=== PATIENT | male | born 1940 | race Caucasian/White ===

== ENCOUNTER → 2017-04-17 | Outpatient (CLI) | payer MEDICARE ==
[~2017-04-17] MED LIST: ASA325 PO; GLIMEPIRIDE4 MG PO; NORCO 7.5-3251 EACH PO; PHENTERMINE H37.5 MG PO
--- NOTE | 2017-04-18 08:37 | Diagnostic Imaging Report ---
Exam: Lumbar spine MRI without IV contrast History: Low back pain with left-sided sciatica. Comparison studies: Lumbar spine CT 03/05/2017. Technique: Sagittal and axial T2 , sagittal T1 and IR, axial spin density oblique. Intravenous contrast: None Findings: Number of lumbar vertebral bodies: 5. Alignment: Normal lumbar lordosis. Mild S shaped scoliosis with thoracolumbar curvature convex to the left at T11 and mild lumbar curvature convex to the right centered at L3-L4. Soft tissues: No T2 hyperintense inflammatory changes. Paraspinal muscles: Mild symmetric atrophy. Lower thoracic cord: Normal in signal and morphology. The tip of the conus is at L1. Cauda equina: No masses. No arachnoiditis. Vertebrae: Incidental few scattered T1 hyperintense vertebral body hemangiomas. No infection or other neoplasm. No acute fractures. Chronic anterior wedge compression deformity at T11 results in approximately 75% height loss anteriorly on the right. Chronic T10 superior endplate deformity results in approximately 40% height loss centrally. Degenerative changes: T10-T11: Mildly degenerated disc. Minimal retropulsion of the superior T11 endplate results in minimal canal stenosis. Patent foramina. T11-T12 and T12-L1: Right anterior marginal osteophytes. Patent canal and foramina. L1-L2: Mildly degenerated disc with mild endplate edema on the right due to curvature. Minimal retrolisthesis of L1 on L2 with associated uncovered disc/disc bulge asymmetric to the right, right foraminal disc osteophyte complex, facet arthrosis, and thickened ligamentum flavum with mild canal stenosis and moderate right foraminal stenosis. No significant left frontal stenosis. L2-L3: Mildly degenerated disc. Asymmetric right disc bulge, thickened ligamentum flavum and facet arthrosis with mild canal and bilateral foraminal stenosis. L3-L4: Mildly degenerated disc. Minimal anterolisthesis of L3 on L4 with associated disc bulge, small central disc protrusion, thickened ligamentum flavum and facet arthrosis with mild to moderate right foraminal stenosis, mild left foraminal stenosis and mild canal stenosis. L4-L5: Moderately degenerated disc with loss of disc height. Disc osteophyte complex with calcified central disc extrusion, thickened ligamentum flavum and facet arthrosis with mild canal stenosis and mild bilateral foraminal stenosis (left greater than right). L5-S1: Mildly degenerated disc. Disc osteophyte complex with small central calcified disc extrusion and facet arthrosis without significant canal stenosis or foraminal stenosis. No nerve root impingement. IMPRESSION: 1. Chronic T11 anterior wedge and superior T10 endplate compression deformities with mild thoracolumbar scoliosis. No acute fractures. 2. Multilevel disc degeneration, worse/moderate at L4-L5. 3. Mild degenerative canal stenosis from L1 to L5. 4. Degenerative foraminal stenosis from L1 to L4, worse/moderate on the right at L1-L2. Signed by: Dr. Rolando Aguilera M.D. on 04/18/2017 8:34 AM
== END ==
LOC: MRI 13:31
PROVIDERS: ATTEND Internal Medicine
DX: M54.32 Sciatica, left side (principal)
CPT/HCPCS: 72148

== ENCOUNTER 2018-07-05 07:22 | Inpatient (IN) | payer MEDICARE ==
[~2018-07-05] VITALS: Ht 177.8 cm; Wt 95.0 kg
[~2018-07-05 07:22] MED LIST changes: +ALEVE220 M1 PO; +AUGMENTIN 500-1 EACH PO; +METFORMIN HCL500 MG PO
--- OUTSIDE RECORDS SUMMARY | 2018-07-05 07:26 | XMS REPORT ---
Author Author [facility] Address Unknown Phone Unavailable Care Team Providers Care Exchange Administrator Name Role Phone MAURICE BARRON Unavailable Unavailable DONTRELL WATERS Unavailable Unavailable Problems This patient has no known problems. Allergies, Adverse Reactions, Alerts This patient has no known allergies or adverse reactions. Medications This patient has no known medications. Results Test Description Test Time Test Comments Text Results Atomic Results Result Comments CHEST 2 VIEWS 2018-07-04 14:53:00 [place] [address] Patient Name: NIKKIE CANTRELL MR #: [id number] : 1940 Age/Sex: 77/M Req #: [id number] Adm Physician: Ordered by: MAURICE BARRON MD Report #: [id number] Location: OR Room/Bed: Procedure: [id number] DX/CHEST 2 VIEWS Exam Date: 07/04/18 Exam Time: 1400 REPORT STATUS: Signed EXAM: CHEST 2 VIEWS, PA and lateral DATE: 07/04/2018 Time sta mp on exam: 2:07 PM INDICATION: Preoperative COMPARISON: None FINDINGS: LINES/TUBES: None LUNGS: No consolidations or edema. PLEURA: No effusions or pneumothorax. HEART AND MEDIASTINUM: Normal size and contour. BONES AND SOFT TISSUES: Extensive osteophytosis of the thoracic spine. IMPRESSION: No acute thoracic abnormality. Signed by: Dr. Fransisco Landry DO on 07/04/2018 2:54 PM Dictated By: FRANSISCO LANDRY DO 53 Transcribed By: ALESSIO on 07/04/181453 COPY TO: MAURICE BARRON MD MRI SPINE LUMBAR WO [place] [address] Patient Name: NIKKIE CANTRELL MR #: [id number] : 1940 Age/Sex: 76/M Req #: [id number] Adm Physician: Ordered by: DONTRELL WATERS MD Report #: [id number] Location: MRI Room/Bed: Procedure: [id number] MRI/MRI SPINE LUMBAR WO Exam Date: Exam Time: REPORT STATUS: Signed Exam: Lumbar spine MRI without IV contrast History: Low back pain with left-sided sciatica. Comparison studies: Lumbar spine CT 03/05/2017. Technique: Sagittal and axial T2 , sagittal T1 and IR, axial spin density oblique. Intravenous contrast: None Findings: Number of lumbar vertebral bodies: 5. Alignment: Normal lumbar lordosis. Mild S shaped scoliosis with thoracolumbar curvature convex to the left at T11 and mild lumbar curvature convex to the right centered at L3-L4. Soft tissues: No T2 hyperintense inflammatory changes. Paraspinal muscles: Mild symmetric atrophy. Lower thoracic cord: Normal in signal and morphology. The tip of the conus is at L1. Cauda equina: No masses. No arachnoiditis. Vertebrae: Incidental few scattered T1 hyperintense vertebral body hemangiomas. No infection or other neoplasm. No acute fractures. Chronic anterior wedge compression deformity at T11 results in approximately 75% height loss anteriorly on the right. Chronic T10 superior endplate deformity results in approximately 40% height loss centrally. Degenerative changes: T10-T11: Mildly degenerated disc. Minimal retropulsion of the superior T11 endplate results in minimal canal stenosis. Patent foramina. T11-T12 and T12-L1: Right anterior marginal osteophytes. Patent canal and foramina. L1-L2: Mildly degenerated disc with mild endplate edema on the right due to curvature. Minimal retrolisthesis of L1 on L2 with associated uncovered disc/disc bulge asymmetric to the right, right foraminal disc osteophyte complex, facet arthrosis, and thickened ligamentum flavum with mild canal stenosis and moderate right foraminal stenosis. No significant left frontal stenosis. L2-L3: Mildly degenerated disc. Asymmetric right disc bulge, thickened ligamentum flavum and facet arthrosis with mild canal and bilateral foraminal stenosis. L3-L4: Mildly degenerated disc. Minimal anterolisthesis of L3 on L4 with associated disc bulge, small central disc protrusion, thickened ligamentum flavum and facet arthrosis with mild to moderate right foraminal stenosis, mild left foraminal stenosis and mild canal stenosis. L4-L5: Moderately degenerated disc with loss of disc height. Disc osteophyte complex with calcified central disc extrusion, thickened ligamentum flavum and facet arthrosis with mild canal stenosis and mild bilateral foraminal stenosis (left greater than right). L5-S1: Mildly degenerated disc. Disc osteophyte complex with small central calcified disc extrusion and facet arthrosis without significant canal stenosis or foraminal stenosis. No nerve root impingement. IMPRESSION: 1. Chronic T11 anterior wedge and superior T10 endplate compression deformities with mild thoracolumbar scoliosis. No acute fractures. 2. Multilevel disc degeneration, worse/moderate at L4-L5. 3. Mild degenerative canal stenosis from L1 to L5. 4. Degenerative foraminal stenosis from L1 to L4, worse/moderate on the right at L1-L2. Signed by: Dr. Maurice Aguilera M.D. on 04/18/2017 8:34 AM Dictated By: MAURICE AGUILERA MD 3 Transcribed By: ALESSIO on 04/18/17833 COPY TO: DOTNRELL WATERS MD CT LUMBAR SPINE [place] [address] Patient Name: NIKKIE CANTRELL MR #: [id number] : 1940 Age/Sex: 76/M [facility] #: [id number] Re #: [id number] [facility] Physician: Ordered by: DONTRELL WATERS MD Report #: [id number] Location: CT Room/Bed: Procedure: [id number] CT/CT LUMBAR SPINE WO Exam Date: 02/13/17 Exam Time: 1430 REPORT STATUS: Signed EXAMINATION: CT of the lumbar spine HISTORY:Low back pain, radiculopathy COMPARISON:None available TECHNIQUE: Multidetector helical axial images were obtained without contrast from L1 to S1. The images were reconstructed using bone and soft tissue algorithms and were viewed in axial, sagittal, and coronal planes. FINDINGS: Alignment:Normal alignment and lordosis. Minimal degenerative retrolisthesis at L1-L2 and anterolisthesis at L3-L4. Mild S-shaped scoliosis Vertebral bodies:Normal height and density. Paraspinal muscles:Normal. Intervertebral disks: L1-L2: Mild symmetric disc and facet arthrosis. Moderate canal stenosis. Moderate right and mild left foraminal stenoses L2-L3: Mild symmetric disc bulge and facet arthrosis. Mild canal and foraminal narrowing.. L3-L4: Mild symmetric disc bulge, ligamenta flava thickening and facet arthrosis. Moderate canal and mild foraminal stenoses. L4-L5: Disc osteophyte complex formation, central disc vacuum phenomena, marginal endplate osteophytes, ligamenta flava thickening and facet arthrosis. Moderate spinal canal and bilateral foraminal stenosis.. L5-S1: Posterior disc osteophyte and bilateral facet arthrosis. Minimal foraminal narrowing.. Visualized sacroiliac joints: Prominent degenerative changes with fusion of the partially visualized right SI joint. IMPRESSION: 1. Moderate degenerative spinal canal and right foraminal stenosis at L1 S2. 2. Moderate degenerative spinal canal and mild foraminal stenosis at L3-L4. 3. Moderate degenerative spinal canal and foraminal stenosis at L4-L5. 4. Partially visualized degenerative changes of the sacroiliac joints with fusion on the right. Signed by: Dr. Stepan Padron M.D. on 02/14/2017 8:36 AM Dictated By: STEPAN PADRON MD 5 Transcribed By: ALESSIO on 02/14/17835 COPY TO: DONTRELL WATERS MD CT CHEST WO [place] [address] Patient Name: NIKKIE CANTRELL MR #: [id number] : 1940 Age/Sex: 76/M Req #: [id number] Adm Physician: Ordered by: DONTRELL WATERS MD Report #: [id number] Location: CT Room/Bed: Procedure: [id number] CT/CT CHEST WO Exam Date: 02/13/17 Exam Time: 1430 REPORT STATUS: Signed PROCEDURE: CT CHEST WITHOUT CONTRAST CT scan of the chest WITHOUT intravenous contrast, using standard protocol. TECHNIQUE: The chest was scanned utilizing a multidetector helical scanner from the apex to the level of the adrenal glands. No IV contrast was administered per physician's request. Coronal and sagittal multiplanar reformations were obtained. COMPARISON: None. INDICATIONS: SOB FINDINGS: Lines/tubes: None. Lungs and Airways: Linear subsegmental atelectasis versus scarring in the posteromedial right lower lobe (sagittal image 15, and series 3, image 92) and lingula (series 3, image 89). No consolidation or other opacities, masses, or pulmonary nodules. Airways are clear, without endobronchial lesions.. Pleura: No effusion, or pneumothorax. Heart and mediastinum: Thyroid is unremarkable. Heart size is normal. No pericardial effusion. Mild atherosclerotic calcification of the aortic valve and coronary arteries. Moderate atherosclerotic calcification of the thoracic aortic arch. Aorta is non-aneurysmal. No pulmonary artery is normal in caliber. Lymph nodes: No mediastinal, hilar, or axillary adenopathy. Abdomen: Limited views of the upper abdomen show no abnormality within the visualized liver, spleen, pancreas. The adrenal glands are unremarkable. Bones: No acute bony abnormalities. Multilevel degenerative disc changes in the thoracic spine. Soft tissues are grossly unremarkable. IMPRESSION: 1. subsegmental atelectasis versus scarring in the posteromedial right lower lobe and lingula. The lungs are otherwise clear. Cynthia Ruggiero M.D. Dictated by: Cynthia Ruggiero M.D. on 02/13/2017 at 19:05 Electronically approved by: Cynthia Ruggiero M.D. on 02/13/2017 at 19:05 Dictated By: CYNTHIA RUGGIERO MD 04 Transcribed By: MEI on 02/13/171904 COPY TO: DONTRELL WATERS MD
[2018-07-05] MEDS ORDERED: MORPHINE SULFATE 2 MG/ML SYR 1ML IV PRN (07:30)
[2018-07-05] MEDS ORDERED: ONDANSETRON HCL INJ 2MG/ML 2ML 2 MG/ML VIAL IV PRN (07:30)
--- NOTE | 2018-07-05 08:17 | NUR ---
Pt arrived to the ER with c/o abnormal labs. Pt states he came yesterday to have preop testing and states his bilirubin was 10.7 and sent to the ER for further eval. Pt states he is scheduled to have a cholecystectomy Saturday. Pt reports pain to RUQ abdomen currently 05/18, states does not need any pain medication at the time, Dr. Alvarado present. Pt AAOx4. RR even and unlabored. Pt placed on cardiac monitoring, NIBP and pulse ox. Call light in reach. NAD noted. at bedside. Will continue to monitor.
[2018-07-05 08:21] LABS: BASOPHILS # (AUTO) 0.1 (0.0-0.1); BASOPHILS % 1.1 % (0.0-1.0); EOSINOPHILS # (AUTO) 0.2 (0.0-0.4); EOSINOPHILS % 2.7 % (0.0-6.0); HEMATOCRIT 43.3 % (38.2-49.6); HEMOGLOBIN 14.8 g/dL (14.0-18.0); LYMPHOCYTES # (AUTO) 1.4 (1.0-3.2); LYMPHOCYTES % 21.7 % (18.0-39.1); MEAN CORPUSCULAR HEMOGLOBIN 30.5 pg (28-32); MEAN CORPUSCULAR HGB CONC 34.2 g/dL (31-35); MEAN CORPUSCULAR VOLUME 89.3 fL (81-99); MONOCYTES # (AUTO) 0.6 (0.2-0.8); MONOCYTES % 9.6 % (4.4-11.3); NEUTROPHILS % 64.1 % (38.7-80.0); PLATELET COUNT 191 x10e3/uL (140-360); RED BLOOD COUNT 4.85 x10e6/uL (4.3-5.7); RED CELL DISTRIBUTION WIDTH 13.2 % (11.7-14.4)
[2018-07-05 08:37] LABS: ALBUMIN 3.3 g/dL (3.5-5.0); ALBUMIN/GLOBULIN RATIO 0.8 (0.8-2.0); ANION GAP 14.3 mmol/L (8-16); CALCIUM 9.9 mg/dL (8.4-10.2); CREATININE, SERUM 1.24 mg/dL (0.72-1.25); POTASSIUM 4.3 mmol/L (3.5-5.1)
[2018-07-05] MEDS ORDERED: SODIUM CHLORIDE 0.9% 1000ML 1,000 ML IV STA (09:10)
[2018-07-05 09:26] LABS: BILIRUBIN,URINE 3+ (NEGATIVE); CLARITY,URINE HAZY (CLEAR); COLOR,URINE ORANGE (YELLOW); KETONES,URINE TRACE (NEGATIVE); LEUKOCYTE ESTERASE ,URINE NEGATIVE (NEGATIVE); NITRITE,URINE NEGATIVE (NEGATIVE); PROTEIN,URINE DIPSTICK 1+ (NEGATIVE); URINE UROBILINOGEN 1 mg/dL (0.2 - 1)
[2018-07-05 09:27] LABS: AMORPHOUS SEDIMENT,URINE MODERATE (FEW); BACTERIA,URINE MANY /HPF; EPITHELIAL CELLS,URINE MODERATE /LPF; HYALINE CASTS 0-1 (0-1); MUCUS,URINE MODERATE (RARE); RBC,URINE 0-5 /HPF (0-5)
--- NOTE | 2018-07-05 10:42 | Diagnostic Imaging Report ---
EXAM: CT Abdomen and Pelvis WITH contrast INDICATION: ^elevated bili ^[id number] ^1000 COMPARISON: Chest radiograph 07/04/2018 TECHNIQUE: Abdomen and pelvis were scanned utilizing a multidetector helical scanner from the lung base to the pubic symphysis after administration of IV contrast. Coronal and sagittal reformations were obtained. Routine protocol was performed. Scan was performed when during portal venous phase. IV CONTRAST: 100 mL of Isovue-370 ORAL CONTRAST: Water RADIATION DOSE: Total DLP: 645.37 mGy*cm Estimated effective dose: (DLP x 0.015 x size factor) mSv COMPLICATIONS: None FINDINGS: LINES and TUBES: None. LOWER THORAX: Unremarkable HEPATOBILIARY: No focal hepatic lesions. No intrahepatic biliary duct dilatation. However, there is mild dilatation of the common bile duct measuring 1 cm. No hyperdense stones are seen in the common bile duct. GALLBLADDER: 2 adjacent calcified gallstones measuring up to 0.7 cm near the gallbladder neck with associated mild distention of the gallbladder measuring 10 cm in length x 4.8 cm in transverse diameter. No wall thickening. SPLEEN: No splenomegaly. PANCREAS: No focal masses or ductal dilatation. ADRENALS: No adrenal nodules KIDNEYS/URETERS: Kidneys enhance symmetrically. No hydronephrosis. 2.2 cm low-attenuation upper pole right renal cyst. No stones. GI TRACT: No abnormal distention, wall thickening, or evidence of bowel obstruction. Appendix is not visualized. Surgical clip adjacent to a loop of small bowel in the left lower quadrant. PELVIC ORGANS/BLADDER: Unremarkable. LYMPH NODES: No lymphadenopathy. VESSELS: Unremarkable. PERITONEUM / RETROPERITONEUM: No free air or fluid. BONES: Moderate wedge compression deformity of T11 vertebral body. Moderate multilevel degenerative changes through the lumbar spine. Posterior osteophyte complex at L4-L5 without significant spinal canal narrowing. SOFT TISSUES: Small fat-containing bilateral inguinal hernias. IMPRESSION: Cholelithiasis near the gallbladder neck with associated distended gallbladder (gallbladder hydrops). Moderate dilatation of the common bile duct without visualized stones. No gallbladder wall thickening or pericholecystic fluid. Signed by: Dr. Delores Lynch M.D. on 07/05/2018 10:39 AM
--- NOTE | 2018-07-05 10:50 | NUR ---
RECEIVED TO GIOVANNA AAOX3 NO DISTRESS NOTED, UPDATED ON POC VOICED UNDERSTANDING, DENIES PAIN AT THIS TIME, R AC 20G NO SS OF INFILTRATION NOTED, NO OTHER CO VOICED,CALL LIGHT IN REACH WILL CONTINUE TO MONITOR
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
[2018-07-05 12:40] VITALS: BP 183/87
[2018-07-05] MEDS ORDERED: LISINOPRIL10 MG PO (12:49)
[2018-07-05] MEDS ORDERED: DEXTROSE 50% SYRINGE 50 ML IV PRN (14:00)
[2018-07-05] MEDS: INSULIN LISPRO 100 UNIT/1 ML 3ML VIAL SQ SCH ×2 (16:30→21:37)
[2018-07-05 17:24] VITALS: BP 189/91
--- NOTE | 2018-07-05 17:50 | Diagnostic Imaging Report ---
EXAM: Magnetic Resonance Cholangiopancreatography (M.R.C.P.) INDICATION: ^JAUDICE ^N COMPARISON: CT abdomen and pelvis 07/05/2018 TECHNIQUE: Multiplanar, multisequence MRCP was performed, with sequences including coronal turbo spin-echo T1-weighted scans, [facility] MRCP scans, coronal spin, coronal MPR 2, SMRCP 3D HR, [facility] MRCP GUERRIER. IV Contrast: None Oral Contrast: None Medications: None COMPLICATIONS: None FINDINGS: LOWER THORAX: Unremarkable. HEPATOBILIARY: No focal hepatic lesions. No intrahepatic biliary ductal dilation. Moderate dilatation of the common bile duct, measuring up to 1 cm in transverse diameter. There is abrupt cut off of the distal segment on series 8, image 28 and series 901 image 1. 1 compared this area to the thin slab MRCP there appears to be a 7 mm filling defect on series 11, image 12. GALLBLADDER: Again noted, there are 2 small gallstones near the gallbladder neck with associated mild distention of the gallbladder measuring up to 10 cm in length. The cystic duct is normal in caliber and without filling defects. SPLEEN: No splenomegaly. PANCREAS: No focal masses or ductal dilatation. ADRENALS: No adrenal nodules KIDNEYS/URETERS: No hydronephrosis. Unchanged right renal cyst. No stones. GI TRACT: No abnormal distention, wall thickening, or evidence of bowel obstruction. Appendix is normal. LYMPH NODES: No lymphadenopathy. VESSELS: Unremarkable. PERITONEUM / RETROPERITONEUM: No free air or fluid. BONES: Unremarkable. SOFT TISSUES: Unremarkable. IMPRESSION: 1. Cholelithiasis with associated distended gallbladder. No wall thickening or pericholecystic fluid collection to suggest acute cholecystitis. 2. Persistent dilatation of the common bile duct with suspected small distal stone near the ampulla of Vater. Consider conventional ERCP for definitive diagnosis. Signed by: Dr. Delores Lynch M.D. on 07/05/2018 5:47 PM
[2018-07-05] MEDS: CALCIUM CARBONATE 500 MG CHEWABLE TABS PO PRN (18:40)
--- NOTE | 2018-07-05 19:43 | NUR ---
Received patient in bedside report. Patient resting in bed, family member at bedside. No pain reported, no S&S of distress noted. Bed locked in lowest position, call light in reach.
[2018-07-05 20:00] VITALS: BP 165/78
[2018-07-05 20:10] VITALS: BP 165/78
--- NOTE | 2018-07-05 20:10 | NUR ---
Patient noted to have own socks on. Got non-skid footwear and explained importance of wearing them any time he stands up or ambulates. Patient refused to put them on at this time and said he didn't think he needed them. Explained importance of wearing them as a safety measure to prevent falls. Placed them at end of bed and asked him to put them on before he got up to walk. Patient verbalized understanding.
[2018-07-05] MEDS ORDERED: SODIUM CHLORIDE 0.9% 50ML 50 ML ONE (21:11)
[2018-07-05] MEDS ORDERED: IOPAMIDOL 370 MG/ML 200 ML INFUS..BTL INJ ONE (21:11)
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
[2018-07-06] VITALS (8 sets, daily range): BP systolic 153–181; BP diastolic 76–86
[2018-07-06 06:15] LABS: BASOPHILS # (AUTO) 0.1 (0.0-0.1); BASOPHILS % 1.1 % (0.0-1.0); EOSINOPHILS # (AUTO) 0.2 (0.0-0.4); EOSINOPHILS % 3.2 % (0.0-6.0); HEMATOCRIT 40.8 % (38.2-49.6); HEMOGLOBIN 14.1 g/dL (14.0-18.0); LYMPHOCYTES # (AUTO) 1.3 (1.0-3.2); LYMPHOCYTES % 20.4 % (18.0-39.1); MEAN CORPUSCULAR HEMOGLOBIN 30.9 pg (28-32); MEAN CORPUSCULAR HGB CONC 34.6 g/dL (31-35); MEAN CORPUSCULAR VOLUME 89.5 fL (81-99); MONOCYTES # (AUTO) 0.5 (0.2-0.8); MONOCYTES % 7.8 % (4.4-11.3); NEUTROPHILS # (AUTO) 4.1 (2.1-6.9); NEUTROPHILS % 66.7 % (38.7-80.0); PLATELET COUNT 176 x10e3/uL (140-360); RED BLOOD COUNT 4.56 x10e6/uL (4.3-5.7); RED CELL DISTRIBUTION WIDTH 13.2 % (11.7-14.4)
[2018-07-06 06:37] LABS: ALANINE AMINOTRANSFERASE 283 IU/L (0-55); ALBUMIN/GLOBULIN RATIO 0.8 (0.8-2.0); ALKALINE PHOSPHATASE 187 IU/L (40-150); ANION GAP 12.2 mmol/L (8-16); BLOOD UREA NITROGEN 13 mg/dL (7-26); BUN/CREATININE RATIO 12 (6-25); CALCIUM 9.4 mg/dL (8.4-10.2); CARBON DIOXIDE 18 mmol/L (22-29); CHLORIDE 109 mmol/L (98-107); CREATININE, SERUM 1.11 mg/dL (0.72-1.25); EST GLOMERULAR FILTRATION RATE > 60 ML/MIN (60-); GLUCOSE 145 mg/dL (74-118); POTASSIUM 4.2 mmol/L (3.5-5.1); SODIUM 135 mmol/L (136-145)
--- NOTE | 2018-07-06 07:00 | NUR ---
assessment complete no distress noted denies pain at this time, r ac 20g no ss of infiltration noted, no other co voiced call light in reach will continue to monitor
[2018-07-06 07:20] LABS: CHOL/HDL RATIO 9.4 (3.9-4.7); MAGNESIUM 1.6 MG/DL (1.3-2.1); PHOSPHORUS 2.9 MG/DL (2.3-4.7)
[2018-07-06] MEDS: INSULIN LISPRO 100 UNIT/1 ML 3ML VIAL SQ SCH ×4 (07:30→21:16)
[2018-07-06] MEDS: LISINOPRIL 10 MG TAB PO SCH (08:59)
--- NOTE | 2018-07-06 09:19 | Progress Note ---
DATE: SUBJECTIVE: The patient is a 77-year-old man comes in with cholecystitis. The patient also has had ERCP done yesterday, which showed a defect in the CBD. Currently continues to have abdominal pain, but controlled. The patient is alert and oriented x3. PHYSICAL EXAMINATION: VITAL SIGNS: Temperature is 98.5, blood pressure is 157/79, and pulse oximetry of 97%. HEENT: Normocephalic, atraumatic. Pupils have icterus. CVS: S1 and S2, normal. Regular rhythm. ABDOMEN: Tender in the upper right quadrant. LUNGS: Good air entry into lung skelton. EXTREMITIES: No clubbing, no cyanosis, no edema. LABORATORY VALUES: White count is 6.18, hemoglobin of 14.1, and hematocrit of 40.8. Chemistries; sodium of 135, potassium of 4.2, BUN of 13, and creatinine of 1.11. AST is 135, ALT is 283, alkaline phos is 187, and total bilirubin is 11 today. ASSESSMENT: 1. Acute cholecystitis. 2. The patient needs cholecystectomy. The patient's MRCP cholelithiasis with associated distended gallbladder, persistent dilatation of common bile duct with suspected small distal stone near the ampulla of Vater, consider conventional ERCP for definitive diagnosis. PLAN: Plan is to continue to monitor the patient. He will need surgery. The patient also has history of hypertension and diabetes mellitus. We will continue with sliding scale. Continue with beta-blockade for hypertension. Continue with his current medication. Further recommendation per clinical course. The patient will need ERCP prior to surgery, which GI has been consulted already. MD LILIAN Urrutia/MODL /[id number]
[2018-07-06] MEDS ORDERED: ONDANSETRON HCL 4 MG ORAL DISINTEGRATING TAB PO PRN (16:00)
[2018-07-06] MEDS: CLONIDINE HCL 0.1 MG TAB PO PRN (17:25)
--- NOTE | 2018-07-06 19:16 | NUR ---
BEDSIDE SHIFT REPORT PERFORMED. RECEIVED PT LAYING SEMI FOWLERS IN BED, AAOX3, RR EVEN AND NON-LABORED, ON RA. NO S/SX OF DISTRESS NOTED. LEFT PT LAYING SEMI FOWLERS IN BED, BED IN LOW LOCKED POSITION SIDE RAILS UP X2, CALL LIGHT AND PHONE WITHIN REACH.
[2018-07-07] VITALS (8 sets, daily range): BP systolic 120–144; BP diastolic 67–80
[2018-07-07] MEDS: INSULIN LISPRO 100 UNIT/1 ML 3ML VIAL SQ SCH ×4 (07:30→21:08)
--- NOTE | 2018-07-07 07:30 | NUR ---
RECEIVED PATIENT AND WALKING ROUNDS COMPLETE. PATIENT AWAKE AT THIS TIME. NO SIGNS OF DISTRESS. CALL LIGHT IN REACH WILL CONTINUE TO MONITOR.
[2018-07-07] MEDS ORDERED: IOPAMIDOL 610MG/1ML 300 MG/ML VIAL IV ONE (07:42)
[2018-07-07] MEDS ORDERED: MORPHINE SULFATE INJ 4 MG/ML INJ 1ML IV PRN (07:45)
--- NOTE | 2018-07-07 07:45 | NUR ---
PATIENT A/O X3, EVEN RESPIRATIONS ON RA. BOWEL SOUNDS ACTIVE, SKIN INTACT, NO EDEMA. PATIENT JAUNDICED. RIGHT AC 20 GAUGE IV SL INTACT AND PATENT. PATIENT NPO AT THIS TIME FOR ERCP TODAY. PATIENT AMBULATES INDEPENDENTLY. BED LOW, WHEELS LOCKED, CALL LIGHT IN REACH, SIDE RAILS X2. FAMILY AT BEDSIDE. VITAL SIGNS STABLE. WILL CONTINUE TO MONITOR PATIENT.
--- NOTE | 2018-07-07 08:09 | NUR ---
PATIENT LEFT TO OR T Addendum: 07/07/18 at 0809 by Sharron Severino RN PATIENT LEFT TO OR VIA STRETCHER.
[2018-07-07] MEDS: LISINOPRIL 10 MG TAB PO SCH (08:50)
--- NOTE | 2018-07-07 09:16 | NUR ---
PATIENT BACK FROM OR AT THIS TIME. VITAL SIGNS STABLE, CALL LIGHT IN REACH, WILL CONTINUE TO MONITOR.
[2018-07-07] MEDS ORDERED: VENTOLIN HFA18 GM (11:14)
[2018-07-07] MEDS: ALBUTEROL SULFATE HFA 8GM INHALATION AEROSOL INH PRN (14:41)
[2018-07-07] MEDS ORDERED: GLYCOPYRROLATE INJ 1MG/ 5 ML SYR ONE (19:03)
[2018-07-07] MEDS ORDERED: NEOSTIGMINE 5 MG/5ML SYR ONE (19:03)
[2018-07-07] MEDS ORDERED: SEVOFLURANE INHAL SOLN 250 ML PEN BTL ONE (19:03)
[2018-07-07] MEDS ORDERED: PROPOFOL IV EMULSION 10 MG/ML 20 ML VIAL ONE (19:03)
[2018-07-07] MEDS ORDERED: ROCURONIUM BROMIDE 10 MG/ML 5ML VIAL ONE (19:03)
[2018-07-07] MEDS ORDERED: LIDOCAINE HCL 2% LOCAL INJ 5 ML SDV VIAL INJ ONE (19:03)
[2018-07-07] MEDS ORDERED: ONDANSETRON HCL INJ 2MG/ML 2ML 2 MG/ML VIAL ONE (19:03)
--- NOTE | 2018-07-07 19:40 | NUR ---
Report taken from morning rn.walking rounds done.tolerate the diet.
[2018-07-07] MEDS ORDERED: FENTANYL CITRATE/PF 100MCG/2 ML INJ ONE (19:48)
[2018-07-08] VITALS (9 sets, daily range): BP systolic 123–188; BP diastolic 58–99
--- NOTE | 2018-07-08 00:10 | NUR ---
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
[2018-07-08 06:04] LABS: BASOPHILS # (AUTO) 0.1 (0.0-0.1); BASOPHILS % 0.8 % (0.0-1.0); EOSINOPHILS # (AUTO) 0.2 (0.0-0.4); EOSINOPHILS % 2.6 % (0.0-6.0); HEMATOCRIT 40.4 % (38.2-49.6); HEMOGLOBIN 13.3 g/dL (14.0-18.0); LYMPHOCYTES # (AUTO) 1.4 (1.0-3.2); LYMPHOCYTES % 18.1 % (18.0-39.1); MEAN CORPUSCULAR HEMOGLOBIN 30.2 pg (28-32); MEAN CORPUSCULAR HGB CONC 32.9 g/dL (31-35); MEAN CORPUSCULAR VOLUME 91.8 fL (81-99); MONOCYTES # (AUTO) 0.7 (0.2-0.8); MONOCYTES % 8.7 % (4.4-11.3); NEUTROPHILS # (AUTO) 5.2 (2.1-6.9); NEUTROPHILS % 68.7 % (38.7-80.0); PLATELET COUNT 179 x10e3/uL (140-360); RED CELL DISTRIBUTION WIDTH 13.3 % (11.7-14.4)
[2018-07-08 06:25] LABS: ALBUMIN 2.8 g/dL (3.5-5.0); ALBUMIN/GLOBULIN RATIO 0.8 (0.8-2.0); ANION GAP 10.9 mmol/L (8-16); CALCIUM 8.7 mg/dL (8.4-10.2); CREATININE, SERUM 1.22 mg/dL (0.72-1.25); POTASSIUM 3.9 mmol/L (3.5-5.1)
[2018-07-08 06:54] LABS: ALBUMIN 2.8 g/dL (3.5-5.0); BILIRUBIN,DIRECT 9.1 mg/dL (0.0-0.5)
--- NOTE | 2018-07-08 07:00 | NUR ---
Report given to the oncoming rn.walking rounds done.stable condition.
[2018-07-08] MEDS: INSULIN LISPRO 100 UNIT/1 ML 3ML VIAL SQ SCH ×4 (07:30→20:55)
--- NOTE | 2018-07-08 07:47 | NUR ---
RECEIVED PATIENT AWAKE IN BED NO SIGNS OF DISTRESS AT THIS TIME. BED LOW, WHEELS LOCKED, SIDE RAILS X2, CALL LIGHT IN REACH. FAMILY AT BEDSIDE. WILL CONTINUE TO MONITOR PATIENT.
[2018-07-08] MEDS: LISINOPRIL 10 MG TAB PO SCH (08:05)
--- NOTE | 2018-07-08 08:20 | NUR ---
PATIENT LEFT TO OR AT THIS TIME VIA STRETCHER.
[2018-07-08] MEDS ORDERED: BUPIVACAINE HCL 0.5% INJ 30 ML VIAL INJ ONE (08:29)
[2018-07-08] MEDS ORDERED: ONDANSETRON HCL INJ 2MG/ML 2ML 2 MG/ML VIAL IV PRN (09:45)
[2018-07-08] MEDS ORDERED: MORPHINE SULFATE INJ 4 MG/ML INJ 1ML IV PRN (09:45)
[2018-07-08] MEDS: SODIUM CHLORIDE 0.9% 1000ML 1,000 ML IV SCH ×2 (09:45→19:45)
[2018-07-08] MEDS ORDERED: FENTANYL CITRATE/PF 100MCG/2 ML INJ ONE ×2 (10:11→19:59)
[2018-07-08] MEDS ORDERED: ALBUTEROL SULF 0.083% NEB SOLN 3 ML NEB ONE (10:21)
--- NOTE | 2018-07-08 11:16 | NUR ---
PATIENT BACK FROM RECOVERY AT THIS TIME. 4 SITES ON ABDOMEN DRY/INTACT. LR @ 100 CC/HR. FAMILY AT BEDSIDE, BED LOW, WHEELS LOCKED, SIDE RAILS X2, CALL LIGHT IN REACH. WILL CONTINUE TO MONITOR PATIENT.
[2018-07-08] MEDS: HYDROCODONE/APAP 5MG-325MG TAB PO PRN ×2 (13:47→19:45)
[2018-07-08] MEDS ORDERED: CEFAZOLIN SOD 1 GM VIAL IV SCH (14:00)
--- NOTE | 2018-07-08 14:38 | NUR ---
CASE MANAGEMENT ASSESSMENT Sales Recruiting Coordinator to bedside to discuss plan of care with patient/family. CM/SW role and care transitions discussed. Anticipated discharge plan discussed along with duration of care. CM/SW discussed patients right to make decisions in care. CM/SW work hours given. Patient lives: with Angela Admit/Transfer: thru ED Hospital/ER visits since last admit: 1 POA/Emergency contact: Angela Delgado [phone] Current/Previous Home Health: none PCP/Follow-up Care: Dr. Hannah - PCP; states will follow up with Dr. Howell on Saturday. will call and make appointment Current/Previous DME: none Medications (referring to index hospitalization or the first time you were in the hospital) a. Were changes made in your medications when you were in the hospital on [date of index hospitalization]? n/a b. Did you understand the changes? n/a c. Were you able to obtain your new medications right away? n/a d. Were you able to take your medications like the doctor wanted you to? n/a e. Did the hospital give you an accurate, easy to understand list of medications when you left? n/a Scale of 1-10 how comfortable does patient feel with disease management in outpatient settin Other Services: none Employment Status: retired Areas of Concerns: bilirubinemia Referral Needs: none Education Needs: medical management IMM/CHO given and signed (if applicable): IMM letter delivered and explained to pt. He verbalized understanding. Signed copy placed in chart. Copy to pt. Goal for discharge: home Anticipate dc tomorrow. CM/SW left business card at the bedside with contact information. Name and number was also written on the patients whiteboard. Patient verbalized understanding of discussion. CM will follow-up with ongoing discharge and transition of care needs.
[2018-07-08] MEDS ORDERED: DOCUSATE SODIUM 100 MG CAP PO ONE (16:30)
[2018-07-08] MEDS: CEFAZOLIN SOD 2 GM/D5W 50ML 50 ML IV SCH (16:33)
--- NOTE | 2018-07-08 17:05 | Operative Report ---
DATE OF PROCEDURE: 07/08/2018 SURGEON: Rolando Howell MD PREOPERATIVE DIAGNOSES: Acute on chronic cholecystitis, cholelithiasis. POSTOPERATIVE DIAGNOSES: Acute on chronic cholecystitis, cholelithiasis. PROCEDURE: Diagnostic laparoscopy, laparoscopic cholecystectomy. STOCK CHECKER: None. ANESTHESIA: General endotracheal. INDICATIONS AND FINDINGS: The patient is a 77-year-old male, admitted to the hospital with abdominal pain and jaundice. Workup revealed gallstones and dilated bile duct. Preop ERCP and sphincterotomy and stone removal was done. Surgery based on the gallbladder was very distended containing sludge and small stones. Cystic duct was about 3 mm in diameter. Common bile duct was about 7 mm in diameter. Liver, stomach, lower abdomen all appeared normal. Several adhesions involving omentum. TECHNIQUE: After adequate general endotracheal anesthesia with the patient in supine position, the abdomen was prepped and draped in a sterile fashion with ChloraPrep solution. To the right of the umbilicus, skin and subcutaneous tissue was infiltrated with 0.5% Marcaine, transverse incision was made, abdominal wall was elevated and Veress needle was introduced. Pneumoperitoneum was then created. A 10 mm trocar and cannula was then passed through this wound. Laparoscopic camera was introduced. Initial laparoscopy revealed adhesions involving the omentum in the midline. The gallbladder was very distended and discolored. 10 mm trocar and cannulas placed in epigastrium and two 5 mm trocars and cannulas placed in the right upper quadrant, these were placed under direct vision. Gallbladder was tense, was decompressed with a needle, contained some thick sludge. Fundus of the gallbladder was grasped and retracted superiorly. There were adhesions over the neck and fundus of the gallbladder involving omentum, these were lysed staying close to the gallbladder. Neck of the gallbladder was grasped, retracted laterally. Peritoneum over the neck of the gallbladder was incised. The gallbladder and cystic duct junction was dissected free. Cystic artery was also dissected free. The neck of the gallbladder completely dissected free. The cystic duct was divided between hemoclips with three clips being left on the common bile duct side. Cystic artery was also divided between hemoclips close to the gallbladder. The posterior branch of cystic artery was also divided between hemoclips close to the gallbladder. The gallbladder was dissected free from the liver using scissors and electrocautery. Once it was entirely free, it was placed into an Endopouch and brought through the epigastric cannula, it contained multiple stones. Gallbladder bed was inspected for hemostasis, which was seen to be adequate. It was irrigated with saline. All fluid aspirated and inspected for hemostasis which was seen to be adequate. Instruments and cannulas were then removed. Pneumoperitoneum was evacuated. Wounds were then closed, fascia in the umbilical and epigastrium were closed with 0 Vicryl and skin to all wounds closed with nita. Sterile dressings applied to each wound. The patient tolerated the procedure well. Estimated blood loss was 20 mL. There were no complications. All counts were correct and the patient was taken to the recovery room in satisfactory condition. MD LASHANDA Moncada/STARR /[id number] cc: Giles Hannah MD
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
[2018-07-08] MEDS ORDERED: SEVOFLURANE INHAL SOLN 250 ML PEN BTL ONE (17:44)
[2018-07-08] MEDS ORDERED: ONDANSETRON HCL INJ 2MG/ML 2ML 2 MG/ML VIAL ONE (17:44)
[2018-07-08] MEDS ORDERED: PROPOFOL IV EMULSION 10 MG/ML 20 ML VIAL ONE (17:44)
[2018-07-08] MEDS ORDERED: CEFAZOLIN SOD 1 GM VIAL ONE (17:44)
[2018-07-08] MEDS ORDERED: DEXAMETHASONE SOD PHOS INJ 4 MG/ML VIAL ONE (17:44)
[2018-07-08] MEDS ORDERED: NEOSTIGMINE 5 MG/5ML SYR ONE (17:44)
[2018-07-08] MEDS ORDERED: EPHEDRINE SULFATE INJ 50 MG/10 ML SYR ONE (17:44)
[2018-07-08] MEDS ORDERED: LIDOCAINE HCL 2% LOCAL INJ 5 ML SDV VIAL INJ ONE (17:44)
[2018-07-08] MEDS ORDERED: GLYCOPYRROLATE INJ 1MG/ 5 ML SYR ONE (17:44)
[2018-07-08] MEDS: CLONIDINE HCL 0.1 MG TAB PO PRN (20:42)
[2018-07-09] VITALS (7 sets, daily range): BP systolic 141–177; BP diastolic 73–83
[2018-07-09] MEDS: CEFAZOLIN SOD 2 GM/D5W 50ML 50 ML IV SCH ×2 (00:20→08:30)
--- NOTE | 2018-07-09 00:58 | NUR ---
Ambulated in the partida way.no pass gas.4 trochar sites dry and intact.using ics.assessment done.no resp.distress.pain medicine given.bed locked and in lowest position.phone and call light within reach.instructed to call for assistance as needed.
[2018-07-09] MEDS: SODIUM CHLORIDE 0.9% 1000ML 1,000 ML IV SCH ×2 (05:30→15:45)
[2018-07-09 06:07] LABS: BASOPHILS % 0.4 % (0.0-1.0); EOSINOPHILS # (AUTO) 0.1 (0.0-0.4); EOSINOPHILS % 0.9 % (0.0-6.0); HEMATOCRIT 39.1 % (38.2-49.6); LYMPHOCYTES # (AUTO) 0.9 (1.0-3.2); LYMPHOCYTES % 11.8 % (18.0-39.1); MEAN CORPUSCULAR HEMOGLOBIN 30.6 pg (28-32); MEAN CORPUSCULAR HGB CONC 33.2 g/dL (31-35); MONOCYTES # (AUTO) 0.6 (0.2-0.8); NEUTROPHILS # (AUTO) 6.1 (2.1-6.9); NEUTROPHILS % 78.1 % (38.7-80.0); PLATELET COUNT 206 x10e3/uL (140-360); RED BLOOD COUNT 4.25 x10e6/uL (4.3-5.7); RED CELL DISTRIBUTION WIDTH 13.4 % (11.7-14.4)
[2018-07-09 06:35] LABS: ALANINE AMINOTRANSFERASE 201 IU/L (0-55); ALBUMIN 2.8 g/dL (3.5-5.0); ALBUMIN/GLOBULIN RATIO 0.8 (0.8-2.0); ALKALINE PHOSPHATASE 221 IU/L (40-150); BLOOD UREA NITROGEN 9 mg/dL (7-26); BUN/CREATININE RATIO 8 (6-25); CARBON DIOXIDE 23 mmol/L (22-29); CREATININE, SERUM 1.16 mg/dL (0.72-1.25); EST GLOMERULAR FILTRATION RATE > 60 ML/MIN (60-); GLUCOSE 186 mg/dL (74-118)
[2018-07-09 06:55] LABS: CHLORIDE 98 mmol/L (98-107); POTASSIUM 3.6 mmol/L (3.5-5.1); SODIUM 131 mmol/L (136-145)
[2018-07-09 07:08] LABS: ANION GAP 13.6 mmol/L (8-16)
[2018-07-09] MEDS: HYDROCODONE/APAP 5MG-325MG TAB PO PRN ×3 (07:19→20:59)
--- NOTE | 2018-07-09 07:45 | NUR ---
PT UP IN CHAIR AT BEDSIDE REPORT. PAIN ABOUT 6/10 MEDICATED EARLIER. FAMILY AT BEDSIDE
--- NOTE | 2018-07-09 08:03 | NUR ---
Report given to the oncoming rn.walking rounds done.stable condition.
[2018-07-09] MEDS: INSULIN LISPRO 100 UNIT/1 ML 3ML VIAL SQ SCH ×4 (08:24→21:20)
[2018-07-09] MEDS: LISINOPRIL 10 MG TAB PO SCH (08:30)
[2018-07-09] MEDS: DOCUSATE SODIUM 100 MG CAP PO SCH ×2 (08:32→17:38)
--- NOTE | 2018-07-09 10:00 | NUR ---
PT REMAINS UP IN CHAIR AT PRESENT
--- NOTE | 2018-07-09 13:22 | NUR ---
pt ambulating at this time, gait steady, c/o of soreness to ABD area. ABD observed to be bloated, hard on palpitation, pt stated has no gas or BM since procedure yesterday. New order from Dr. Howell for suppository to be administered.
[2018-07-09] MEDS ORDERED: BISACODYL 10 MG SUPP PR NR (14:00)
[2018-07-09] MEDS: ALBUTEROL SULFATE HFA 8GM INHALATION AEROSOL INH PRN (19:03)
[2018-07-10] VITALS (9 sets, daily range): BP systolic 139–170; BP diastolic 75–89
[2018-07-10] MEDS: SODIUM CHLORIDE 0.9% 1000ML 1,000 ML IV SCH ×3 (01:45→21:21)
[2018-07-10] MEDS: CALCIUM CARBONATE 500 MG CHEWABLE TABS PO PRN (04:49)
--- NOTE | 2018-07-10 05:26 | Diagnostic Imaging Report ---
EXAM: Abdomen 2 radiographs. INDICATION: ^abdominal pain ^[id number] ^[id number] COMPARISON: CT dated 07/05/2018 FINDINGS: Diffuse gaseous distention of bowel loops throughout the abdomen. No definite evidence of pneumoperitoneum. Large colonic stool burden. Surgical nita overlying right upper and lower quadrants. Degenerative changes of spine. IMPRESSION: Diffuse gaseous distention of bowel loops throughout the abdomen, likely ileus. Early/partial obstruction cannot be entirely excluded. Large colonic stool burden. Signed by: Dr. Elias Marquez MD on 07/10/2018 5:23 AM
[2018-07-10 06:04] LABS: ALBUMIN 2.7 g/dL (3.5-5.0); ALBUMIN/GLOBULIN RATIO 0.7 (0.8-2.0); ANION GAP 13.7 mmol/L (8-16); CALCIUM 9.3 mg/dL (8.4-10.2); CREATININE, SERUM 1.3 mg/dL (0.72-1.25); POTASSIUM 3.7 mmol/L (3.5-5.1)
[2018-07-10] MEDS: HYDROCODONE/APAP 5MG-325MG TAB PO PRN (06:28)
--- NOTE | 2018-07-10 06:32 | NUR ---
Dr. Hannah notified of KUB results, new orders received and placed
--- NOTE | 2018-07-10 06:45 | NUR ---
Dr. Howell & Dr. Crenshaw informed of KUB results. Orders received from Dr. Crenshaw for NGT placement.
[2018-07-10] MEDS ORDERED: SOD PHOSPHATE/SOD BIPHOSPHATE ENEMA 132 ML BTL PR NR ×2 (07:15→10:15)
[2018-07-10] MEDS: INSULIN LISPRO 100 UNIT/1 ML 3ML VIAL SQ SCH ×4 (07:30→21:00)
[2018-07-10] MEDS: DOCUSATE SODIUM 100 MG CAP PO SCH ×2 (08:34→17:00)
--- NOTE | 2018-07-10 08:50 | NUR ---
NGT placed at this time by Daniela Francisco LVN and Migdalia Auguste RN at this time, 16Fr to the R nares. Low suction initiated. Pt tolerated procedure well.
[2018-07-10] MEDS: LISINOPRIL 10 MG TAB PO SCH (09:00)
[2018-07-10] MEDS: SODIUM CHLORIDE 0.9% 250ML IRRIG IR SCH ×5 (11:50→23:51)
--- NOTE | 2018-07-10 15:10 | Diagnostic Imaging Report ---
EXAM: KUB-one view INDICATION: Evaluate nasogastric tube placement. COMPARISON: CT abdomen/pelvis 07/05/2018, KUB 07/10/2018 at 454AM FINDINGS: Interval placement of a nasogastric tube, which terminates in the stomach. The side port is below the GE junction. The stomach appears decompressed. There is partially seen gaseous distention of small and large bowel loops. Surgical nita project over the right upper abdomen. IMPRESSION: Enteric tube terminates in the stomach. Diffuse gaseous distention of small and large bowel loops, better characterized on prior KUB. Signed by: Dr. Amanda Guzman MD on 07/10/2018 3:06 PM
--- NOTE | 2018-07-10 20:16 | Diagnostic Imaging Report ---
EXAM: CT Abdomen and Pelvis WITHOUT contrast INDICATION: Bilirubinemia. COMPARISON: None. TECHNIQUE: Abdomen and pelvis were scanned utilizing a multidetector helical scanner from the lung base to the pubic symphysis without administration of IV contrast. Absence of intravenous contrast decreases sensitivity for detection of focal lesions and vascular pathology. Coronal and sagittal reformations were obtained. Routine protocol was performed. IV CONTRAST: None. ORAL CONTRAST: Water RADIATION DOSE: Total DLP: 616.49 mGy*cm Estimated effective dose: (DLP x 0.015 x size factor) mSv COMPLICATIONS: None FINDINGS: Examination limited due to the lack of intravenous and oral contrast. LINES and TUBES: NG/orogastric tube with distal tip within the stomach. LOWER THORAX: Small right pleural effusion. Right basilar subsegmental atelectasis. HEPATOBILIARY: No focal hepatic lesions. The common bile duct is mildly dilated measuring 1.2 cm. GALLBLADDER: There are cholecystectomy clips. SPLEEN: No splenomegaly. PANCREAS: No focal masses or ductal dilatation. ADRENALS: No adrenal nodules. KIDNEYS/URETERS: No hydronephrosis. 1.9 cm cyst in the anterior interpolar region of the right kidney on image 44 series 2. Bilateral perinephric stranding without perinephric fluid collections. Punctate nonobstructing calculus in the interpolar region of the right kidney. GI TRACT: Mild dilated small bowel loops with fluid attenuation may reflect ileus.. There are diverticula within the colon with limitation for evaluation of diverticulitis due to the presence of a small volume of free intraperitoneal fluid and mild diffuse fat stranding. Appendix is mildly prominent, measuring up to 8 mm in diameter, nonspecific. There is a moderate volume of stool within the sigmoid colon. PELVIC ORGANS/BLADDER: The prostate is mildly enlarged measuring 5.1 x 4.2 cm. LYMPH NODES: No lymphadenopathy. VESSELS: There is mild atherosclerotic disease in the aorta and major arterial branches. PERITONEUM / RETROPERITONEUM: Multiple punctate foci of free intraperitoneal air in the superior anterior right upper quadrant as seen next to image 26 series 2. This maybe postoperative in etiology. Small volume of free fluid particularly in the pelvis. BONES: Compression deformity of T11, and to lesser degree T10 which contains a superior endplate Schmorl node. Lower thoracic DISH/spondylosis. SOFT TISSUES: Bilateral small fat-containing inguinal hernias. Surgical skin nita in the mid abdomen and right upper quadrant. IMPRESSION: 1. Small volume free fluid and free intraperitoneal air may be related to recent surgical procedure. Please correlate clinically. 2. Mild dilatation of small bowel loops with fluid and may reflect ileus. 3. Colonic diverticulosis. Signed by: Dr. Leno Colón M.D. on 07/10/2018 8:13 PM
[2018-07-11] VITALS (9 sets, daily range): BP systolic 141–181; BP diastolic 76–93
[2018-07-11] MEDS: SODIUM CHLORIDE 0.9% 250ML IRRIG IR SCH ×6 (03:01→23:18)
[2018-07-11] MEDS: SODIUM CHLORIDE 0.9% 1000ML 1,000 ML IV SCH ×2 (04:01→16:04)
[2018-07-11] MEDS ORDERED: MINERAL OIL 132 ML BTL PR ONE (05:30)
[2018-07-11 06:12] LABS: HEMATOCRIT 40.6 % (38.2-49.6); HEMOGLOBIN 14.3 g/dL (14.0-18.0); MEAN CORPUSCULAR HEMOGLOBIN 31.7 pg (28-32); MEAN CORPUSCULAR HGB CONC 35.2 g/dL (31-35); PLATELET COUNT 294 x10e3/uL (140-360); RED BLOOD COUNT 4.51 x10e6/uL (4.3-5.7); RED CELL DISTRIBUTION WIDTH 13.9 % (11.7-14.4)
[2018-07-11 06:29] LABS: ALBUMIN 2.4 g/dL (3.5-5.0); ALBUMIN/GLOBULIN RATIO 0.5 (0.8-2.0); ANION GAP 14.7 mmol/L (8-16); CALCIUM 9.2 mg/dL (8.4-10.2); CREATININE, SERUM 1.8 mg/dL (0.72-1.25); POTASSIUM 3.7 mmol/L (3.5-5.1)
[2018-07-11] MEDS ORDERED: SODIUM CHLORIDE 0.9% 500ML 500 ML IV ONE (07:15)
--- NOTE | 2018-07-11 07:16 | NUR ---
received pt lying in bed with eyes open and TV on. denies pain and sob at this time. at bedside. call light within reach and instructed to call for assistance. NGT right nare to LWS.
[2018-07-11] MEDS: DOCUSATE SODIUM 100 MG CAP PO SCH ×2 (08:32→16:17)
[2018-07-11] MEDS: LISINOPRIL 10 MG TAB PO SCH (08:36)
[2018-07-11 11:24] LABS: EOSINOPHILS % (MANUAL) 2 % (0-7); LYMPHOCYTES % (MANUAL) 11 % (19-48); MONOCYTES % (MANUAL) 8 % (3.4-9.0); MYELOCYTES % (MANUAL) 1 % (0-0); NEUTROPHILS % (MANUAL) 73 % (40-74); PLATELET ESTIMATE ADEQUATE; PLATELET MORPHOLOGY COMMENT NORMAL; RBC MORPHOLOGY COMMENT NORMAL
[2018-07-11] MEDS: INSULIN LISPRO 100 UNIT/1 ML 3ML VIAL SQ SCH ×2 (11:51→17:16)
--- NOTE | 2018-07-11 15:53 | NUR ---
Nutrition Screen Note RD Recommendation for Physician: -Rec advancing to low fat/ ADA diet as medically appropriate Plan of Care: RD following, monitoring for tolerance and adequacy Nutrition reason for involvement: LOS Primary Diagnose(s): gallstones and jaundice PMH: DM, HTN, gallbladder disease, cholelithiasis. Ht: 70in Wt: 199.5lb BMI: 28.6kg/m2 IBW: 166lb RD Assessment: (07/11) Chart reviewed. Labs and meds reviewed. 77yo M, who was admitted for abdominal pain and indigestion. S/p ERCP and cholecystectomy on 07/08. NGT to suction with large amount of drainage. Abd remains distended. Flatus absent since surgery. Fleet enema was given. Visited pt in the room. 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 Pt denied any recent weight loss. Pt still complained of some abdominal pain and nausea. Currently NPO. Will continue to monitor and follow. Current Diet: NPO Malnutrition Evaluation (07/11) The patient does not meet criteria for a specified degree of malnutrition at this time. Will re-evaluate at follow-up as appropriate. Diet Education Needs Assessment: Diet education indicated, pt is not appropriate at this time. Nutrition Care Level: low Signed: Viola Beaver, MS, RD, LD
--- NOTE | 2018-07-11 17:00 | NUR ---
patient noted ambulating independently in hallway. will continue to encourage ambulation.
--- NOTE | 2018-07-11 18:56 | NUR ---
bedside rounds done with oncoming RN, patient lying in bed with TV on, eyes open and Resp even and unlabored. call light within reach.
--- NOTE | 2018-07-11 20:15 | NUR ---
Ambulated in the partida way.voided.assessment done.no resp.distress.no pain voiced.ng tube connected to LIWSuction.head of bed is elevated.bed locked and in lowest position.phone and call light within reach.instructed to call for assistance as needed.
[2018-07-12] VITALS (7 sets, daily range): BP systolic 150–176; BP diastolic 70–86
[2018-07-12] MEDS: INSULIN LISPRO 100 UNIT/1 ML 3ML VIAL SQ SCH ×5 (00:30→23:58)
--- NOTE | 2018-07-12 00:30 | NUR ---
Comfortably resting in the bed.stable condition.
[2018-07-12] MEDS: SODIUM CHLORIDE 0.9% 250ML IRRIG IR SCH ×6 (03:00→23:00)
--- NOTE | 2018-07-12 04:11 | NUR ---
Had small amount of watery stool and pass gas.
[2018-07-12] MEDS: CLONIDINE HCL 0.1 MG TAB PO PRN ×3 (04:51→23:57)
[2018-07-12] MEDS: SODIUM CHLORIDE 0.9% 1000ML 1,000 ML IV SCH ×2 (04:52→16:18)
--- NOTE | 2018-07-12 06:30 | NUR ---
Pt is off the unit for kub x ray.
--- NOTE | 2018-07-12 06:55 | NUR ---
Pt is back to the unit after kub x ray.Report given to the oncoming rn.walking rounds done.stable condition.
--- NOTE | 2018-07-12 07:05 | Diagnostic Imaging Report ---
EXAM: Abdomen 2 radiographs INDICATION: ^f/u ileus ^[id number] ^[id number] COMPARISON: Abdominal x-ray dated 07/10/2018 FINDINGS: See impression. IMPRESSION: Limited by body habitus. Nasogastric tube in place with tip projecting over the gastric cardia. Recommend advancement. Persistent gaseous distention of bowel loops, likely ileus. Large colonic stool burden. Surgical nita are again seen. Signed by: Dr. Elias Marquez MD on 07/12/2018 7:02 AM
[2018-07-12 07:07] LABS: HEMATOCRIT 41.9 % (38.2-49.6); HEMOGLOBIN 14.2 g/dL (14.0-18.0); MEAN CORPUSCULAR HEMOGLOBIN 30.1 pg (28-32); MEAN CORPUSCULAR HGB CONC 33.9 g/dL (31-35); PLATELET COUNT 318 x10e3/uL (140-360); RED BLOOD COUNT 4.71 x10e6/uL (4.3-5.7); RED CELL DISTRIBUTION WIDTH 13.9 % (11.7-14.4)
--- NOTE | 2018-07-12 07:15 | NUR ---
RECEIVED PATIENT AWAKE RESTING IN BED AT THIS TIME. NO SIGNS OF DISTRESS. BED LOW, WHEELS LOCKED, SIDE RAILS X2, CALL LIGHT IN REACH WILL CONTINUE TO MONITOR PATIENT.
[2018-07-12 07:23] LABS: ALBUMIN 2.3 g/dL (3.5-5.0); ALBUMIN/GLOBULIN RATIO 0.5 (0.8-2.0); ANION GAP 16.4 mmol/L (8-16); CALCIUM 8.8 mg/dL (8.4-10.2); CREATININE, SERUM 1.93 mg/dL (0.72-1.25); POTASSIUM 3.4 mmol/L (3.5-5.1)
[2018-07-12] MEDS: DOCUSATE SODIUM LIQD 100 MG/10 ML UDC NG SCH ×2 (09:19→18:33)
[2018-07-12] MEDS: LISINOPRIL 10 MG TAB PO SCH (09:19)
--- NOTE | 2018-07-12 09:20 | NUR ---
MORNING MEDS GIVEN THROUGH NGT. CLAMPED NGT AT THIS TIME.
--- NOTE | 2018-07-12 09:50 | NUR ---
NGT BACK TO LOW CONTINUOUS SUCTION AT THIS TIME.
--- NOTE | 2018-07-12 12:59 | NUR ---
PRN CLONIDINE GIVEN FOR BLOOD PRESSURE- 176/86. VERBAL ORDER FROM DR. BARRON TO CLAMP NGT AND CHECK RESIDUALS Q4 HOURS.
--- NOTE | 2018-07-12 18:33 | NUR ---
GASTRIC RESIDUAL CHECKED. 75 CC TAKEN OUT.
--- NOTE | 2018-07-12 19:20 | NUR ---
Report taken from morning rn.pt is lyeing in the bed.
--- NOTE | 2018-07-12 22:30 | NUR ---
Gastric residual checked and noted 60 cc.no resp.distress.no pain voiced.4 trochar sites dry.voided.bed locked and in lowest position.phone and call light within reach.educate to call for assistance as needed.
[2018-07-13] VITALS (7 sets, daily range): BP systolic 159–187; BP diastolic 79–90
--- NOTE | 2018-07-13 02:00 | NUR ---
Gasrtic residual 60 cc noted .
[2018-07-13] MEDS: SODIUM CHLORIDE 0.9% 1000ML 1,000 ML IV SCH ×3 (02:01→23:31)
--- NOTE | 2018-07-13 06:00 | NUR ---
Residual 65 cc noted.
[2018-07-13] MEDS: INSULIN LISPRO 100 UNIT/1 ML 3ML VIAL SQ SCH ×5 (06:22→20:45)
[2018-07-13 06:25] LABS: BASOPHILS # (AUTO) 0.1 (0.0-0.1); BASOPHILS % 0.7 % (0.0-1.0); EOSINOPHILS # (AUTO) 0.2 (0.0-0.4); EOSINOPHILS % 2.8 % (0.0-6.0); HEMATOCRIT 38.2 % (38.2-49.6); HEMOGLOBIN 12.5 g/dL (14.0-18.0); LYMPHOCYTES # (AUTO) 0.8 (1.0-3.2); LYMPHOCYTES % 9.6 % (18.0-39.1); MEAN CORPUSCULAR HEMOGLOBIN 29.7 pg (28-32); MEAN CORPUSCULAR HGB CONC 32.7 g/dL (31-35); MEAN CORPUSCULAR VOLUME 90.7 fL (81-99); MONOCYTES # (AUTO) 0.7 (0.2-0.8); MONOCYTES % 7.7 % (4.4-11.3); NEUTROPHILS # (AUTO) 6.7 (2.1-6.9); PLATELET COUNT 298 x10e3/uL (140-360); RED BLOOD COUNT 4.21 x10e6/uL (4.3-5.7); RED CELL DISTRIBUTION WIDTH 14.1 % (11.7-14.4)
[2018-07-13 06:50] LABS: ALBUMIN/GLOBULIN RATIO 0.5 (0.8-2.0); CALCIUM 8.4 mg/dL (8.4-10.2); CREATININE, SERUM 1.58 mg/dL (0.72-1.25)
--- NOTE | 2018-07-13 06:50 | NUR ---
Repot taken to the oncoming rn.walking rounds done.stable condition.
--- NOTE | 2018-07-13 07:10 | NUR ---
RECEIVED PATIENT AWAKE RESTING IN BED. NO SIGNS OF DISTRESS. BED LOW, WHEELS LOCKED, SIDE RAILS X2, CALL LIGHT IN REACH. WILL CONTINUE TO MONITOR.
--- NOTE | 2018-07-13 07:26 | NUR ---
NGT REMOVED BY DR. BARRON. PATIENT NOW ON CLEAR LIQUID DIET.
[2018-07-13] MEDS ORDERED: POTASSIUM CHLORIDE 20MEQ/100ML 200 ML IV ONE (07:30)
[2018-07-13] MEDS: LISINOPRIL 10 MG TAB PO SCH (08:40)
[2018-07-13] MEDS: DOCUSATE SODIUM LIQD 100 MG/10 ML UDC NG SCH ×2 (08:41→17:22)
[2018-07-13] MEDS: HYDRALAZINE HCL 20 MG/ML VIAL IV PRN (08:41)
--- NOTE | 2018-07-13 08:41 | NUR ---
PRN HYDRALAZINE GIVEN FOR MORNING BLOOD PRESSURE 187/90.
[2018-07-13] MEDS ORDERED: INSULIN LISPRO 100 UNIT/1 ML 3ML VIAL SQ SCH (11:30)
[2018-07-13] MEDS: CLONIDINE HCL 0.1 MG TAB PO PRN (12:21)
[2018-07-13] MEDS ORDERED: MINERAL OIL 132 ML BTL PR NR (14:30)
--- NOTE | 2018-07-13 15:07 | NUR ---
DR. CAST CAME BY AND MADE PATIENT NPO EXCEPT ICE CHIPS DUE TO ABDOMEN BEING DISTENDED AND WANTS TO ORDER ANOTHER KUB. FLEET ENEMA GIVEN TO PATIENT. WILL CONTINUE TO MONITOR.
--- NOTE | 2018-07-13 16:51 | Diagnostic Imaging Report ---
RADIOGRAPH(S) OF THE ABDOMEN AND PELVIS, 2 view(s) HISTORY: Ileus, abdominal pain, status post gallbladder removal COMPARISON: Abdominal radiographs July 12, 2018 FINDINGS: Soft tissue attenuation partially limits sensitivity of the exam. Interval removal of the nasogastric/orogastric tube. Slightly decreased gaseous distention of numerous loops of bowel. Metallic clips in the right upper quadrant of the abdomen are compatible with prior cholecystectomy. Additional metallic skin nita. The bones are partially obscured by stool and overlying bowel gas. IMPRESSION: Findings compatible with improving ileus. Signed by: Dr. José Miguel Jones D.O., M.M.M. on 07/13/2018 4:48 PM
--- NOTE | 2018-07-13 21:10 | NUR ---
Ambulated in the partida way.Assessment done.aaox3.no rep.distress.no pain voiced .having ice chips.abdomen is distended.bed locked and in lowest position.phone and call light within reach.informed to call for assistance as needed.
[2018-07-14] VITALS (8 sets, daily range): BP systolic 159–184; BP diastolic 77–87
[2018-07-14] MEDS: SODIUM CHLORIDE 0.9% 1000ML 1,000 ML IV SCH ×3 (05:39→22:58)
[2018-07-14 06:01] LABS: ALBUMIN 1.9 g/dL (3.5-5.0); ALBUMIN/GLOBULIN RATIO 0.5 (0.8-2.0); CREATININE, SERUM 1.44 mg/dL (0.72-1.25)
--- NOTE | 2018-07-14 06:50 | NUR ---
Report given to the on coming rn.walking rounds done.stable condition.
[2018-07-14] MEDS: LISINOPRIL 10 MG TAB PO SCH (08:43)
[2018-07-14] MEDS: DOCUSATE SODIUM LIQD 100 MG/10 ML UDC NG SCH ×2 (08:43→16:32)
[2018-07-14] MEDS: INSULIN LISPRO 100 UNIT/1 ML 3ML VIAL SQ SCH ×3 (08:43→16:35)
[2018-07-14] MEDS: CLONIDINE HCL 0.1 MG TAB PO PRN (12:39)
--- NOTE | 2018-07-14 13:03 | NUR ---
IMM EXPLAINED TO PT, SIGNED BY PT AND PLACED IN CHART COPY OF IMM TO PT AND PLACED IN CARE TRANSITIONS FOLDER
[2018-07-14] MEDS: HYDRALAZINE HCL 20 MG/ML VIAL IV PRN (14:25)
--- NOTE | 2018-07-14 20:35 | NUR ---
IV INFILTRATED TO THE RIGHT AC, IV REMOVED WITH TIP INTACT. IV #20 GAUGE INSERTED TO THE LEFT HAND PER CHARGE NURSE, PATIENT TOLERATED PROCEDURE WELL. ABDOMEN LARGE AND DISTENDED, BOWEL SOUNDS ACTIVE.
[2018-07-15] VITALS (8 sets, daily range): BP systolic 161–185; BP diastolic 78–85
[2018-07-15] MEDS: HYDROCODONE/APAP 5MG-325MG TAB PO PRN (02:16)
--- NOTE | 2018-07-15 02:17 | NUR ---
PATIENT C/O PAIN TO THE ABDOMEN WITH PAIN SCORE #8, MEDICATED WITH NORCO 1TAB ORDERED. CALL LIGHT WITHIN EASY REACH, INSTRUCTED TO CALL FOR ASSISTANCE NEEDED.
--- NOTE | 2018-07-15 03:56 | NUR ---
WALKING ROUNDS MADE, PATIENT RESTING COMFORTABLY IN BED, NO RESPIRATORY DISTRESS OBSERVED. CALL LIGHT WITHIN EASY REACH, HIS AT THE BEDSIDE.
[2018-07-15 06:08] LABS: ALBUMIN 1.8 g/dL (3.5-5.0); ALBUMIN/GLOBULIN RATIO 0.5 (0.8-2.0); ANION GAP 11.5 mmol/L (8-16); CALCIUM 7.9 mg/dL (8.4-10.2); CREATININE, SERUM 1.46 mg/dL (0.72-1.25); POTASSIUM 3.5 mmol/L (3.5-5.1)
[2018-07-15] MEDS: DOCUSATE SODIUM LIQD 100 MG/10 ML UDC NG SCH ×2 (08:19→16:27)
[2018-07-15] MEDS: INSULIN LISPRO 100 UNIT/1 ML 3ML VIAL SQ SCH ×4 (08:38→22:02)
[2018-07-15] MEDS: LISINOPRIL 10 MG TAB PO SCH (08:39)
[2018-07-15] MEDS: CLONIDINE HCL 0.1 MG TAB PO PRN ×2 (08:39→16:30)
[2018-07-15] MEDS: SODIUM CHLORIDE 0.9% 1000ML 1,000 ML IV SCH (10:00)
--- NOTE | 2018-07-15 20:06 | NUR ---
PATIENT IN STABLE CONDITION, NO SIGNS OF DISTRESS OBSERVED. HE IS AMBULATING IN THE [place]ONG AT THIS TIME.
[2018-07-16] VITALS (7 sets, daily range): BP systolic 140–175; BP diastolic 73–161
[2018-07-16] MEDS: HYDROCODONE/APAP 5MG-325MG TAB PO PRN (01:37)
--- NOTE | 2018-07-16 01:37 | NUR ---
REASSESSED PATIENT'S TEMPERATURE AT 99.9. GAVE PATIENT NORCO 5MG NEEDED FOR PAIN. PATIENT USED INCENTIVE SPIROMETER 5 TIMES, CALL LIGHT WITHIN EASY REACH, FAMILY MEMBER AT BEDSIDE,WILL CONTINUE TO MONITOR.
--- NOTE | 2018-07-16 03:51 | NUR ---
PATIENT IS RESTING COMFORTABLY UPON MAKING ROUNDS. FAMILY MEMBER AT BEDSIDE, NO DISTRESS OBSERVED, CALL LIGHT IN REACH, AND WILL CONTINUE TO MONITOR.
[2018-07-16] MEDS ORDERED: MINERAL OIL 132 ML BTL PR ONE (05:30)
--- NOTE | 2018-07-16 06:23 | NUR ---
PATIENT ESCORTED VIA WHEELCHAIR FOR PROCEDURE
[2018-07-16 07:20] LABS: ALBUMIN 1.8 g/dL (3.5-5.0)
[2018-07-16 07:26] LABS: BILIRUBIN,DIRECT 10.9 mg/dL (0.0-0.5)
--- NOTE | 2018-07-16 07:50 | Diagnostic Imaging Report ---
KUB-2 views HISTORY: Ileus. COMPARISON: KUB 07/13/2018. FINDINGS: Decreased gaseous distention of small bowel loops. There is air seen throughout the small and large bowel. No evidence of bowel obstruction. Status post cholecystectomy. Additional metallic skin nita. There is a clip in the left lower quadrant. Wedge compression deformity of the T11 vertebral body is unchanged. Trace right pleural effusion, partially visualized. IMPRESSION: Decreased ileus without evidence of bowel obstruction. Signed by: Dr. Amanda Guzman MD on 07/16/2018 7:47 AM
--- NOTE | 2018-07-16 07:50 | NUR ---
RECEIVED PATIENT AWAKE IN BED NO SIGNS OF DISTRESS. AT BEDSIDE. BED LOW, WHEELS LOCKED, SIDE RAILS X2, CALL LIGHT IN REACH WILL CONTINUE TO MONITOR.
[2018-07-16] MEDS: LISINOPRIL 10 MG TAB PO SCH (08:36)
[2018-07-16] MEDS: DOCUSATE SODIUM LIQD 100 MG/10 ML UDC NG SCH (08:36)
[2018-07-16] MEDS: INSULIN LISPRO 100 UNIT/1 ML 3ML VIAL SQ SCH ×4 (08:38→21:00)
[2018-07-16] MEDS: CLONIDINE HCL 0.1 MG TAB PO PRN (11:58)
--- NOTE | 2018-07-16 12:47 | NUR ---
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
[2018-07-16] MEDS: SODIUM CHLORIDE 0.9% 1000ML 1,000 ML IV SCH (16:12)
[2018-07-16] MEDS ORDERED: DOCUSATE SODIUM LIQD 100 MG/10 ML UDC PO SCH (17:00)
[2018-07-16] MEDS: DOCUSATE SODIUM 100 MG CAP PO SCH (17:11)
--- NOTE | 2018-07-16 19:24 | NUR ---
PATIENT RESTING COMFORTABLY IN BED WITHOUT ACUTE DISTRESS, HE DENIES ABDOMINAL PAIN. BANDAGES DRY AND INTACT TO THE ABDOMEN, CALL LIGHT WITHIN EASY REACH, HE'S INSTRUCTED TO CALL FOR ASSISTANCE NEEDED.
[2018-07-17] VITALS (7 sets, daily range): BP systolic 153–180; BP diastolic 79–89
[2018-07-17] MEDS: HYDROCODONE/APAP 5MG-325MG TAB PO PRN (00:15)
--- NOTE | 2018-07-17 00:15 | NUR ---
TEMPERATURE 100.1, PATIENT ENCOURAGED TO USE THE INCENTIVE SPIROMETRY. HE ALSO REQUESTED NORCO 1TAB FOR ABDOMINAL PAIN.
--- NOTE | 2018-07-17 04:20 | NUR ---
WALKING ROUND MADE, PATIENT OBSERVED SOUNDLY ASLEEP WITHOUT RESPIRATORY DISTRESS. CALL LIGHT WITHIN EASY REACH.
[2018-07-17] MEDS ORDERED: SOD PHOSPHATE/SOD BIPHOSPHATE ENEMA 132 ML BTL PR ONE (06:30)
[2018-07-17 07:06] LABS: BASOPHILS % 0.4 % (0.0-1.0); EOSINOPHILS # (AUTO) 0.5 (0.0-0.4); EOSINOPHILS % 5.7 % (0.0-6.0); HEMATOCRIT 36.3 % (38.2-49.6); HEMOGLOBIN 11.9 g/dL (14.0-18.0); LYMPHOCYTES % 12.5 % (18.0-39.1); MEAN CORPUSCULAR HEMOGLOBIN 29.6 pg (28-32); MEAN CORPUSCULAR HGB CONC 32.8 g/dL (31-35); MEAN CORPUSCULAR VOLUME 90.3 fL (81-99); MONOCYTES # (AUTO) 0.6 (0.2-0.8); MONOCYTES % 7.2 % (4.4-11.3); NEUTROPHILS # (AUTO) 5.4 (2.1-6.9); NEUTROPHILS % 66.8 % (38.7-80.0); PLATELET COUNT 262 x10e3/uL (140-360); RED BLOOD COUNT 4.02 x10e6/uL (4.3-5.7); RED CELL DISTRIBUTION WIDTH 14.1 % (11.7-14.4)
--- NOTE | 2018-07-17 07:22 | NUR ---
RECEIVED PATIENT DURING SHIFT CHANGE. PATIENT IN RESTROOM AT THIS TIME. EDUCATED PATIENT TO CALL NURSE FOR ASSISTANCE. AT BEDSIDE. WILL CONTINUE TO MONITOR PATIENT.
[2018-07-17 07:23] LABS: ALBUMIN 1.8 g/dL (3.5-5.0); ALBUMIN/GLOBULIN RATIO 0.5 (0.8-2.0); ANION GAP 13.1 mmol/L (8-16); CALCIUM 7.9 mg/dL (8.4-10.2); CREATININE, SERUM 1.39 mg/dL (0.72-1.25); POTASSIUM 3.1 mmol/L (3.5-5.1)
[2018-07-17] MEDS: DOCUSATE SODIUM 100 MG CAP PO SCH ×2 (09:17→16:55)
[2018-07-17] MEDS: LISINOPRIL 10 MG TAB PO SCH (09:17)
[2018-07-17] MEDS: POLYETHYLENE GLYCOL 3350 17 GM PACK PO SCH ×2 (09:17→16:55)
[2018-07-17] MEDS: SODIUM CHLORIDE 0.9% 1000ML 1,000 ML IV SCH ×2 (09:18→18:52)
[2018-07-17] MEDS: CLONIDINE HCL 0.1 MG TAB PO PRN ×2 (09:18→19:59)
[2018-07-17] MEDS: INSULIN LISPRO 100 UNIT/1 ML 3ML VIAL SQ SCH ×4 (09:19→20:00)
[2018-07-17] MEDS ORDERED: POTASSIUM CHLORIDE 20MEQ/100ML 200 ML IV ONE (12:00)
--- NOTE | 2018-07-17 12:15 | NUR ---
SPOKE WITH DR. WATERS REGARDING POTASSIUM 3.1. ORDER FOR 40 MEQ POTASSIUM IV ONCE.
--- NOTE | 2018-07-17 12:57 | NUR ---
NEW IV STARTED. LEFT FA 20 GAUGE.
[2018-07-17] MEDS: METOCLOPRAMIDE HCL 10 MG/2ML VIAL IV SCH ×3 (13:06→23:20)
[2018-07-17] MEDS ORDERED: MINERAL OIL 132 ML BTL PR ONE (15:00)
--- NOTE | 2018-07-17 16:14 | NUR ---
PAGED DR. WATERS REGARDING TEMPERATURE 101.5. ENCOURAGED PATIENT TO USE I.S.
[2018-07-17] MEDS ORDERED: ACETAMINOPHEN 325 MG TAB PO ONE (17:45)
--- NOTE | 2018-07-17 17:50 | NUR ---
SPOKE WITH DR. WATERS. NEW ORDER FOR TYLENOL PO AND TO START CEFEPIME 1G IV Q8.
[2018-07-17] MEDS: CEFEPIME 1GM/NS 0.9% 50 ML 50 ML IV SCH (18:56)
[2018-07-17] MEDS ORDERED: CITRATE OF MAGNESIA 300ML BOTTLE PO NR (19:30)
[2018-07-18] VITALS (8 sets, daily range): BP systolic 156–174; BP diastolic 69–91
[2018-07-18] MEDS: CEFEPIME 1GM/NS 0.9% 50 ML 50 ML IV SCH ×3 (02:00→16:45)
--- NOTE | 2018-07-18 04:56 | NUR ---
DR. WATERS DOING ROUNDS AT THIS TIME. INFORMED MD OF PT TEMP 100.0. NEW ORDER RCV FOR TYLENOL 650 Q4H PRN AND TO GIVE 1 MAGNESIUM CITRATE AT 0700.
[2018-07-18] MEDS ORDERED: ACETAMINOPHEN 325 MG TAB PO PRN (05:00)
[2018-07-18] MEDS: METOCLOPRAMIDE HCL 10 MG/2ML VIAL IV SCH ×3 (05:09→16:45)
[2018-07-18 05:58] LABS: ALBUMIN 1.8 g/dL (3.5-5.0); ALBUMIN/GLOBULIN RATIO 0.5 (0.8-2.0); ANION GAP 11.5 mmol/L (8-16); CREATININE, SERUM 1.46 mg/dL (0.72-1.25); POTASSIUM 3.5 mmol/L (3.5-5.1)
[2018-07-18] MEDS ORDERED: CITRATE OF MAGNESIA 300ML BOTTLE PO ONE (07:00)
[2018-07-18] MEDS: SODIUM CHLORIDE 0.9% 1000ML 1,000 ML IV SCH (08:12)
[2018-07-18] MEDS: DOCUSATE SODIUM 100 MG CAP PO SCH ×2 (09:00→16:34)
[2018-07-18] MEDS: POLYETHYLENE GLYCOL 3350 17 GM PACK PO SCH ×2 (09:00→16:45)
[2018-07-18] MEDS: INSULIN LISPRO 100 UNIT/1 ML 3ML VIAL SQ SCH ×4 (09:08→21:14)
[2018-07-18] MEDS: LISINOPRIL 10 MG TAB PO SCH (09:09)
[2018-07-18] MEDS: CLONIDINE HCL 0.1 MG TAB PO PRN (09:09)
[2018-07-18] MEDS ORDERED: ONDANSETRON HCL 4 MG ORAL DISINTEGRATING TAB PO PRN (13:45)
--- NOTE | 2018-07-18 15:37 | NUR ---
Nutrition Intervention Note RD Recommendation(s) for Physician: -Rec advancing to GI soft/ ADA diet as medically appropriate -Rec Glucerna BID to increase protein-calorie intake Plan of Care: RD following, monitoring for tolerance and adequacy, ONS rec Nutrition reason for involvement: Follow up RD Assessment (07/18) Pt was discussed during AM rounds. Pt tolerated full liquid diet but abdominal distention has increased, per RN. CT abd/pel on 07/16 showed decreased ileus without evidence of SBO. Visited pt in the room. Pt complained of bloating but denied any nausea or vomiting. NGT was discontinued. Full liquid diet x3 days. Pt had a BM today after Mg Citrate was given. Currently on reglan and IVF. Pt was drinking 1 protein shake a day and would like some while he is here. Order was placed. Will continue to monitor and follow. (07/11) Chart reviewed. Labs and meds reviewed. 77yo M, who was admitted for abdominal pain and indigestion. S/p ERCP and cholecystectomy on 07/08. NGT to suction with large amount of drainage. Abd remains distended. Flatus absent since surgery. Fleet enema was given. Visited pt in the room. 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 Pt denied any recent weight loss. Pt still complained of some abdominal pain and nausea. Currently NPO. Will continue to monitor and follow. Principal Problems/Diagnoses: gallstones and jaundice PMH: DM, HTN, gallbladder disease, cholelithiasis. GI: abdomen round, firm, distended, flatus present Skin: intact Labs: (07/18) Creatinine 1.46 H, glucose 220 290 H, Ca 2 L, bilirubin 12.6 H, AST 65 H, ALT 69 H Meds: reglan, insulin, abx, lisinopril Ht: 70in Wt: 199.5lb BMI: 28.6kg/m2 IBW: 166lb Malnutrition Evaluation (07/11) The patient does not meet criteria for a specified degree of malnutrition at this time. Will re-evaluate at follow-up as appropriate. Nutrition Prescription (Diet Order): full liquid Estimated Nutritional Needs: Calories: 1638 1820kcal(18-20kcal/kg/d) Weight used: actual BW Protein: 91 137g (1-1.5g/kg/d) Weight used: actual BW Diet Adequacy: Not meeting calorie needs, Not meeting protein needs on full liquid Diet Education Needs Assessment: Diet education indicated, but patient not appropriate for education at this time. Nutrition Care Level: mod Nutrition Diagnosis: Inadequate oral intake related to ileus as evidenced by full liquid diet x3 days. Goal: Patient will meet 75-100% of estimated needs by follow up Progress: Not progressing Interventions: Modified diet, Commercial beverage, Prescription medications Monitoring/Evaluation: Total energy intake, Total protein intake, Modified diet, Liquid supplement, Weight change Signed: Viola Beaver MS, RD, LD
--- NOTE | 2018-07-18 17:38 | NUR ---
DR. SANDERS MAKING ROUNDS STATES PT CAN ADVANCE TO DIABETIC DIET TOMORROW FOR BREAKFAST.
--- NOTE | 2018-07-18 19:00 | NUR ---
report received from outgoing nurse. patient is resting in bed comfortably. denies pain or discomfort. currently receiving IV fluids. is by the bedside. bed is in lowest position. will continue to monitor patient.
[2018-07-19] MEDS: METOCLOPRAMIDE HCL 10 MG/2ML VIAL IV SCH ×3 (01:20→12:00)
[2018-07-19] MEDS: CEFEPIME 1GM/NS 0.9% 50 ML 50 ML IV SCH ×2 (01:20→10:37)
[2018-07-19 01:37] VITALS: BP 158/77
[2018-07-19 05:30] VITALS: BP 160/81
[2018-07-19 05:45] LABS: ALBUMIN 1.7 g/dL (3.5-5.0); ALBUMIN/GLOBULIN RATIO 0.5 (0.8-2.0); ANION GAP 12.2 mmol/L (8-16); CALCIUM 7.6 mg/dL (8.4-10.2); CREATININE, SERUM 1.4 mg/dL (0.72-1.25); POTASSIUM 3.2 mmol/L (3.5-5.1)
[2018-07-19] MEDS ORDERED: FUROSEMIDE INJ 10 MG/ML 2 ML VIAL IV ONE (06:15)
--- NOTE | 2018-07-19 06:15 | NUR ---
attending MD in building rounding on patient. received order to D/C fluids due to fluid retention in lower extremities. also received new order for one time dose of 20mg of lasix. will continue to monitor patient.
--- NOTE | 2018-07-19 06:50 | NUR ---
MET PATIENT FOR BEDSIDE REPORT, PATIENT ALERT ALERT AND ORIENTED TO PERSON, PLACE, TIME, AND SITUATION, PATIENT DENIED PAIN, PATIENT HAS SLIGHT EDEMA TO HIS LOWER EXTREMITIES +1, PATIENT SHOWS NO SIGNS OF DISTRESS.
--- NOTE | 2018-07-19 07:15 | NUR ---
report given to day nurse. patient is resting comfortably in bed. bed is in lowest position and call cantrell is within reach.
[2018-07-19 07:31] VITALS: BP 168/84
[2018-07-19] MEDS: DOCUSATE SODIUM 100 MG CAP PO SCH (09:00)
[2018-07-19] MEDS: POLYETHYLENE GLYCOL 3350 17 GM PACK PO SCH (09:00)
--- NOTE | 2018-07-19 09:43 | Diagnostic Imaging Report ---
EXAM: Abdomen 2 Views INDICATION: ileus COMPARISON: KUB 07/16/2018 FINDINGS: No significant of stool in the colon. No dilated loops of small bowel. Several loops of air-filled loops of small bowel and colon without distention. No air-fluid levels. No renal calculi. No abnormal soft tissue masses. Right upper quadrant cholecystectomy clips. Skin nita overlying the right upper quadrant and right lower quadrant. Moderate degenerative changes in the lumbar spine and pelvis. IMPRESSION: Several air-filled loops of small bowel and colon without distention. No definite evidence of bowel obstruction or ileus. Signed by: Dr. Sp Palomo M.D. on 07/19/2018 9:39 AM
--- NOTE | 2018-07-19 09:47 | Progress Note ---
DATE: CONTINUATION: The patient's last laboratory values, creatinine 1.4. Urine bilirubin of 10.01. ASSESSMENT: 1. Gallstone cholecystitis. 2. Ileus. 3. Chronic kidney disease 3. 4. Elevated liver function tests. 5. Hyperbilirubinemia. 6. Diabetes. 7. Hypertension. PLAN: Give the patient Lasix 20 mg IV now, cut off fluids and keep it KVO. Fluid balance will be maintained and also labs in the morning will be done. The patient is encouraged to walk to avoid ileus and also incentive spirometry by the bedside. Further recommendation and clinical course, the patient's labs will be monitored on a daily basis and continue on his regular diabetic and CV medications at this time. MD LILIAN Urrutia/MODL /[id number]
[2018-07-19] MEDS: ALBUTEROL SULFATE HFA 8GM INHALATION AEROSOL INH PRN (10:06)
[2018-07-19] MEDS: INSULIN LISPRO 100 UNIT/1 ML 3ML VIAL SQ SCH ×2 (10:34→11:46)
[2018-07-19] MEDS: LISINOPRIL 10 MG TAB PO SCH (10:36)
[2018-07-19 10:51] VITALS: BP 168/84
[2018-07-19] MEDS: CLONIDINE HCL 0.1 MG TAB PO PRN (11:41)
[2018-07-19 12:08] VITALS: BP 172/79
--- NOTE | 2018-07-21 08:40 | Progress Note ---
DATE: SUBJECTIVE: The patient is status post laparoscopic cholecystectomy secondary to gallstone pancreatitis. The patient is currently short of breath. No chest pains. No nausea or vomiting. Running a fever, last night had a temperature. The patient has been taking a regular diet since yesterday. Has complaints of some distention and shortness of breath. OBJECTIVE: VITAL SIGNS: Temperature is 100.0, T-max is 100.2, pulse of 105, respirations of 20, blood pressure is 160/80, pulse oximetry of 94% on room air. HEENT: Normocephalic, atraumatic. Jaundice present. CVS: S1 and S2 normal. Regular rate and rhythm. ABDOMEN: Distended. EXTREMITIES: No clubbing. No cyanosis. Positive for edema of 2+. LABORATORY VALUES: Yesterday's white count was 8.11, hemoglobin 11.9, hematocrit of 36.3. Chemistry; sodium of 136, potassium of 3.2, BUN of 12, creatinine of 1.40. Total bilirubin was 10.1 yesterday. ASSESSMENT: DICTATION ENDS HERE MD LILIAN Urrutia/STARR /[id number]
== END 2018-07-19 14:10 | disposition home or self-care (01) | DRG 418 ==
LOC: ER 07:22 → ERHOLD 07:27 → MED/SURG 10:49
PROVIDERS: ADMIT Internal Medicine; ATTEND Internal Medicine
PROC: 0FC98ZZ Extirpation of Matter from Common Bile Duct, Via Natural or Artificial Opening Endoscopic (ICD-10-PCS; 2018-07-07)
PROC: BF101ZZ Fluoroscopy of Bile Ducts using Low Osmolar Contrast (ICD-10-PCS; 2018-07-07)
PROC: 0FT44ZZ Resection of Gallbladder, Percutaneous Endoscopic Approach (ICD-10-PCS; principal; 2018-07-08 08:52)
PROC: 0D9670Z Drainage of Stomach with Drainage Device, Via Natural or Artificial Opening (ICD-10-PCS; 2018-07-10)
DX: K80.62 Calculus of gallbladder and bile duct with acute cholecystitis without obstruction (principal); K56.7 Ileus, unspecified; E11.22 Type 2 diabetes mellitus with diabetic chronic kidney disease; I12.9 Hypertensive chronic kidney disease with stage 1 through stage 4 chronic kidney disease, or unspecified chronic kidney disease; N18.3 Chronic kidney disease, stage 3 (moderate); Z79.84 Long term (current) use of oral hypoglycemic drugs
CPT/HCPCS: 36415; 43260; 74018; 74019; 74176; 74177; 74181; 80053; 80061; 80076; 81001; 82248; 82948; 83690; 83735; 84100; 85007; 85025; 85027; 88304; 94664; 96361; 96367; 96372; 96375; 99284; J0360; J0690; J0692; J1100; J1940; J2001; J2270; J2405; J2765; J3480; J7030; J7040; Q9967

== ENCOUNTER 2018-08-06 13:32 | Inpatient (IN) | payer MEDICARE ==
[~2018-08-06] VITALS: Ht 177.8 cm; Wt 78.0 kg
[~2018-08-06 13:32] MED LIST changes: +LISINOPRIL10 MG PO; +VENTOLIN HFA18 GM
[2018-08-06] MEDS ORDERED: CITRATE OF MAGNESIA 300ML BOTTLE PO NR (13:45)
[2018-08-06] MEDS ORDERED: CITRATE OF MAGNESIA 300ML BOTTLE PO ONE (13:45)
[2018-08-06 14:01] LABS: BASOPHILS # (AUTO) 0.1 (0.0-0.1); BASOPHILS % 0.4 % (0.0-1.0); EOSINOPHILS # (AUTO) 0.1 (0.0-0.4); EOSINOPHILS % 0.4 % (0.0-6.0); HEMATOCRIT 30.5 % (38.2-49.6); HEMOGLOBIN 10.7 g/dL (14.0-18.0); LYMPHOCYTES # (AUTO) 2.3 (1.0-3.2); LYMPHOCYTES % 19.4 % (18.0-39.1); MEAN CORPUSCULAR HEMOGLOBIN 29.5 pg (28-32); MEAN CORPUSCULAR HGB CONC 35.1 g/dL (31-35); MONOCYTES # (AUTO) 0.7 (0.2-0.8); MONOCYTES % 5.6 % (4.4-11.3); NEUTROPHILS # (AUTO) 8.7 (2.1-6.9); NEUTROPHILS % 72.9 % (38.7-80.0); PLATELET COUNT 526 x10e3/uL (140-360); RED BLOOD COUNT 3.63 x10e6/uL (4.3-5.7); RED CELL DISTRIBUTION WIDTH 13.8 % (11.7-14.4)
[2018-08-06] MEDS ORDERED: DIATRIZOATE MEGL/DIATRIZOA SOD 30 ML BTL PO ONE (14:03)
[2018-08-06 14:25] LABS: ALBUMIN 2.1 g/dL (3.5-5.0); ALBUMIN/GLOBULIN RATIO 0.4 (0.8-2.0); ANION GAP 14.4 mmol/L (8-16); CALCIUM 9.5 mg/dL (8.4-10.2); CREATININE, SERUM 2.91 mg/dL (0.72-1.25); POTASSIUM 4.4 mmol/L (3.5-5.1)
--- NOTE | 2018-08-06 14:40 | Diagnostic Imaging Report ---
Exam: Abdominal film Clinical History: Abdominal distention Comparison: 07/19/2018 DISCUSSION: Interval removal of right upper quadrant skin nita and right lower quadrant skin nita. Surgical clips are again noted in the right upper quadrant. The bowel gas pattern shows no dilated, air-filled loops of bowel. Gas within the stomach, small bowel, and colon are again noted. No dee pneumoperitoneum. Regional skeletal structures are intact with degenerative disc changes of the lumbar spine, degenerative arthrosis of the hips. Compression deformity of T11 unchanged.. No abnormal calcifications. IMPRESSION: Nonobstructive bowel gas pattern. Signed by: Dr. Rolando Gaona M.D. on 08/06/2018 2:37 PM
--- NOTE | 2018-08-06 16:31 | Diagnostic Imaging Report ---
EXAM: CT Abdomen and Pelvis WITHOUT contrast INDICATION: ^abd pain/ileus ^[id number] ^[id number] COMPARISON: KUB, 08/06/2018; CT abdomen/pelvis, 07/10/2018 TECHNIQUE: Abdomen and pelvis were scanned utilizing a multidetector helical scanner from the lung base to the pubic symphysis without administration of IV contrast. Absence of intravenous contrast decreases sensitivity for detection of focal lesions and vascular pathology. Coronal and sagittal reformations were obtained. Routine protocol was performed. Dose modulation, iterative reconstruction, and/or weight based adjustment of the mA/kV was utilized to reduce the radiation dose to as low as reasonably achievable. IV CONTRAST: None. ORAL CONTRAST: Gastrografin RADIATION DOSE: Total DLP: 600.48 mGy*cm Estimated effective dose: (DLP x 0.015 x size factor) mSv COMPLICATIONS: None FINDINGS: LINES and TUBES: None. LOWER THORAX: Lung bases are clear. Small right pleural effusion has resolved since last exam. There is mild linear atelectasis in the right lower lobe. Heart size normal. HEPATOBILIARY: No focal hepatic lesions. No biliary ductal dilation. GALLBLADDER: Surgical absence of the gallbladder with cholecystectomy clips. SPLEEN: No splenomegaly. PANCREAS: No focal masses or ductal dilatation. ADRENALS: No adrenal nodules KIDNEYS/URETERS: No hydronephrosis. Stable small cyst anterior right kidney. 3 mm nonobstructing intrarenal calculus on the right. GI TRACT: No abnormal distention, wall thickening, or evidence of bowel obstruction. Previously described small bowel distention has resolved. Gastrografin has traverse much of the small bowel but has not reached the colon. Evaluation of bowel and visualization of the appendix is inhibited by ascites. PELVIC ORGANS/BLADDER: Urinary bladder is not well distended. No obvious abnormality seen. Ascites fluid is pooled in the pelvis. LYMPH NODES: No obvious dominant lymph node mass is seen in the abdomen, retroperitoneum or pelvis. Visualization might be inhibited by the large ascites collection. VESSELS: The abdominal aorta is atherosclerotic with calcified plaques. No aneurysm. PERITONEUM / RETROPERITONEUM: A large volume of ascites has collected since the previous CT. Fluid density of 9 Hounsfield units suggest simple fluid. No pneumoperitoneum. Previously noted minimal pneumoperitoneum has resolved. BONES: No acute or suspicious bony lesion. Stable compression deformity of T11. SOFT TISSUES: Superficial surrounding soft tissue reveals surgical clips in the midline musculature of the upper abdomen. Skin nita have been removed since last exam. A small umbilical hernia is again noted. Bilateral fat-containing inguinal hernias are again seen. IMPRESSION: 1. Large volume of ascites has developed since the previous CT. Minimal pneumoperitoneum has resolved. 2. Dilatation of small bowel has resolved since last exam. Staff: Shanna Signed by: Dr. Joaquin Otero M.D. on 08/06/2018 4:28 PM
[2018-08-06 17:16] LABS: INR 1.6; PROTHROMBIN TIME 19.7 seconds (11.9-14.5)
--- NOTE | 2018-08-06 18:00 | NUR ---
6 liters removed during paracentesis.
[2018-08-06 19:40] LABS: BODY FLUID APPEARANCE CLOUDY; BODY FLUID COLOR GREEN; BODY FLUID TYPE PERITONEAL
[2018-08-06 19:41] LABS: RBC,BODY FLUID 645 cells/uL; WBC,BODY FLUID 37 cells/uL
[2018-08-06 19:49] LABS: GLUCOSE,BODY FLUID 252 mg/dL
[2018-08-06 19:57] LABS: AMYLASE,BODY FLUID 18
[2018-08-06 20:12] LABS: LYMPHOCYTES,BODY FLUID 10 %; MONO/MACROPHG,BODY FLUID 74 %
[2018-08-06 20:13] LABS: OTHER CELLS,BODY FLUID 16 %
[2018-08-06] MEDS ORDERED: DEXTROSE 50% SYRINGE 50 ML IV PRN (20:15)
[2018-08-06] MEDS: CEFTRIAXONE SOD 1 GM/NS 50 ML 50 ML IV SCH (20:15)
[2018-08-06] MEDS: SODIUM CHLORIDE 0.9% 1000ML 1,000 ML IV SCH ×2 (20:22→21:57)
[2018-08-06 21:00] VITALS: BP 142/66
--- NOTE | 2018-08-06 21:00 | NUR ---
patient is a new admit that arrived stretcher. patient is awake and talking. patient denies any pain or discomfort. is by the bedside. patient has been assisted into the bed. bed is in the lowest position and call cantrell is within reach. will continue to monitor patient.
[2018-08-06 21:24] VITALS: BP 142/66
[2018-08-06 21:36] VITALS: BP 142/66
[2018-08-06] MEDS: INSULIN LISPRO 100 UNIT/1 ML 3ML VIAL SQ SCH (22:08)
[2018-08-06 23:16] LABS: NEUTROPHILS,BODY FLUID 0 %
[2018-08-06 23:48] VITALS: BP 121/57
[2018-08-07 04:30] VITALS: BP 168/57
[2018-08-07 05:50] LABS: BASOPHILS % 0.4 % (0.0-1.0); EOSINOPHILS # (AUTO) 0.1 (0.0-0.4); EOSINOPHILS % 0.5 % (0.0-6.0); HEMATOCRIT 26.1 % (38.2-49.6); HEMOGLOBIN 9.2 g/dL (14.0-18.0); LYMPHOCYTES # (AUTO) 2.1 (1.0-3.2); LYMPHOCYTES % 20.1 % (18.0-39.1); MEAN CORPUSCULAR HEMOGLOBIN 30.2 pg (28-32); MEAN CORPUSCULAR HGB CONC 35.2 g/dL (31-35); MEAN CORPUSCULAR VOLUME 85.6 fL (81-99); MONOCYTES # (AUTO) 0.7 (0.2-0.8); NEUTROPHILS # (AUTO) 7.4 (2.1-6.9); NEUTROPHILS % 70.7 % (38.7-80.0); PLATELET COUNT 372 x10e3/uL (140-360); RED BLOOD COUNT 3.05 x10e6/uL (4.3-5.7); RED CELL DISTRIBUTION WIDTH 13.9 % (11.7-14.4)
[2018-08-07 06:09] LABS: ALBUMIN 1.9 g/dL (3.5-5.0); ALBUMIN/GLOBULIN RATIO 0.5 (0.8-2.0); ANION GAP 12.8 mmol/L (8-16); CALCIUM 8.4 mg/dL (8.4-10.2); CREATININE, SERUM 2.99 mg/dL (0.72-1.25); MAGNESIUM 1.8 MG/DL (1.3-2.1); PHOSPHORUS 4.6 MG/DL (2.3-4.7); POTASSIUM 4.8 mmol/L (3.5-5.1)
--- NOTE | 2018-08-07 06:35 | NUR ---
consulted physicians office notified of consultation. awaiting call back from physician.
--- NOTE | 2018-08-07 06:44 | NUR ---
report given to day nurse. patient is resting comfortably in bed. bed is in lowest position and call cantrell is within reach.
[2018-08-07 07:18] VITALS: BP 123/67
[2018-08-07] MEDS: INSULIN LISPRO 100 UNIT/1 ML 3ML VIAL SQ SCH ×4 (07:46→21:21)
[2018-08-07 09:39] VITALS: BP 123/67
[2018-08-07 11:06] VITALS: BP 124/60
[2018-08-07 15:28] VITALS: BP 120/57
[2018-08-07 15:56] LABS: BILIRUBIN,URINE MODERATE (NEGATIVE); CLARITY,URINE SL CLOUDY (CLEAR); COLOR,URINE YELLOW (YELLOW); KETONES,URINE NEGATIVE (NEGATIVE); LEUKOCYTE ESTERASE ,URINE NEGATIVE (NEGATIVE); NITRITE,URINE NEGATIVE (NEGATIVE); PROTEIN,URINE DIPSTICK 1+ (NEGATIVE); URINE UROBILINOGEN 0.2 mg/dL (0.2 - 1)
[2018-08-07 16:09] LABS: AMORPHOUS SEDIMENT,URINE MANY (FEW); BACTERIA,URINE FEW /HPF; RBC,URINE 0-5 /HPF (0-5)
[2018-08-07] MEDS: CEFTRIAXONE SOD 1 GM/NS 50 ML 50 ML IV SCH (18:07)
[2018-08-07] MEDS: SODIUM CHLORIDE 0.9% 1000ML 1,000 ML IV SCH (18:29)
--- NOTE | 2018-08-07 19:35 | NUR ---
received report from day nurse. patient is resting comfortably in bed. bed is in lowest position and call cantrell is within reach. denies pain or discomfort. will continue to monitor patient's care.
[2018-08-07 20:00] VITALS: BP 130/65
--- NOTE | 2018-08-07 23:00 | NUR ---
House Mother is on unit assessing patient. MD has ordered large volume paracentesis by I and R for the morning. MD has also ordered that various test be conducted on this fluid. New orders for AM labs have been placed by . will continue to monitor patient.
[2018-08-08] VITALS (7 sets, daily range): BP systolic 115–152; BP diastolic 60–82
[2018-08-08 05:27] LABS: HEMOGLOBIN 9.4 g/dL (14.0-18.0); MEAN CORPUSCULAR HEMOGLOBIN 29.1 pg (28-32); MEAN CORPUSCULAR HGB CONC 33.6 g/dL (31-35); MEAN CORPUSCULAR VOLUME 86.7 fL (81-99); PLATELET COUNT 359 x10e3/uL (140-360); RED BLOOD COUNT 3.23 x10e6/uL (4.3-5.7); RED CELL DISTRIBUTION WIDTH 13.8 % (11.7-14.4)
--- NOTE | 2018-08-08 05:51 | NUR ---
attending physician on unit assessing patient. received new order for consult with Dr dangelo for acute kidney failure. also received new order to lower infusion rate to 50cc/hr. will continue to monitor patients care.
[2018-08-08 05:55] LABS: ALBUMIN 1.7 g/dL (3.5-5.0); ALBUMIN/GLOBULIN RATIO 0.4 (0.8-2.0); ANION GAP 15.3 mmol/L (8-16); CALCIUM 8.6 mg/dL (8.4-10.2); CREATININE, SERUM 2.7 mg/dL (0.72-1.25); POTASSIUM 4.3 mmol/L (3.5-5.1)
--- NOTE | 2018-08-08 06:49 | NUR ---
answering service for dr dangelo notified of routine consultation. awaiting call back from .
[2018-08-08] MEDS: INSULIN LISPRO 100 UNIT/1 ML 3ML VIAL SQ SCH ×4 (07:30→20:51)
--- NOTE | 2018-08-08 07:35 | NUR ---
Pt is lying flat in bed AAOx3 in no acute distress noted. Pt informed of the plan of care, educated on need to be NPO for paracentesis and HIDA scan. Pt verbalized understanding of all instruction given. NaCl infusing at 50cc/hr to RAC and IV site patent and dressing c/d/i. Pt c/o of mouth dryness given mouth swab to relieve discomfort. Pt and family at bedside instructed to call for assistance, bed at a locked and lowest position with side rails upx2.
--- NOTE | 2018-08-08 10:48 | NUR ---
pt en route to [place] for HIDA scan, he is AAOx3 in no acute distress noted.
--- NOTE | 2018-08-08 13:30 | NUR ---
Received pt from radiology s/p paracentesis per report received total of fluid removed was 1.8L. Pt is AAO3 in no acute distress noted, vs 113/73, hr 105, T96.8. Pt is resting comfortably in bed. call light within reach.
[2018-08-08 13:33] LABS: LYMPHOCYTES % (MANUAL) 26 % (19-48); METAMYELOCYTES % (MANUAL) 1 % (0-0); MONOCYTES % (MANUAL) 6 % (3.4-9.0); MYELOCYTES % (MANUAL) 1 % (0-0); NEUTROPHILS % (MANUAL) 64 % (40-74)
[2018-08-08 13:35] LABS: ANISOCYTOSIS SLIGHT; HYPOCHROMASIA SLIGHT; RBC MORPHOLOGY COMMENT NORMAL
[2018-08-08 13:36] LABS: PLATELET ESTIMATE ADEQUATE; PLATELET MORPHOLOGY COMMENT NORMAL
--- NOTE | 2018-08-08 13:58 | Diagnostic Imaging Report ---
Date and Time: 08/08/2018 Procedure: Ultrasound-guided paracentesis kelly machine operator: Dr. Gaona Pre-operative diagnosis: Ascites Post-operative diagnosis: Ascites Conscious Sedation: None The patient's heart rate and pulse oximetry were continuously monitored by the interventional radiology nurse. Blood pressure was monitored at 5 minute intervals. Additional Medications: Lidocaine 1% for local anesthesia Estimated blood loss: Minimal Blood products administered: None Specimens: 1800 cc dark green fluid. Implants: None DISCUSSION: Informed consent was obtained and documented in the medical record after discussion of risks and benefits. The patient was placed in the supine position on the sonographic table. The right abdomen was prepped and draped in the standard sterile fashion. A suitable percutaneous approach to the ascitic fluid in the right lower quadrant was identified and 1% lidocaine was infiltrated into the skin and subcutaneous tissues for local anesthesia. Then under continuous sonographic guidance a 5 Romansh Yueh needle catheter was advanced into the ascitic fluid. The catheter was advanced off the needle and connected to vacuum bottle with subsequent evacuation of 1800 cc dark green fluid. The catheter was removed and a sterile dressing was applied. The patient tolerated the procedure well without immediate complication. FINDINGS: Small volume ascites IMPRESSION: Successful ultrasound-guided paracentesis with evacuation of 1800 cc dark green fluid. Specimen was submitted for laboratory analysis as requested by the referring clinical team. Signed by: Dr. Rolando Gaona M.D. on 08/08/2018 1:55 PM
[2018-08-08] MEDS ORDERED: ALBUMIN 5% 0.05 GM/ML BTL IV ONE ×2 (14:00→14:30)
--- NOTE | 2018-08-08 15:09 | Diagnostic Imaging Report ---
Post-Cholecystectomy HIDA Scan Clinical information: S/P laparoscopic cholecystectomy about 2.5 weeks ago with persistent abdominal pain and now with ascites and bile on paracentesis. Report: Following intravenous administration of 6.3 mCi of technetium-99m mebrofenin, dynamic images of the abdomen in the anterior projection were obtained through 60 minutes. Perfusion to the liver is normal. Extraction of tracer by the liver parenchyma is mildly prolonged. Tracer appears in the biliary tract by 18 minutes post injection. Tracer is not seen in the common bile duct or in the small bowel through 1 hour of imaging. After tracer appears in the right and left hepatic ducts and in the hepatic duct, tracer appears to seep to the inferior tip of the right hepatic lobe and then appears along the contour of the right hepatic lobe from the inferior tip to the dome. No tracer is seen freely in the peritoneal cavity of in the pericolic gutters during the study. Impression: 1. A bile leak is present that appears to start in the gallbladder fossa and then extends to the inferior tip of the right hepatic lobe and seeps along the contour of the right hepatic lobe from the inferior tip to the dome. 2. No tracer is seen in the CBD of small bowel. This could be due to cholestasis or to diversion of tracer along the right hepatic lobe. 3. Results were discussed by phone with Dr. Michael Porras at 255 pm on 08/08/2018. Signed by: Dr. Amara Lazcano M.D. on 08/08/2018 3:06 PM
[2018-08-08] MEDS ORDERED: ALBUMIN 5% 250ML 250 ML IV ONE (15:15)
[2018-08-08 15:41] LABS: BILIRUBIN,URINE SMALL (NEGATIVE); CLARITY,URINE CLOUDY (CLEAR); COLOR,URINE STRAW (YELLOW); KETONES,URINE NEGATIVE (NEGATIVE); LEUKOCYTE ESTERASE ,URINE TRACE (NEGATIVE); NITRITE,URINE NEGATIVE (NEGATIVE); PROTEIN,URINE DIPSTICK 1+ (NEGATIVE); URINE UROBILINOGEN 0.2 mg/dL (0.2 - 1)
[2018-08-08 15:55] LABS: AMMONIUM BIURATE CRYSTALS,UR MODERATE; BACTERIA,URINE MANY /HPF; EPITHELIAL CELLS,URINE MODERATE /LPF; RBC,URINE 0-5 /HPF (0-5)
--- NOTE | 2018-08-08 15:58 | NUR ---
Patient transferred to room 106 with all belongings in stable condition. at side. Accepting nurse aware patient is in room. Call cantrell within reach.
--- NOTE | 2018-08-08 16:00 | NUR ---
RECEIVED PATIENT TO MED SURG 1. PATIENT A/O X3, EVEN RESPIRATIONS ON RA. BOWEL SOUNDS ACTIVE SKIN INTACT, NO EDEMA. PATIENT AMBULATORY WITH STANDBY ASSIST. PARACENTESIS DRESSING INTACT, CLEAN/DRY. RIGHT AC 18 GAUGE INTACT AND PATENT. VITAL SIGNS STABLE. AT BEDSIDE. CALL LIGHT IN REACH WILL CONTINUE TO MONITOR.
--- NOTE | 2018-08-08 16:03 | Diagnostic Imaging Report ---
EXAMINATION: Renal ultrasound. CLINICAL HISTORY :Renal insufficiency COMPARISON: 08/06/2018 CT abdomen and pelvis without contrast TECHNIQUE: Grayscale and color Doppler evaluation of the kidneys and bladder was performed in transverse and longitudinal planes. DISCUSSION: RIGHT KIDNEY: The right kidney measures 11.8 cm in length and shows normal echogenicity. No hydronephrosis, shadowing calculi or solid mass lesions. LEFT KIDNEY: The left kidney measures 11.8 cm in length and shows normal echogenicity. No hydronephrosis, shadowing calculi or solid mass lesions. BLADDER: Unremarkable. Right and left ureteral jets are identified. IMPRESSION: Unremarkable sonographic appearance of the kidneys. Signed by: Dr. Rolando Gaona M.D. on 08/08/2018 3:59 PM
[2018-08-08 17:12] LABS: CREATININE,URINE RANDOM 97.73 mg/dL (63-166); TOTAL PROTEIN, URINE 35.3 mg/dL (1-14)
[2018-08-08 17:13] LABS: BODY FLUID COLOR GREEN; BODY FLUID TYPE PERITONEAL
[2018-08-08 17:14] LABS: BODY FLUID APPEARANCE TURBID; RBC,BODY FLUID 88 cells/uL; WBC,BODY FLUID 14 cells/uL
--- NOTE | 2018-08-08 18:25 | NUR ---
RIGHT AC IV LEAKING. REMOVED IV, CATHETER TIP INTACT, AND PRESSURE DRESSING APPLIED. NEW IV STARTED TO LEFT UNDER FA 20 GAUGE. ALBUMIN IV RESUMED.
[2018-08-08 18:39] LABS: LYMPHOCYTES,BODY FLUID 4 %; MONO/MACROPHG,BODY FLUID 20 %; NEUTROPHILS,BODY FLUID 16 %; OTHER CELLS,BODY FLUID 60 %
[2018-08-08] MEDS: SODIUM BICARBONATE 8.4% SYRING 150 ML in DEXTROSE 5% 1,000 ML IV SCH (18:46)
[2018-08-08] MEDS: CEFTRIAXONE SOD 1 GM/NS 50 ML 50 ML IV SCH (19:20)
--- NOTE | 2018-08-08 19:20 | NUR ---
Report taken from am rn.walking rounds done.lyeing quietly in the bed.call placed to regarding MRI ERCP.He stated that it is ok to do on Saturday.
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
--- NOTE | 2018-08-08 23:21 | NUR ---
Consent signed.npo advised.voided.iv fluid running.keep monitor the pt.
[2018-08-08] MEDS ORDERED: PANTOPRAZOLE 40 MG 10ML VIAL IV STA (23:48)
[2018-08-09] VITALS (7 sets, daily range): BP systolic 125–136; BP diastolic 62–70
--- NOTE | 2018-08-09 00:19 | NUR ---
is in the unit to see the pt.ordered protonix 80 mg stat.given.
--- NOTE | 2018-08-09 00:52 | Consultation ---
DATE OF CONSULTATION: 08/08/2018 HISTORY OF PRESENT ILLNESS: The patient is a 77-year-old male known to me. He had surgery about 4 weeks ago. He came in with jaundice and common bile duct stone. He had ERCP with stone removal then laparoscopic cholecystectomy. Postoperative course was complicated by prolonged ileus and also jaundice; however, this was gradually improving and the jaundice was improving and he went home approximately 12 days ago. He returned 2 days ago with increased abdominal distention, was found to have ascites and drainage ascites has revealed bile. HIDA scan done today reveals a bile leak probably from the gallbladder fossa. The patient at this time says since he has had paracentesis, feels well with no nausea or vomiting. He has not had any fever. PAST MEDICAL HISTORY: Significant for diabetes, hypertension, and chronic kidney disease. PREVIOUS SURGERIES: As stated above. FAMILY HISTORY: Noncontributory. SOCIAL HISTORY: The patient does not smoke cigarettes or drink alcohol. REVIEW OF SYSTEMS: As stated above. PHYSICAL EXAMINATION: GENERAL: The patient is awake and alert. VITAL SIGNS: At this time, reveals slight tachycardia. Heart rate 108. He is afebrile. HEENT: There is no scleral icterus. NECK: Has no masses. LUNGS: Equal breath sounds and clear bilaterally. CARDIAC: Regular rate and rhythm. ABDOMEN: Soft. There is slight distention. There is no mass. EXTREMITIES: Have no edema. NEUROLOGIC: Grossly intact. LAB TESTS: [place] [address], hemoglobin 9.4 and hematocrit 28. Chemistries reveal a bilirubin of 5.3, alkaline phosphatase 289, BUN is 58, and creatinine 2.7. ASSESSMENT: A 77-year-old male has a bile leak. PLAN: Diagnostic laparoscopy to be done tomorrow with drainage of bile, placement of drain in the area of leakage. Further evaluation with MRCP and he may need ERCP and a stent placement also. Thank you for asking me to see Mr. Hudson. MD LASHANDA Moncada/STARR /[id number]
[2018-08-09] MEDS: SODIUM BICARBONATE 8.4% SYRING 150 ML in DEXTROSE 5% 1,000 ML IV SCH (01:30)
--- NOTE | 2018-08-09 06:00 | NUR ---
PT REFUSED HIBICLEANS BATH RIGHT NOW.AGREED TO TAKE LATER.
[2018-08-09 06:01] LABS: ALBUMIN 1.9 g/dL (3.5-5.0); ALBUMIN/GLOBULIN RATIO 0.5 (0.8-2.0); ANION GAP 13.1 mmol/L (8-16); CALCIUM 8.2 mg/dL (8.4-10.2); CREATININE, SERUM 2.46 mg/dL (0.72-1.25); POTASSIUM 4.1 mmol/L (3.5-5.1)
[2018-08-09] MEDS ORDERED: SODIUM CHLORIDE 0.9% 1000ML 1,000 ML IV STA (06:45)
[2018-08-09] MEDS ORDERED: PHYTONADIONE 10 MG/ML AMP SQ ONE (06:45)
--- NOTE | 2018-08-09 07:02 | NUR ---
REPORT GIVEN TO THE ONCOMING RN.WALKING ROUNDS DONE.STABLE CONDITION.
--- NOTE | 2018-08-09 07:20 | NUR ---
RECEIVED PATIENT AWAKE RESTING IN BED NO SIGNS OF DISTRESS AT THIS TIME. BED LOW, WHEELS LOCKED, SIDE RAILS X2. CALL LIGHT IN REACH. AT BEDSIDE. WILL CONTINUE TO MONITOR PATIENT.
[2018-08-09] MEDS: INSULIN LISPRO 100 UNIT/1 ML 3ML VIAL SQ SCH ×4 (07:30→21:40)
[2018-08-09] MEDS ORDERED: BACITRACIN 50,000 UNIT VIAL ONE (07:40)
[2018-08-09] MEDS ORDERED: BUPIVACAINE HCL 0.5% INJ 30 ML VIAL INJ ONE (07:40)
--- NOTE | 2018-08-09 07:48 | Progress Note ---
DATE: 08/09/2018 SUBJECTIVE: The patient is a 77-year-old male that comes in status post cholecystectomy with ascites and the patient is admitted to the hospital for bile leak. The patient continues to have some abdominal pain and also abdominal distention. The patient has also acute on chronic kidney injury, currently the BUN is 52 and creatinine of 2.46. The patient is not short of breath. No chest pains. No fever. Yesterday, a gallbladder scan was done, which showed bile leak. PHYSICAL EXAMINATION: GENERAL: The patient is alert and oriented x3. VITAL SIGNS: Temperature is 97.1, pulse of 105, respirations 20, blood pressure is 129/64, and pulse oximetry of 97%. HEENT: Normocephalic, atraumatic. Pupils are reactive to light and accommodation. CVS: S1, S2 normal. Regular rate and rhythm. ABDOMEN: Slightly distended. EXTREMITIES: No clubbing, no cyanosis, and/or no edema. The patient has icterus present. LABORATORY DATA: The patient's sodium is 134, potassium is 4.1, BUN is 53, creatinine of 2.46, and glucose of 249. The patient's hematology; white count is 12,000, hemoglobin of 9.4, and hematocrit of 28. ASSESSMENT: 1. Bile leak. 2. The patient has a nuclear scan, which showed a bile leak. 3. Hypertension, which is improved. 4. The patient is jaundiced because of bile leak. 5. The patient also has hyponatremia, acute kidney injury, anemia, and hyperbilirubinemia. PLAN: To continue to monitor the patient, consultants on board, Dr. Howell, Dr. Oxana Sin, and Dr. Michale Porras. We will continue to monitor the patient. Further recommendation per clinical course. ADDITIONAL DIAGNOSIS: New onset ascites, status post large volume paracentesis and lastly type 2 diabetes mellitus, insulin sliding scale. For further information, look in the chart. We will continue to monitor the patient along with consultants. MD NORMA UrrutiaJ/MODL /[id number]
[2018-08-09] MEDS: PANTOPRAZOLE 40 MG 10ML VIAL IV SCH ×2 (08:30→21:40)
--- NOTE | 2018-08-09 08:55 | NUR ---
PATIENT A/O X3, EVEN RESPIRATIONS ON RA. TELE #9 ST. LEFT FA 20 GAUGE WITH IVF @ 100 CC/HR. PATIENT NPO AT THIS TIME FOR PROCEDURE THIS MORNING. PATIENT AMBULATORY AND VOIDS IN TOILET. CALL LIGHT IN REACH. VITAL SIGNS STABLE. AT BEDSIDE. WILL CONTINUE TO MONITOR PATIENT.
--- NOTE | 2018-08-09 10:01 | NUR ---
Explained that he is now inpatient. IMM letter explained and he verbalized understanding and signed. Copy to pt and original placed in chart.
--- NOTE | 2018-08-09 11:26 | NUR ---
PATIENT LEFT UNIT TO OR FOR SURGERY AT THIS TIME.
[2018-08-09] MEDS ORDERED: MORPHINE SULFATE INJ 4 MG/ML INJ 1ML IV PRN (13:00)
[2018-08-09] MEDS ORDERED: HYDROCODONE/APAP 7.5MG-325MG 1 EA TAB PO PRN (13:00)
[2018-08-09] MEDS ORDERED: ONDANSETRON HCL INJ 2MG/ML 2ML 2 MG/ML VIAL IV PRN (13:00)
[2018-08-09] MEDS ORDERED: SUGAMMADEX SODIUM 200 MG/2 ML VIAL IV ONE (13:12)
--- NOTE | 2018-08-09 14:09 | NUR ---
RECEIVED REPORT FROM RECOVERY. WAITING FOR PATIENT TO ARRIVE AT THIS TIME.
--- NOTE | 2018-08-09 14:14 | Operative Report ---
DATE OF PROCEDURE: 08/09/2018 SURGEON: Rolando Howell MD PREOPERATIVE DIAGNOSIS: Biliary fistula, intraabdominal abscess, and biloma. POSTOPERATIVE DIAGNOSIS: Biliary fistula, intraabdominal abscess, and biloma. PROCEDURE: Diagnostic laparoscopy, laparoscopic drainage of intraabdominal abscess and biloma. MACHINE ZIPPER TRIMMER: None. ANESTHESIA: General. INDICATIONS AND FINDINGS: The patient is a 77-year-old male who had a cholecystectomy almost a month ago. He is admitted to the hospital, large amount of abdominal fluid. Paracentesis revealed bilious fluid. His HIDA scan suggested bile leak in the area of the gallbladder fossa. Moderate amount of bilious fluid in the peritoneal cavity with bile staining of all of the intraperitoneal structures. There were adhesions of the omentum to the liver. There is a gallbladder fossa had no obvious leakage of bile. Clips were seen on the cystic artery and cystic duct. There is a large amount of bilious fluid in this right subhepatic space. TECHNIQUE: After adequate general endotracheal anesthesia, the patient's supine position, the abdomen was prepped and draped in a sterile fashion with ChloraPrep solution. Going to the previous periumbilical wound, skin and subcutaneous tissues were infiltrated with 0.5% Marcaine and transverse incision made. Abdominal wall was elevated and Veress needle was introduced. Pneumoperitoneum was then created. A 10 mm trocar and cannula was then passed through this wound. Laparoscopic camera was introduced. Initial laparoscopy revealed bile staining and thick bilious material on most of the peritoneal surfaces. There was bilious fluid, which could be seen on the right side of the abdomen, also with adhesions in the midline. A 5 mm trocar and cannula were placed in the right upper quadrant. The bilious fluid was aspirated. Some of the thick bilious material also was cleaned off the peritoneal surfaces and aspirated. The peritoneal cavity was then irrigated with saline and fluid aspirated. There were adhesions in the midline. These were bluntly broken up. They were mostly thin fibrinous adhesions and a 5 mm trocar and cannula were placed in the epigastrium. Adhesions to the edge of the liver were divided, exposing the edge of the liver and the gallbladder fossa. The adhesions to the gallbladder fossa were lysed mostly fibrinous adhesions. Clips could be seen were they had been on the cystic artery, but also clips could be seen on the cystic duct and there was no obvious leakage of bile that could be seen. The peritoneal cavity was irrigated with large volume of saline approximately 5 L of saline. A 19-Kenyan Roly drain was then placed into Morison's pouch, brought out through the right upper quadrant cannula site. Hemostasis was seen to be adequate. Instruments and cannulas were then removed. Pneumoperitoneum was evacuated. Wounds were closed. Fascia in the larger trocar wound closed with 0 Vicryl. Skin to all wounds closed with nita. Sterile dressing applied. The patient tolerated the procedure well. Estimated blood losswas 10 mL. There were no complications. All counts were correct and the patient was taken to the recovery room in satisfactory condition. MD LASHANDA Moncada/STARR /[id number]
--- NOTE | 2018-08-09 14:16 | NUR ---
PATIENT BACK FROM RECOVERY. 2 BAND-AID SITES ON ABDOMEN CLEAN DRY AND INTACT. HERMAN DRAIN IN PLACE WITH SEROUS FLUID, DRESSING INTACT. BOWEL SOUNDS HYPOACTIVE. NO SIGNS OF DISTRESS AT THIS TIME. PATIENT TOLERATING ICE CHIPS, NO NAUSEA. CALL LIGHT IN REACH WILL CONTINUE TO MONITOR PATIENT.
[2018-08-09] MEDS: SODIUM CHLORIDE 0.9% 1000ML 1,000 ML IV SCH ×2 (14:24→20:20)
[2018-08-09] MEDS ORDERED: LIDOCAINE HCL 2% LOCAL INJ 5 ML SDV VIAL INJ ONE (17:29)
[2018-08-09] MEDS ORDERED: DESFLURANE 240 ML BTL INH ONE (17:29)
[2018-08-09] MEDS ORDERED: GLYCOPYRROLATE INJ 1MG/ 5 ML SYR ONE (17:29)
[2018-08-09] MEDS ORDERED: PROPOFOL IV EMULSION 10 MG/ML 20 ML VIAL ONE (17:29)
[2018-08-09] MEDS ORDERED: ROCURONIUM BROMIDE 10 MG/ML 5ML VIAL ONE (17:29)
[2018-08-09] MEDS ORDERED: NEOSTIGMINE 5 MG/5ML SYR ONE (17:29)
[2018-08-09] MEDS: CEFTRIAXONE SOD 1 GM/NS 50 ML 50 ML IV SCH (17:49)
[2018-08-09] MEDS ORDERED: MIDAZOLAM HCL 2 MG/2 ML VIAL ONE (18:46)
[2018-08-09] MEDS ORDERED: FENTANYL CITRATE/PF 100MCG/2 ML INJ ONE (18:46)
[2018-08-10] VITALS (7 sets, daily range): BP systolic 118–138; BP diastolic 64–71
[2018-08-10] MEDS: SODIUM CHLORIDE 0.9% 1000ML 1,000 ML IV SCH ×3 (04:08→16:01)
[2018-08-10 05:53] LABS: BASOPHILS % 0.4 % (0.0-1.0); EOSINOPHILS # (AUTO) 0.1 (0.0-0.4); EOSINOPHILS % 0.7 % (0.0-6.0); HEMATOCRIT 26.2 % (38.2-49.6); HEMOGLOBIN 8.7 g/dL (14.0-18.0); LYMPHOCYTES # (AUTO) 2.1 (1.0-3.2); LYMPHOCYTES % 18.3 % (18.0-39.1); MEAN CORPUSCULAR HGB CONC 33.2 g/dL (31-35); MEAN CORPUSCULAR VOLUME 87.3 fL (81-99); MONOCYTES # (AUTO) 0.8 (0.2-0.8); MONOCYTES % 7.1 % (4.4-11.3); NEUTROPHILS # (AUTO) 8.1 (2.1-6.9); NEUTROPHILS % 72.1 % (38.7-80.0); PLATELET COUNT 300 x10e3/uL (140-360); RED CELL DISTRIBUTION WIDTH 14.1 % (11.7-14.4)
[2018-08-10 06:17] LABS: ALBUMIN 1.7 g/dL (3.5-5.0); ALBUMIN/GLOBULIN RATIO 0.4 (0.8-2.0); ANION GAP 11.3 mmol/L (8-16); CALCIUM 7.8 mg/dL (8.4-10.2); CREATININE, SERUM 2.27 mg/dL (0.72-1.25); POTASSIUM 4.3 mmol/L (3.5-5.1)
--- NOTE | 2018-08-10 06:19 | NUR ---
DR. DOUGLAS DOING ROUNDS. NEW ORDER RCV TO DC IV FLUIDS
--- NOTE | 2018-08-10 06:23 | NUR ---
SPOKE TO DR. DOUGLAS AT THIS TIME. ORDERED TO RESTART IV FLUIDS AT 75MLS/HR.
--- NOTE | 2018-08-10 07:20 | NUR ---
RECEIVED PATIENT ASLEEP IN BED NO SIGNS OF DISTRESS AT THIS TIME. BED LOW, WHEELS LOCKED, SIDE RAILS X2. CALL LIGHT IN REACH. AT BEDSIDE WILL CONTINUE TO MONITOR PATIENT.
[2018-08-10] MEDS: INSULIN LISPRO 100 UNIT/1 ML 3ML VIAL SQ SCH ×4 (08:29→20:43)
[2018-08-10] MEDS: PANTOPRAZOLE 40 MG 10ML VIAL IV SCH ×2 (08:30→20:43)
--- NOTE | 2018-08-10 09:02 | Progress Note ---
DATE: 08/10/2018 SUBJECTIVE: The patient is a 77-year-old male, who comes in with biliary leak, status post laparoscopic evacuation of bile yesterday. The patient also had adhesiolysis, continues to be in some abdominal pain, distention noted again today. PHYSICAL EXAMINATION: VITAL SIGNS: Temperature is 98.0, pulse of 109, respirations of 18, blood pressure is 126/67, and pulse oximetry is 97%. GENERAL: He is eating. Positive for jaundice. CVS: S1, S2 distant. Regular rate and rhythm. ABDOMEN: Distended. Ascites is present. EXTREMITIES: Positive for edema. MEDICATIONS: Pantoprazole, insulin-sliding scale, Rocephin, Zofran, and hydrocodone as needed. LABORATORY VALUES: 1[place] [address], hemoglobin of 8.7, hematocrit 26.2. Sodium of 134, potassium is 4.3, BUN 43, creatinine of 2.27. Glucoses have been running high. Alkaline phosphatase is 24 to 40, total bilirubin 5.2, AST 89, and ALT 72. ASSESSMENT AND PLAN: 1. Biliary leak, status post cholecystectomy, status post additional lysis, status post laparoscopic evacuation of bile. 2. Ascites, probably will need another paracentesis. 3. Hypertension. Continue with antihypertensive judiciously. 4. Fluid resuscitation. We will stop the fluid at this time. 5. Anemia. Probably, combination of dilutional and blood loss. 6. Acute kidney injury. We will cut down the fluids to 75 mL an hour. 7. Further recommendation per clinical course. At this point in time, we will continue fluids and also continue to monitor the patient's consultants on board, surgery, Nephrology, and GI. We will continue to monitor the patient along with them. MD LILIAN Urrutia/MODL /[id number]
--- NOTE | 2018-08-10 12:15 | NUR ---
ZOFRAN GIVEN FOR PATIENT COMPLAINT OF NAUSEA. VOMITED ONCE.
[2018-08-10] MEDS: CEFTRIAXONE SOD 1 GM/NS 50 ML 50 ML IV SCH (17:38)
--- NOTE | 2018-08-10 23:46 | NUR ---
DR. Makayla RAMIREZ DOING ROUNDS. NEW ORDER RCV FOR STAT KUB.
[2018-08-11] VITALS (7 sets, daily range): BP systolic 117–163; BP diastolic 66–74
--- NOTE | 2018-08-11 01:01 | Diagnostic Imaging Report ---
EXAM: Abdomen 2 Views INDICATION: ^ABDOMINAL DISTENTION ^[id number] ^0022 COMPARISON: CT abdomen and pelvis 08/06/2018 FINDINGS: Lines/tubes: Right upper quadrant drain and surgical clips. Additional surgical clip in the left lower quadrant. Mild amount of stool in the colon. No dilated loops of small bowel. There appears to be inflammatory changes of few loops of the small bowel in the mid abdomen. The ascites is probably decreased when compared to 08/06/2018. No renal calculi. No abnormal soft tissue masses. Advanced degenerative changes in the lumbar spine and pelvis. Severe compression deformity of T12 vertebral body. IMPRESSION: 1. There appears to be decreased amount of ascites. 2. Mild inflammatory changes of the small bowel. Nonobstructive bowel gas pattern. Signed by: Dr. Delores Lynch M.D. on 08/11/2018 12:58 AM
[2018-08-11 06:13] LABS: BASOPHILS % 0.2 % (0.0-1.0); EOSINOPHILS # (AUTO) 0.2 (0.0-0.4); EOSINOPHILS % 1.7 % (0.0-6.0); HEMOGLOBIN 8.1 g/dL (14.0-18.0); LYMPHOCYTES # (AUTO) 1.6 (1.0-3.2); LYMPHOCYTES % 16.3 % (18.0-39.1); MEAN CORPUSCULAR HEMOGLOBIN 29.1 pg (28-32); MEAN CORPUSCULAR HGB CONC 33.8 g/dL (31-35); MEAN CORPUSCULAR VOLUME 86.3 fL (81-99); MONOCYTES # (AUTO) 0.5 (0.2-0.8); MONOCYTES % 5.1 % (4.4-11.3); NEUTROPHILS # (AUTO) 7.4 (2.1-6.9); NEUTROPHILS % 75.8 % (38.7-80.0); PLATELET COUNT 284 x10e3/uL (140-360); RED BLOOD COUNT 2.78 x10e6/uL (4.3-5.7); RED CELL DISTRIBUTION WIDTH 14.1 % (11.7-14.4)
[2018-08-11 06:49] LABS: ALBUMIN 1.6 g/dL (3.5-5.0); ALBUMIN/GLOBULIN RATIO 0.4 (0.8-2.0); ANION GAP 13.4 mmol/L (8-16); CALCIUM 7.9 mg/dL (8.4-10.2); CREATININE, SERUM 2.32 mg/dL (0.72-1.25); POTASSIUM 4.4 mmol/L (3.5-5.1)
[2018-08-11] MEDS: INSULIN LISPRO 100 UNIT/1 ML 3ML VIAL SQ SCH ×4 (07:30→20:56)
[2018-08-11] MEDS: SODIUM CHLORIDE 0.9% 1000ML 1,000 ML IV SCH (09:10)
[2018-08-11] MEDS: PANTOPRAZOLE 40 MG 10ML VIAL IV SCH ×2 (09:17→20:54)
--- NOTE | 2018-08-11 11:53 | NUR ---
WHEELED OFF UNIT VIA WC FOR MRCP, NO CHANGE IN CONDITION
--- NOTE | 2018-08-11 13:15 | NUR ---
BACK IN ROOM VIA WC , NO CHANGE IN CONDITION
--- NOTE | 2018-08-11 14:57 | Diagnostic Imaging Report ---
EXAM: MRI of the abdomen without contrast MRCP INDICATION: Jaundice. Postop cholecystectomy.. COMPARISON: MRCP dated 07/05/2018. Correlation with prior CT examinations the most recent dated 08/06/2018.. TECHNIQUE: Multiplanar, multisequence MRCP was performed, with sequences including coronal turbo spin-echo T1-weighted scans, [facility] MRCP scans, coronal spin, coronal MPR 2, [facility] 3[facility] HR, [facility] MRCP GUERRIER. Discussion: Image degradation by breathing motion artifact particularly on MR CP sequences. LOWER THORAX: Unremarkable. HEPATOBILIARY: Mildly diffuse hyperintensity of the hepatic parenchyma on the T2-weighted scans, with higher signal intensity on the T1-weighted out of phase scans compared to the in phase scans (reversed with signal drop sign) which are nonspecific, however, could reflect hemosiderosis. No focal hepatic lesions. Diffuse dilatation of the common bile duct up to 1.2 cm. Abrupt cut off distally, in the region of the pancreatic head best seen on coronal image 21 series 7, with same image demonstrating a 2.5 x 1.6 cm lesion identified involving the pancreatic head, distal CBD or arising from the ampulla. This is not further characterized due to lack of contrast. There is mild central intrahepatic biliary dilatation. GALLBLADDER: Absent. SPLEEN: No splenomegaly. PANCREAS: Mild main pancreatic duct dilatation up to 5 mm in diameter. ADRENALS: No adrenal nodules KIDNEYS/URETERS: 1.8 cm T2 hyperintense lesion in the lower pole of the left side left right kidney suggestive of a cyst. No stones. GI TRACT: No abnormal distention, wall thickening, or evidence of bowel obstruction. LYMPH NODES: No lymphadenopathy. VESSELS: Unremarkable. PERITONEUM / RETROPERITONEUM: Small volume ascites appears decreased compared to the prior examination. BONES: 1.3 cm T1 hyperintense lesion in the L3 vertebral body may represent a small hemangioma. SOFT TISSUES: Unremarkable. IMPRESSION: 1. Findings concerning for a mass in the pancreatic head, versus less likely distal CBD or ampullary resulting in "double duct sign" (diffuse common bile duct dilatation and mild main pancreatic ductal dilatation), and mild central intrahepatic biliary dilatation. This mass is not completely characterized due to lack of contrast. Recommend dedicated MRI abdomen pancreatic mass protocol without and with contrast. Alternatively, consider ERCP. 2. Small volume ascites. Signed by: Dr. Leno Colón M.D. on 08/11/2018 2:53 PM
--- NOTE | 2018-08-11 15:54 | NUR ---
PT HAS REPORTED HAVING 2 BM'S, TOLERATING SMALL FRUIT CUP, CALL LIGHT WITHIN REACH
[2018-08-11] MEDS: SODIUM BICARBONATE 8.4% SYRING 150 ML in DEXTROSE 5% 1,000 ML IV SCH (17:00)
[2018-08-11] MEDS: CEFTRIAXONE SOD 1 GM/NS 50 ML 50 ML IV SCH (17:54)
--- NOTE | 2018-08-11 19:00 | NUR ---
RECEIVED PATIENT IN BEDSIDE REPORT. PATIENT REPORTS "NO MORE PAIN THAN USUAL," DOES NOT WANT PAIN MEDICINE. NO S&S OF DISTRESS NOTED. BANDAIDS TO ABDOMEN C/D/I. DRESSING OVER HERMAN DRAIN C/D/I, DRAINING BROWN/YELLOW FLUID, NO CLOTS OR SEDIMENT NOTED IN DRAIN. SCDS AT BEDSIDE, PATIENT REPORTS HE WILL WEAR THEM WHEN HE GOES TO SLEEP. L FA 20G IV RUNNING SODIUM BICARB IN D5 AT 70 ML/HR, ASYMPTOMATIC, INTACT, AND PATENT. BED LOCKED IN LOWEST POSITION, SIDE RAILS UPX2, CALL LIGHT IN REACH.
[2018-08-12] VITALS (7 sets, daily range): BP systolic 131–155; BP diastolic 68–78
[2018-08-12 06:48] LABS: ALBUMIN 1.6 g/dL (3.5-5.0); ALBUMIN/GLOBULIN RATIO 0.4 (0.8-2.0); ANION GAP 11.2 mmol/L (8-16); CALCIUM 8.1 mg/dL (8.4-10.2); CREATININE, SERUM 2.1 mg/dL (0.72-1.25); POTASSIUM 4.2 mmol/L (3.5-5.1)
--- NOTE | 2018-08-12 07:00 | NUR ---
RECEIVED AM REPORT FROM NURSE. PT IS AWAKE IN BED, NO S/S OF DISTRESS. BILATERAL SCD WERE REMOVED AT PT'S REQUEST. IVF RUNNING AT 70ML/HR IN L FA 20G. CALL LIGHT WITHIN REACH, SIDE RAILS UP, BED IN LOWEST POSITION, AT BEDSIDE.
[2018-08-12] MEDS: INSULIN LISPRO 100 UNIT/1 ML 3ML VIAL SQ SCH ×4 (07:30→20:58)
[2018-08-12] MEDS: PANTOPRAZOLE 40 MG 10ML VIAL IV SCH ×2 (09:15→21:26)
[2018-08-12] MEDS ORDERED: FUROSEMIDE INJ 10 MG/ML 4 ML VIAL IV ONE (12:45)
[2018-08-12] MEDS ORDERED: IOPAMIDOL 610MG/1ML 300 MG/ML VIAL IV ONE (13:27)
[2018-08-12] MEDS ORDERED: INDOMETHACIN 50 MG SUPP.RECT RC ONE (13:27)
--- NOTE | 2018-08-12 15:08 | NUR ---
RECEIVED REPORT FROM FABY IN PACU AFTER ERCP PROCEDURE. RN REPORTS THAT PT IS IN STABLE CONDITION BP 147/87 HR 101 RR 18 O2 98% ON ROOM AIR
--- NOTE | 2018-08-12 15:43 | Diagnostic Imaging Report ---
Examination: Fluoroscopic images from ERCP. Indication: Biliary dilatation. Technique: Contrast material was injected into the biliary tree without a radiologist present. Multiple fluoroscopic spot images were obtained. Findings: Sequential fluoroscopic images show guidewire passage through the common bile duct and into the right hepatic biliary tree. Contrast injection shows intrahepatic and extrahepatic biliary dilatation with abrupt cut off of the common bile duct. Later images show a filling defect in the common bile duct compatible with a balloon catheter. Final images show a plastic stent traversing the common bile duct and presumably terminating within the duodenum. Impression: Findings are concerning for malignant obstruction at the level of the distal common bile duct, which may be due to intrinsic neoplasm (cholangiocarcinoma), or invasion from adjacent pancreatic head neoplasm. By report, the ampulla was normal on endoscopic evaluation. Findings were discussed with Dr. Nolan Porras at 3:00 PM 08/12/2018. Signed by: Dr. Rolando Gaona M.D. on 08/12/2018 3:40 PM
[2018-08-12] MEDS ORDERED: FUROSEMIDE INJ 10 MG/ML 4 ML VIAL ONE (16:04)
[2018-08-12] MEDS: SODIUM BICARBONATE 8.4% SYRING 150 ML in DEXTROSE 5% 1,000 ML IV SCH ×2 (16:57→22:52)
[2018-08-12] MEDS: CEFTRIAXONE SOD 1 GM/NS 50 ML 50 ML IV SCH (19:00)
--- NOTE | 2018-08-12 19:00 | NUR ---
RECEIVED PATIENT IN BEDSIDE REPORT. PATIENT IS A&OX3. NO PAIN REPORTED. NO S&S OF DISTRESS NOTED. SODIUM BICARB IN D5 RUNNING TO R FA IV AT 70 ML/HR, ASYMPTOMATIC, INTACT, AND PATENT. SCDS ON. AT BEDSIDE. NO DRAINAGE IN HERMAN DRAIN NOTED. BED LOCKED IN LOWEST POSITION, SIDE RAILS UPX2, CALL LIGHT IN REACH.
[2018-08-12] MEDS ORDERED: ROCURONIUM BROMIDE 10 MG/ML 5ML VIAL ONE (19:54)
[2018-08-12] MEDS ORDERED: MIDAZOLAM HCL 2 MG/2 ML VIAL ONE (19:54)
[2018-08-12] MEDS ORDERED: KETAMINE HCL INJ 50 MG/ML 10 ML VIAL ONE (19:54)
[2018-08-12] MEDS ORDERED: GLYCOPYRROLATE INJ 1MG/ 5 ML SYR ONE (19:54)
[2018-08-12] MEDS ORDERED: SEVOFLURANE INHAL SOLN 250 ML PEN BTL ONE (19:54)
[2018-08-12] MEDS ORDERED: FENTANYL CITRATE/PF 100MCG/2 ML INJ ONE (19:54)
[2018-08-12] MEDS ORDERED: PROPOFOL IV EMULSION 10 MG/ML 20 ML VIAL ONE (19:54)
[2018-08-12] MEDS ORDERED: NEOSTIGMINE 5 MG/5ML SYR ONE ×2 (19:54)
--- NOTE | 2018-08-12 20:10 | Operative Report ---
DATE OF PROCEDURE: 08/12/2018 SURGEON: Michael Porras MD PROCEDURE: ERCP with ERS balloon sweep and stent insertion. INDICATIONS FOR PROCEDURE: Post laparoscopic cholecystectomy leak, abnormal MRCP, the patient is in for an ERCP, ERS and stent insertion. MEDICATIONS: The patient was done under general endotracheal anesthesia, please see anesthesiologist's note. PROCEDURE IN DETAIL: With the patient in the left lateral decubitus position and after induction of adequate general endotracheal anesthesia, the flexible fiberoptic Olympus side-viewing scope was inserted into the esophagus, advanced all the way to the second portion of the duodenum. The ampulla was identified. The common bile duct was cannulated and a cholangiogram was carried out with obvious significant dilatation of the common bile duct. There was an abrupt cutoff in the distal common bile duct. Previous sphincterotomy cut was extended and a significant amount of debris was noted coming out of the common bile duct. Balloon sweep could not be done as the balloon would not traverse the distal common bile duct without deflating it. A size 10/5 biliary stent was then inserted into the common bile duct. The scope was subsequently withdrawn. The patient tolerated the procedure well. IMPRESSION: 1. Dilated common bile duct with abrupt cutoff in the distal common bile duct. 2. Endoscopic retrograde sphincterotomy was carried out to extend the previous sphincterotomy cut. Significant amount of debris was noted to be drained out of the common bile duct. 3. Balloon sweep could not be done as balloon would not traverse the distal common bile duct without deflating it. 4. A size 10/5 stent was inserted in the common bile duct. The patient overall tolerated the procedure well. We will review images with the radiologist. Findings were some for possible cholangiocarcinoma. Carcinoma of the head of the pancreas cannot be totally ruled out. CA 99 is pending. Michael Porras MD [facility] [place] /[id number] cc: MD Rolando Jules MD
[2018-08-13] VITALS (7 sets, daily range): BP systolic 121–133; BP diastolic 60–68
[2018-08-13 06:35] LABS: BASOPHILS % 0.3 % (0.0-1.0); EOSINOPHILS # (AUTO) 0.3 (0.0-0.4); EOSINOPHILS % 3.4 % (0.0-6.0); HEMATOCRIT 22.2 % (38.2-49.6); HEMOGLOBIN 7.5 g/dL (14.0-18.0); LYMPHOCYTES # (AUTO) 1.7 (1.0-3.2); LYMPHOCYTES % 23.6 % (18.0-39.1); MEAN CORPUSCULAR HGB CONC 33.8 g/dL (31-35); MEAN CORPUSCULAR VOLUME 85.7 fL (81-99); MONOCYTES # (AUTO) 0.4 (0.2-0.8); MONOCYTES % 5.7 % (4.4-11.3); NEUTROPHILS # (AUTO) 4.8 (2.1-6.9); NEUTROPHILS % 65.8 % (38.7-80.0); PLATELET COUNT 272 x10e3/uL (140-360); RED BLOOD COUNT 2.59 x10e6/uL (4.3-5.7); RED CELL DISTRIBUTION WIDTH 13.7 % (11.7-14.4)
[2018-08-13 06:57] LABS: ALBUMIN 1.6 g/dL (3.5-5.0); ALBUMIN/GLOBULIN RATIO 0.4 (0.8-2.0); ANION GAP 11.4 mmol/L (8-16); CALCIUM 7.6 mg/dL (8.4-10.2); CREATININE, SERUM 1.98 mg/dL (0.72-1.25); POTASSIUM 3.4 mmol/L (3.5-5.1)
--- NOTE | 2018-08-13 07:00 | NUR ---
Rcvd patient in report this am. Patient is asleep in bed at this time. NO s/s of distress noted
--- NOTE | 2018-08-13 07:19 | NUR ---
Lab called and reported a critical magnesium of 1.0. Call placed to .
[2018-08-13] MEDS ORDERED: MAGNESIUM SULFATE 2GM/50ML 50 ML IV ONE ×2 (07:30→14:30)
[2018-08-13] MEDS ORDERED: POTASSIUM CHLORIDE 20 MEQ TAB CR PO NR (08:15)
[2018-08-13] MEDS: PANTOPRAZOLE 40 MG 10ML VIAL IV SCH ×2 (08:32→21:01)
[2018-08-13] MEDS: INSULIN LISPRO 100 UNIT/1 ML 3ML VIAL SQ SCH ×4 (08:54→21:00)
[2018-08-13] MEDS ORDERED: POTASSIUM CHLORIDE 20 MEQ TAB CR PO STA (10:04)
--- NOTE | 2018-08-13 11:49 | NUR ---
IMM EXPLAINED, SIGNED BY PT AND ON CHART COPY OF IMM TO PT IN CARE TRANSITIONS FOLDER
--- NOTE | 2018-08-13 11:55 | NUR ---
Patient is AAOx3. Lung skelton clear to auscultation. Bowel sounds present but hypoactive. Abdomen remains distended. No c/o pain. HERMAN drain noted on left side. No edema noted. Right forearm IV in place. Family at bedside
[2018-08-13] MEDS: CEFTRIAXONE SOD 1 GM/NS 50 ML 50 ML IV SCH (17:38)
--- NOTE | 2018-08-13 17:56 | NUR ---
IV to the right forearm noted to be red. Stopped antibiotics and removed IV. Will attempt a new one
[2018-08-14] VITALS (8 sets, daily range): BP systolic 107–158; BP diastolic 60–87
[2018-08-14 06:08] LABS: BASOPHILS % 0.4 % (0.0-1.0); EOSINOPHILS # (AUTO) 0.2 (0.0-0.4); EOSINOPHILS % 2.8 % (0.0-6.0); HEMATOCRIT 21.7 % (38.2-49.6); HEMOGLOBIN 7.4 g/dL (14.0-18.0); LYMPHOCYTES % 26.9 % (18.0-39.1); MEAN CORPUSCULAR HGB CONC 34.1 g/dL (31-35); MEAN CORPUSCULAR VOLUME 85.1 fL (81-99); MONOCYTES # (AUTO) 0.5 (0.2-0.8); MONOCYTES % 6.1 % (4.4-11.3); NEUTROPHILS # (AUTO) 4.7 (2.1-6.9); NEUTROPHILS % 61.7 % (38.7-80.0); PLATELET COUNT 295 x10e3/uL (140-360); RED BLOOD COUNT 2.55 x10e6/uL (4.3-5.7); RED CELL DISTRIBUTION WIDTH 13.6 % (11.7-14.4)
[2018-08-14 06:49] LABS: ALBUMIN 1.7 g/dL (3.5-5.0); ALBUMIN/GLOBULIN RATIO 0.4 (0.8-2.0); CALCIUM 7.6 mg/dL (8.4-10.2); CREATININE, SERUM 1.7 mg/dL (0.72-1.25)
--- NOTE | 2018-08-14 07:14 | NUR ---
Rcvd patient in report this am. Patient is asleep in bed at this time. No s/s of distress noted
[2018-08-14] MEDS: INSULIN LISPRO 100 UNIT/1 ML 3ML VIAL SQ SCH ×4 (08:24→21:36)
[2018-08-14] MEDS: PANTOPRAZOLE 40 MG 10ML VIAL IV SCH ×2 (08:25→21:40)
[2018-08-14] MEDS ORDERED: MAGNESIUM HYDROXIDE 30 ML UDC PO PRN (08:45)
[2018-08-14 09:03] LABS: EOSINOPHILS % (MANUAL) 3 % (0-7); HYPOCHROMASIA MODERATE; LYMPHOCYTES % (MANUAL) 25 % (19-48); METAMYELOCYTES % (MANUAL) 2 % (0-0); MONOCYTES % (MANUAL) 6 % (3.4-9.0); MYELOCYTES % (MANUAL) 1 % (0-0); NEUTROPHILS % (MANUAL) 63 % (40-74); PLATELET ESTIMATE ADEQUATE; PLATELET MORPHOLOGY COMMENT NORMAL; RBC MORPHOLOGY COMMENT NORMAL
[2018-08-14] MEDS: DOCUSATE SODIUM 100 MG CAP PO SCH ×2 (10:04→17:40)
--- NOTE | 2018-08-14 13:30 | Diagnostic Imaging Report ---
EXAM: Magnetic Resonance Cholangiopancreatography (M.R.C.P.) INDICATION: ^pancreatic mass COMPARISON: ERCP 08/12/2018. MRCP 08/11/2018. CT abdomen and pelvis 08/06/2018. TECHNIQUE: Multiplanar, multisequence MRCP was performed, with sequences including coronal turbo spin-echo T1-weighted scans, [facility] MRCP scans, coronal spin, coronal MPR 2, [facility] 3D HR, [facility] MRCP GUERRIER. IV Contrast: None Oral Contrast: None Medications: None COMPLICATIONS: None FINDINGS: LOWER THORAX: Unremarkable. HEPATOBILIARY: No focal hepatic lesions. Minimal improvement in common bile duct dilatation now measuring 1.0 cm. Previously 1.2 cm. Abrupt cut off in the pancreatic head, possibly a pancreatic head lesion, distal common bile duct versus an ampullary lesion is again seen. This region measures roughly 1.4 x 1.8 cm (series 8, image 18). Mild intrahepatic biliary dilatation has improved but remains present. GALLBLADDER: Surgically absent. SPLEEN: No splenomegaly. PANCREAS: Pancreatic ductal dilatation remains unchanged measuring 4 to 5 mm in diameter. Previous 5 mm. ADRENALS: No adrenal nodules KIDNEYS/URETERS: No hydronephrosis. No cystic or solid mass lesions. No stones. GI TRACT: No abnormal distention, wall thickening, or evidence of bowel obstruction. Appendix is normal. LYMPH NODES: No lymphadenopathy. VESSELS: Unremarkable. PERITONEUM / RETROPERITONEUM: No free air or fluid. BONES: Small amount ascites. SOFT TISSUES: Unremarkable. IMPRESSION: 1. Slight improvement in the common bile duct dilatation. However, focal obstructive lesion in the distal common bile duct in the pancreatic head is again seen. Differential includes an intraductal colon carcinoma versus invasion by adjacent pancreatic head neoplasm. 2. Images are limited by motion artifact and lack of IV contrast. Signed by: Dr. Sp Palomo M.D. on 08/14/2018 1:27 PM
--- NOTE | 2018-08-14 16:46 | NUR ---
Nutrition Screen Note RD Recommendation for Physician: -Continue current diet as ordered Plan of Care: RD following, monitoring for tolerance and adequacy Nutrition reason for involvement: LOS Primary Diagnose(s): 1. Biliary leak, status post cholecystectomy, status post additional lysis, status post laparoscopic evacuation of bile. 2. Ascites, probably will need another paracentesis. PMH: jaundice, ascites, HTN, DM Ht: 70in Wt: 173.5lb BMI: 24.9kg/m2 IBW: 166lb RD Assessment: (08/14) Chart reviewed. Labs and meds reviewed. 77-year-old male, who comes in with biliary leak, status post laparoscopic evacuation of bile on 08/09. Visited pt in the room but pt was sleeping. Pt was discussed during rounds. MRI is scheduled for tomorrow to check for pancreatic mass. Per RN, pt has been eating well. PCT recorded 100% meal intake today. Will continue to monitor and follow. Please consult as needed. Current Diet: ADA 1800 diet Malnutrition Evaluation (08/14/2018) The patient does not meet criteria for a specified degree of malnutrition at this time. Will re-evaluate at follow-up as appropriate. Diet Education Needs Assessment: Diet education not indicated. Nutrition Care Level: low Signed: Viola Beaver, MS, RD, LD
[2018-08-14] MEDS: CEFTRIAXONE SOD 1 GM/NS 50 ML 50 ML IV SCH (17:40)
--- NOTE | 2018-08-14 23:50 | NUR ---
DR. Makayla RAMIREZ DOING ROUNDS. INFORMED MD OF PT TEMP. NEW ORDER RCV FOR PO TYLENOL 650MG ONCE.
[2018-08-15] VITALS (7 sets, daily range): BP systolic 123–165; BP diastolic 60–86
[2018-08-15] MEDS ORDERED: ACETAMINOPHEN 325 MG TAB ONE (00:17)
[2018-08-15 06:13] LABS: BASOPHILS % 0.3 % (0.0-1.0); EOSINOPHILS # (AUTO) 0.2 (0.0-0.4); EOSINOPHILS % 1.7 % (0.0-6.0); HEMATOCRIT 22.1 % (38.2-49.6); HEMOGLOBIN 7.6 g/dL (14.0-18.0); LYMPHOCYTES # (AUTO) 2.4 (1.0-3.2); LYMPHOCYTES % 26.6 % (18.0-39.1); MEAN CORPUSCULAR HEMOGLOBIN 29.3 pg (28-32); MEAN CORPUSCULAR HGB CONC 34.4 g/dL (31-35); MEAN CORPUSCULAR VOLUME 85.3 fL (81-99); MONOCYTES # (AUTO) 0.7 (0.2-0.8); MONOCYTES % 7.9 % (4.4-11.3); NEUTROPHILS # (AUTO) 5.4 (2.1-6.9); NEUTROPHILS % 61.5 % (38.7-80.0); PLATELET COUNT 256 x10e3/uL (140-360); RED BLOOD COUNT 2.59 x10e6/uL (4.3-5.7); RED CELL DISTRIBUTION WIDTH 13.8 % (11.7-14.4)
[2018-08-15 06:35] LABS: ALBUMIN 1.7 g/dL (3.5-5.0); ALBUMIN/GLOBULIN RATIO 0.4 (0.8-2.0); ANION GAP 11.2 mmol/L (8-16); CALCIUM 7.7 mg/dL (8.4-10.2); CREATININE, SERUM 1.72 mg/dL (0.72-1.25); POTASSIUM 4.2 mmol/L (3.5-5.1)
--- NOTE | 2018-08-15 07:00 | NUR ---
BEDSIDE ROUNDS COMPLETE NO DISTRESS NOTED, UPDATED ON POC VOICED UNDERSTANDING, DENIES PAIN AT THIS TIME,HERMAN DRAIN TO R ABDOMEN WITH SEROSANGUINEOUS FLUID, 2 BANDAIDS NOTED TO ABDOMEN C/D/I, NOTED R FA 20G NO SS OF INFILTRATION NOTED, NO OTHER CO VOCIED CALL LIGHT IN REACH WILL CONTINUE OT MONITOR
[2018-08-15] MEDS: INSULIN LISPRO 100 UNIT/1 ML 3ML VIAL SQ SCH ×4 (07:30→20:45)
[2018-08-15] MEDS: DOCUSATE SODIUM 100 MG CAP PO SCH ×2 (09:45→17:54)
[2018-08-15] MEDS: PANTOPRAZOLE 40 MG 10ML VIAL IV SCH ×2 (09:45→20:44)
[2018-08-15 11:15] LABS: EOSINOPHILS % (MANUAL) 3 % (0-7); LYMPHOCYTES % (MANUAL) 19 % (19-48); METAMYELOCYTES % (MANUAL) 1 % (0-0); MONOCYTES % (MANUAL) 7 % (3.4-9.0); MYELOCYTES % (MANUAL) 1 % (0-0); NEUTROPHILS % (MANUAL) 66 % (40-74); PROMYELOCYTES % (MANUAL) 1 % (0-0)
[2018-08-15 11:16] LABS: HYPOCHROMASIA MODERATE; PLATELET ESTIMATE ADEQUATE; PLATELET MORPHOLOGY COMMENT FEW LARGE; RBC MORPHOLOGY COMMENT NORMAL
[2018-08-15] MEDS ORDERED: ACETAMINOPHEN 325 MG TAB PO ONE (16:00)
[2018-08-15] MEDS: ACETAMINOPHEN 325 MG TAB PO PRN (16:06)
[2018-08-15] MEDS ORDERED: BISACODYL 10 MG SUPP PR NR (16:30)
[2018-08-15] MEDS: CEFTRIAXONE SOD 1 GM/NS 50 ML 50 ML IV SCH (17:55)
--- NOTE | 2018-08-15 19:09 | NUR ---
WALKING ROUNDS PERFORMED, RECEIVED PT LAYING SEMI FOWLERS IN BED, AAOX3, RR EVEN AND NON-LABORED, ON RA. NO S/SX OF DISTRESS NOTED. X2 TROCAR SITES NOTED TO BE CDI, HERMAN DRAIN TO (R) ABD NOTED TO BE INTACT DRAINING TO BULB SUCTION CLEAR SEROUS FLUID. LEFT PT LAYING SEMI FOWLERS IN BED, BED IN LOW LOCKED POSITION, SIDE RAILS UPX2, CALL LIGHT AND PHONE WITHIN REACH.
[2018-08-16] VITALS (7 sets, daily range): BP systolic 129–174; BP diastolic 72–93
[2018-08-16] MEDS ORDERED: ACETAMINOPHEN 325 MG TAB PO ONE
[2018-08-16 05:41] LABS: ALBUMIN 1.7 g/dL (3.5-5.0); ALBUMIN/GLOBULIN RATIO 0.4 (0.8-2.0); ANION GAP 11.7 mmol/L (8-16); CREATININE, SERUM 1.67 mg/dL (0.72-1.25); POTASSIUM 4.7 mmol/L (3.5-5.1)
--- NOTE | 2018-08-16 07:20 | NUR ---
BEDSIDE ROUNDS COMPLETE NO DISTRESS NOTED, UPDATED ON POC VOICED UNDERSTANDING, CO PAIN 5/10 TO ABDOMEN OFFERED PRN PAIN MEDICATIONS, PT REFUSED, R FA 20G NO SS OF INFILTRATION NOTED, NO OTHER CO VOICED CALL LIGHT IN REACH WILL CONTINUE TO MONITOR
[2018-08-16] MEDS: INSULIN LISPRO 100 UNIT/1 ML 3ML VIAL SQ SCH ×4 (07:30→21:50)
[2018-08-16] MEDS: DOCUSATE SODIUM 100 MG CAP PO SCH ×2 (08:55→17:45)
[2018-08-16] MEDS: PANTOPRAZOLE 40 MG 10ML VIAL IV SCH ×2 (08:55→21:50)
--- NOTE | 2018-08-16 08:58 | Diagnostic Imaging Report ---
EXAM: Abdomen 3 Views INDICATION: ^abdominal distention ^[id number] ^[id number] COMPARISON: MRCP 08/14/2018 and KUB 08/11/2018 FINDINGS: Lines/tubes: CBD stent in place. Right upper quadrant drain remains unchanged in position. Moderate amount of stool in the colon. Nonspecific mild distention of multiple loops of the small and large bowel without obstruction. No renal calculi. No abnormal soft tissue masses. Moderate degenerative changes in the lumbar spine and pelvis. Severe wedge compression deformity of T12 is unchanged. IMPRESSION: Mildly prominent loops of small and large bowel without obstructive bowel gas pattern. Signed by: Dr. Delores Lynch M.D. on 08/16/2018 8:54 AM
--- NOTE | 2018-08-16 14:59 | Diagnostic Imaging Report ---
EXAM: Complete Abdominal Ultrasound INDICATION: ^ascites ^[id number] ^[id number] ^Y COMPARISON: KUB 6 04/18/2018 and MRCP 08/14/2018 TECHNIQUE: Transverse and longitudinal images of the upper abdomen were obtained. FINDINGS: Liver: Size: 17.5 cm in the right midclavicular line, mild increased Appearance: Normal echogenicity, smooth contour Mass: No focal masses Spleen: Size: 14.5 cm in length, increased Echogenicity: Normal Mass: No focal masses Gallbladder: Cholecystectomy. Bile Ducts: Intrahepatic Ducts: No dilatation Extrahepatic Ducts: Common bile duct measures 0.3 cm, no dilatation Pancreas: Visualized portions of the pancreatic head, neck and proximal body are normal. Kidneys: Length: Right 10.9 cm Left 11.1 cm Echogenicity: Normal Collecting System: No hydronephrosis Stone: None Cyst/Mass: None Vessels: Aorta: Visualized portions are normal Inferior Vena Cava: Visualized portions are normal Main Portal Vein: 0.9 cm, normal size with hepatopetal flow. Free Fluid: Trace amount of ascites in the right upper and left upper quadrant surrounding the liver and spleen. No pleural effusion IMPRESSION: Mild hepatosplenomegaly. Trace amount of ascites. Signed by: Dr. Delores Lynch M.D. on 08/16/2018 2:55 PM
[2018-08-16] MEDS: ACETAMINOPHEN 325 MG TAB PO PRN (17:45)
[2018-08-16] MEDS: CEFTRIAXONE SOD 1 GM/NS 50 ML 50 ML IV SCH (17:46)
--- NOTE | 2018-08-16 18:42 | Progress Note ---
DATE: 08/16/2018 SUBJECTIVE: Denied any dyspnea. Still has some abdominal distention. Noted to have stent placement for biliary leak. Remains on ceftriaxone. OBJECTIVE: GENERAL: Lying in bed, no distress. VITAL SIGNS: Temperature is 100.1, pulse 109, and blood pressure 164/72. CHEST: Clear. ABDOMEN: Slightly distended. No definite tenderness. EXTREMITIES: No edema. NEUROLOGIC: Alert, appropriate. LABORATORY DATA: White count is 11,000. K is 4.7, serum CO2 29, creatinine 1.67, and BUN is 16. Albumin is low as expected at 1.7. ASSESSMENT: 1. Acute tubular necrosis, improving, currently volume status seems reasonable. 2. Hypertension. 3. Underlying diabetes. He probably has some element of diabetic nephropathy and chronic kidney disease with given the proteinuria on UA. PLAN: From renal standpoint, continue supportive care. Avoid nephrotoxins. A.m. labs. No emergent need for dialysis. We will follow along. MD JONNY Cardenas/STARR /[id number]
[2018-08-17] VITALS (8 sets, daily range): BP systolic 116–166; BP diastolic 56–79
[2018-08-17] MEDS ORDERED: BISACODYL 5 MG TAB EC PO ONE ×3 (00:30→01:30)
[2018-08-17] MEDS ORDERED: ALBUMIN 25% 12.5GM 0.25 GM/ML BTL IV ONE (00:30)
[2018-08-17] MEDS ORDERED: HYDROCODONE/APAP 7.5MG-325MG 1 EA TAB PO PRN (04:00)
[2018-08-17 06:01] LABS: MAGNESIUM 1.3 MG/DL (1.3-2.1)
[2018-08-17] MEDS: METOCLOPRAMIDE HCL 10 MG/2ML VIAL IV SCH ×4 (06:16→23:10)
[2018-08-17 06:48] LABS: ALBUMIN 2.5 g/dL (3.5-5.0); ALBUMIN/GLOBULIN RATIO 0.9 (0.8-2.0); ANION GAP 13.1 mmol/L (8-16); CALCIUM 7.8 mg/dL (8.4-10.2); CREATININE, SERUM 1.55 mg/dL (0.72-1.25); POTASSIUM 4.1 mmol/L (3.5-5.1)
[2018-08-17 06:49] LABS: FOLATE 7.8 ng/mL (7.0-15.4)
[2018-08-17 07:08] LABS: FERRITIN 1660.07 ng/mL (21.81-274.66)
[2018-08-17] MEDS: INSULIN LISPRO 100 UNIT/1 ML 3ML VIAL SQ SCH ×4 (08:28→21:19)
[2018-08-17] MEDS: PANTOPRAZOLE 40 MG 10ML VIAL IV SCH ×2 (08:29→21:19)
[2018-08-17] MEDS: DOCUSATE SODIUM 100 MG CAP PO SCH ×2 (08:29→16:20)
--- NOTE | 2018-08-17 08:29 | NUR ---
c/o abdominal pain 07/18. Refuses PRN pain medication at this time. Will continue to monitor.
[2018-08-17] MEDS: IRON SUCROSE 100 MG in SODIUM CHLORIDE 0.9% 100 ML 100 ML IV SCH (10:30)
[2018-08-17] MEDS ORDERED: SODIUM CHLORIDE 0.9% 250ML 250 ML ONE (10:39)
[2018-08-17] MEDS: CEFTRIAXONE SOD 1 GM/NS 50 ML 50 ML IV SCH (16:20)
--- NOTE | 2018-08-17 19:15 | NUR ---
WALKING ROUNDS PERFORMED. RECEIVED PT LAYING IN BED, AAOX3, RR EVEN AND NON-LABORED. NO S/SX OF DISTRESS NOTED. TROCAR SITES X2 NOTED, HERMAN DRAIN TO RIGHT ABD NOTED, CLEAR SEROUS FLUID NOTED. AT BED SIDE. BED IN LOW/LOCKED. SIDE RAILS UPX2, CALL LIGHT WITHIN REACH. CONTINUE TO MONITOR CLOSELY
--- NOTE | 2018-08-17 19:23 | NUR ---
Report given to oncoming nurse of patient's status. No s/s of acute distress noted. at bedside.
[2018-08-17] MEDS: ACETAMINOPHEN 325 MG TAB PO PRN (22:06)
[2018-08-18] VITALS (9 sets, daily range): BP systolic 103–163; BP diastolic 52–84
--- NOTE | 2018-08-18 05:30 | NUR ---
NOTIFIED DR WATERS PATIENT HAD A PRESSURE ULCER STAGE 2 TO SACRUM. NEW ORDER RECEIVED
[2018-08-18] MEDS: METOCLOPRAMIDE HCL 10 MG/2ML VIAL IV SCH ×3 (05:49→16:42)
[2018-08-18 06:17] LABS: BASOPHILS % 0.2 % (0.0-1.0); EOSINOPHILS # (AUTO) 0.1 (0.0-0.4); EOSINOPHILS % 0.8 % (0.0-6.0); HEMATOCRIT 20.3 % (38.2-49.6); LYMPHOCYTES # (AUTO) 2.4 (1.0-3.2); LYMPHOCYTES % 20.9 % (18.0-39.1); MEAN CORPUSCULAR HEMOGLOBIN 29.7 pg (28-32); MEAN CORPUSCULAR HGB CONC 34.5 g/dL (31-35); MONOCYTES # (AUTO) 0.8 (0.2-0.8); MONOCYTES % 7.2 % (4.4-11.3); NEUTROPHILS # (AUTO) 7.8 (2.1-6.9); NEUTROPHILS % 69.2 % (38.7-80.0); PLATELET COUNT 273 x10e3/uL (140-360); RED BLOOD COUNT 2.36 x10e6/uL (4.3-5.7); RED CELL DISTRIBUTION WIDTH 14.1 % (11.7-14.4)
--- NOTE | 2018-08-18 06:20 | NUR ---
PAGED DR WATERS FOR CRITICAL HCT 20.3. AWAITING FOR MD TO CALL BACK
[2018-08-18 06:50] LABS: ALBUMIN 2.1 g/dL (3.5-5.0); ALBUMIN/GLOBULIN RATIO 0.6 (0.8-2.0); ANION GAP 11.6 mmol/L (8-16); CALCIUM 8.1 mg/dL (8.4-10.2); CREATININE, SERUM 1.62 mg/dL (0.72-1.25); POTASSIUM 3.6 mmol/L (3.5-5.1)
--- NOTE | 2018-08-18 07:00 | NUR ---
DR WATERS ORDERED TO KEEP MONITOR PATIENT FOR HCT 20.3 AND CHECK CBC AND BMP NEXT AM
--- NOTE | 2018-08-18 07:32 | NUR ---
RECEIVED PATIENT ASLEEP IN BED NO SIGNS OF DISTRESS. BED LOW, WHEELS LOCKED, SIDE RAILS X2. CALL LIGHT IN REACH. WILL CONTINUE TO MONITOR PATIENT.
--- NOTE | 2018-08-18 08:43 | NUR ---
IMM EXPLAINED TO PT, PT REQUEST SIGN FOR HIM, SIGNED AND PLACED ON CHART COPY TO PT IN CARE TRANSITIONS FOLDER
[2018-08-18] MEDS: DOCUSATE SODIUM 100 MG CAP PO SCH ×2 (09:00→16:55)
[2018-08-18] MEDS: BALSAM PERU/CASTOR OIL 60 GM OINT...G. TP SCH ×2 (09:00→12:00)
[2018-08-18] MEDS: IRON SUCROSE 100 MG in SODIUM CHLORIDE 0.9% 100 ML 100 ML IV SCH (09:04)
[2018-08-18] MEDS: PANTOPRAZOLE 40 MG 10ML VIAL IV SCH ×2 (09:04→20:42)
[2018-08-18] MEDS: INSULIN LISPRO 100 UNIT/1 ML 3ML VIAL SQ SCH ×4 (09:09→21:00)
[2018-08-18 09:12] LABS: BILIRUBIN,URINE SMALL (NEGATIVE); CLARITY,URINE CLEAR (CLEAR); COLOR,URINE YELLOW (YELLOW); KETONES,URINE NEGATIVE (NEGATIVE); LEUKOCYTE ESTERASE ,URINE TRACE (NEGATIVE); NITRITE,URINE NEGATIVE (NEGATIVE); PROTEIN,URINE DIPSTICK 2+ (NEGATIVE); URINE UROBILINOGEN 0.2 mg/dL (0.2 - 1)
[2018-08-18 09:42] LABS: BACTERIA,URINE RARE /HPF; EPITHELIAL CELLS,URINE RARE /LPF; RBC,URINE 0-5 /HPF (0-5)
--- NOTE | 2018-08-18 09:45 | NUR ---
PATIENT A/O X3, EVEN RESPIRATIONS ON RA. LUNG SOUNDS CLEAR TO AUSCULTATION. PATIENT TOLERATED SMALL AMOUNT OF EGGS AND FRUIT FOR BREAKFAST. RIGHT FA 20 GAUGE SL INTACT AND PATENT. BOWEL SOUNDS ACTIVE, ABDOMEN DISTENDED BUT SOFT. HERMAN DRAIN IN PLACE ON LEFT SIDE, DRAINAGE YELLOW. NO DISCOMFORT AT THIS TIME. CALL LIGHT IN REACH. AT BEDSIDE, WILL CONTINUE TO MONITOR.
--- NOTE | 2018-08-18 12:20 | NUR ---
WOUND CARE CONSULTATION - INITIAL EVALUATION Patient admitted from home to ER Ascites, S/P Acute Cholecystitis on 07/04/[address] Howell. . Paracentesis presented with bile content. Sx procedure performed by Dr. Vern Francisco to address Leak, performed stent placement during this hospitalization stay. HERMAN Drain to Right Lat Abdomen. HX: DM, HTN, CKD. LABS: WBC:11.3 HGB:7 HCT20.3 NEUT%69.2 ALB2.1 WC Consulted for sacral wound evaluation and treatment recommendation. Noted- Venelex q6h or MAR. PATIENT VISIT: Patient AAOX4, ,calm and cooperative. States he has wound to his bottom and has been there for about 2 weeks. Area tender. Patient able to turn self without assistance. Wai Score [address] Conservative PUP active Sacrococcygeal area presents with oval shaped ulceration, partial thickness with 90% slough and 10% granulation. Wound appears to be stalled. Periwound slightly raised with redness and pink coloration. Unable to determine depth due to yellow tissue. HERMAN drain to right lateral abdomen. Bulb compressed with small amount of clear pink tinged fluid noted. No other pressure related injuries identified during this visit. IMPRESSION: Sacral - Unstageable Pressure Ulcer - Present On Admission. RECOMMENDATION: D/C Venelex. 1. Alternating Pressure Air Mattress and set to patient current weight. 2. Sacral - Unstageable- Pressure Ulcer - POA. - Cleanse wound with NS and 4x4 gauze. - Apply Santyl and Cover with Xeroform and Allevyn Foam Dressing Daily 3. Encourage Out of Bed Activity. 4. Turn and Reposition every 2 hours using repositioning wedges or pillow assist. 5. Offload heels with pillows while in bed. Thank you for consulting with Wound Care. Addendum: 08/18/18 at 1241 by Solo Calderon RN Amended: Links added.
--- NOTE | 2018-08-18 13:55 | NUR ---
WOUND CARE PERFORMED. CLEANSED SACRUM WITH NS AND 4X4 GAUZE. APPLIED SANTYL AND COVERED WITH XEROFORM. APPLIED ALLEVYN FOAM DRESSING. ALT PRESSURE MATTRESS APPLIED.
--- NOTE | 2018-08-18 15:00 | NUR ---
Contacted Dr. Hannah regarding plan of care for pt. Awaiting response.
[2018-08-18] MEDS: CEFTRIAXONE SOD 1 GM/NS 50 ML 50 ML IV SCH (17:18)
[2018-08-18] MEDS ORDERED: MAGNESIUM SULFATE 2GM/50ML 50 ML IV ONE (18:00)
[2018-08-18] MEDS ORDERED: SODIUM CHLORIDE 0.9% 250ML 250 ML IV ONE (18:00)
--- NOTE | 2018-08-18 18:05 | NUR ---
IV SITE RED. REMOVED IV AND NEW 20 GAUGE IV STARTED TO RIGHT FA.
--- NOTE | 2018-08-18 20:44 | NUR ---
DRESSING DRY AND INTACT TO THE ABDOMEN WITH HERMAN DRAIN INTACT, PATIENT DENIES PAIN. ABDOMEN LARGE AND SOFT WITH BOWEL SOUNDS PRESENT. NO RESPIRATORY DISTRESS OBSERVED, HE DENIES PAIN. AWAITING TYPE AND CROSS MATCH TO ADMINISTER BLOOD TRANSFUSION ORDERED. CALL LIGHT WITHIN EASY REACH, HIS IS AT THE BEDSIDE AND HE'S INSTRUCTED TO CALL FOR ASSISTANCE NEEDED.
[2018-08-18] MEDS: ACETAMINOPHEN 325 MG TAB PO PRN (22:06)
--- NOTE | 2018-08-18 22:06 | NUR ---
BLOOD IS READY TO BE TRANSFUSE, PATIENT HAS AN ELEVATED TEMPERATURE OF 100.8. TYLENOL ADMINISTERED ORDERED, WILL REASSESS THE TEMPERATURE WITHIN AN HOUR.
[2018-08-18] MEDS ORDERED: SODIUM CHLORIDE 0.9% 250ML 250 ML ONE (23:32)
[2018-08-19] VITALS (8 sets, daily range): BP systolic 133–168; BP diastolic 73–90
--- NOTE | 2018-08-19 00:06 | NUR ---
FIRST UNIT OF BLOOD TRANSFUSION STARTED AT 2335, PRIMARY NURSE STAYED WITH THE PATIENT FOR THE FIRST 15 MINUTES PER PROTOCOL. NO ADVERSE EFFECT NOTED AND HE DENIES PAIN. WILL CONTINUE TO CLOSELY MONITOR THIS PATIENT.
[2018-08-19] MEDS ORDERED: SODIUM CHLORIDE 0.9% 250ML 250 ML ONE (02:40)
--- NOTE | 2018-08-19 03:08 | NUR ---
FIRST UNIT OF BLOOD TRANSFUSION COMPLETED EARLIER WITHOUT ADVERSE EFFECT, THE SECOND UNIT HAS BEEN STARTED AND NO ADVERSE EFFECT OBSERVED. PATIENT CONDITION STABLE WITHOUT RESPIRATORY DISTRESS, HE DENIES PAIN. CALL LIGHT WITHIN EASY REACH, WILL CONTINUE TO MONITOR.
--- NOTE | 2018-08-19 06:12 | NUR ---
SECOND UNIT OF BLOOD TRANSFUSION COMPLETED AT 0520, NO ADVERSE EFFECT NOTED. ABDOMEN REMAINS LARGE AND SOFT, HE DENIES ABDOMINAL PAIN. CALL LIGHT WITHIN EASY REACH, HE'S INSTRUCTED TO CALL FOR ASSISTANCE NEEDED.
[2018-08-19] MEDS: METOCLOPRAMIDE HCL 10 MG/2ML VIAL IV SCH ×5 (06:41→23:34)
--- NOTE | 2018-08-19 06:43 | NUR ---
DR. BARRON SAW THE PATIENT, HE REMOVED THE HERMAN DRAIN. PRESSURE DRESSING APPLIED TO THE SITE, NO ACUTE DISTRESS OBSERVED.
--- NOTE | 2018-08-19 07:19 | NUR ---
RECEIVED PATIENT RESTING IN BED NO S/S OF DISTRESS. BED LOW, WHEELS LOCKED, SIDE RAILS X2. CALL LIGHT IN REACH WILL CONTINUE TO MONITOR PATIENT.
[2018-08-19 08:36] LABS: BASOPHILS # (AUTO) 0.1 (0.0-0.1); BASOPHILS % 0.5 % (0.0-1.0); EOSINOPHILS # (AUTO) 0.2 (0.0-0.4); EOSINOPHILS % 1.3 % (0.0-6.0); HEMATOCRIT 26.9 % (38.2-49.6); HEMOGLOBIN 9.1 g/dL (14.0-18.0); LYMPHOCYTES # (AUTO) 2.7 (1.0-3.2); MEAN CORPUSCULAR HEMOGLOBIN 29.2 pg (28-32); MEAN CORPUSCULAR HGB CONC 33.8 g/dL (31-35); MEAN CORPUSCULAR VOLUME 86.2 fL (81-99); MONOCYTES # (AUTO) 0.7 (0.2-0.8); MONOCYTES % 5.8 % (4.4-11.3); NEUTROPHILS # (AUTO) 8.1 (2.1-6.9); NEUTROPHILS % 67.6 % (38.7-80.0); PLATELET COUNT 291 x10e3/uL (140-360); RED BLOOD COUNT 3.12 x10e6/uL (4.3-5.7); RED CELL DISTRIBUTION WIDTH 14.3 % (11.7-14.4)
[2018-08-19 08:48] LABS: ALBUMIN 2.1 g/dL (3.5-5.0); ALBUMIN/GLOBULIN RATIO 0.4 (0.8-2.0); ANION GAP 12.3 mmol/L (8-16); CALCIUM 8.6 mg/dL (8.4-10.2); CREATININE, SERUM 1.64 mg/dL (0.72-1.25); POTASSIUM 4.3 mmol/L (3.5-5.1)
--- NOTE | 2018-08-19 09:00 | NUR ---
PATIENT A/O X3, EVEN RESPIRATIONS ON RA. LUNG SOUNDS CLEAR TO AUSCULTATION. BOWEL SOUNDS ACTIVE. NO EDEMA. RIGHT FA IV SALINE LOCKED, INTACT AND PATENT. AT BEDSIDE. ENCOURAGED PATIENT TO AMBULATE. PATIENT TOLERATED BREAKFAST WELL, NO N/V. CALL LIGHT IN REACH WILL CONTINUE TO MONITOR PATIENT.
[2018-08-19] MEDS: SPIRONOLACTONE 25 MG TAB PO SCH ×2 (09:19→16:26)
[2018-08-19] MEDS: PANTOPRAZOLE 40 MG 10ML VIAL IV SCH ×2 (09:19→20:03)
[2018-08-19] MEDS: COLLAGENASE 5 GM TUBE TOP SCH (09:19)
[2018-08-19] MEDS: IRON SUCROSE 100 MG in SODIUM CHLORIDE 0.9% 100 ML 100 ML IV SCH (09:19)
[2018-08-19] MEDS: DOCUSATE SODIUM 100 MG CAP PO SCH ×2 (09:19→16:26)
[2018-08-19] MEDS: INSULIN LISPRO 100 UNIT/1 ML 3ML VIAL SQ SCH ×4 (09:21→20:04)
[2018-08-19] MEDS ORDERED: ONDANSETRON HCL 4 MG ORAL DISINTEGRATING TAB PO PRN (10:45)
--- NOTE | 2018-08-19 10:52 | NUR ---
PATIENT LEFT TO RADIOLOGY AT THIS TIME VIA WHEELCHAIR.
--- NOTE | 2018-08-19 11:32 | NUR ---
PATIENT BACK FROM RADIOLOGY AT THIS TIME. CALL LIGHT IN REACH. WILL CONTINUE TO MONITOR PATIENT.
--- NOTE | 2018-08-19 14:17 | Diagnostic Imaging Report ---
EXAMINATION: MRI Abdomen without contrast/MRCP. TECHNIQUE: Axial T1 nonfat sat in and out of phase, axial T2 fat sat, coronal T2 with and without fat sat, axial DWI and ADC MR images of the abdomen were obtained. No intravenous gadolinium was administered. Heavily T2-weighted MRCP images were also performed, including thick and thin slab MRCP ASSETT and 3-D reconstructions. CLINICAL HISTORY:Reassess pancreatic mass COMPARISON: MRI abdomen/MRCP 08/14/2018 FINDINGS: Lack of gadolinium decreases sensitivity for detection of intra-abdominal pathology. Exam limited by breathing motion artifact. LOWER THORAX: Small right-sided pleural effusion and associated atelectasis.. LIVER: The hepatic contour is normal.. No hepatic signal abnormality. Stable 1.2 cm T2 hyperintense lesion in hepatic segment I (series 6, image 13), likely representing a small cyst. No other focal T2 hyperintense hepatic lesions. BILIARY: No interval change in mild central intrahepatic biliary ductal dilation. No significant interval change in the mild to moderate dilation of the common bile duct, which measures approximately 1.0 cm at the allyson hepatis (series 8, image 27). No intraluminal filling defects. There is persistent abrupt cut off of the distal common bile duct at the pancreatic head (series 6, images 27 and 28). Gallbladder is absent.. PANCREAS: No significant interval change in dilation of the pancreatic duct which measures approximately 5.5 mm at the pancreatic neck. There is decreased caliber of the distal pancreatic duct at the periampullary region, measuring approximately 3 mm. No definite focal lesion is identified. SPLEEN: No splenomegaly. ADRENALS: No nodules. KIDNEYS: No hydronephrosis in the imaged portion of the kidneys. Stable 1.9 cm T2 hyperintense, well-circumscribed lesion in the right anterior mid to inferior aspect (series 6, image 35), likely representing a simple cyst PERITONEUM / RETROPERITONEUM: Slight interval increase of perihepatic and intra-abdominal ascites. GI TRACT: No bowel dilation. LYMPH NODES: No upper abdominal lymphadenopathy. VESSELS: Normal flow voids are identified.. . . BONES AND SOFT TISSUES: No abnormal bone marrow signal. Degenerative changes in the lumbar spine, with slight rightward curvature. Soft tissues are grossly unremarkable. IMPRESSION: 1. Exam limited by lack of intravenous contrast and breathing motion artifact. 2. No significant interval change in mild to moderate dilation of the common bile duct, mild central intrahepatic biliary ductal dilation and mild dilation of the pancreatic duct. There is persistent abrupt cut off of the distal common bile duct at the pancreatic head near the ampulla. Given the pancreatic ductal dilation, a pancreatic head mass or ampullary mass is still suspected. No biliary intraluminal filling defects are noted to suspect choledocholithiasis. 3. Slight interval increase of perihepatic and intra-abdominal ascites. 4. Small right-sided pleural effusion and associated atelectasis. Signed by: Dr. Francisco Ruggiero M.D. on 08/19/2018 2:14 PM
[2018-08-19] MEDS: METRONIDAZOLE 500MG/NS 100ML 100 ML IV SCH ×3 (16:00→23:34)
[2018-08-19] MEDS: LEVOFLOXACIN 500MG/D5W 100ML 100 ML IV SCH (17:36)
[2018-08-19] MEDS: CEFTRIAXONE SOD 1 GM/NS 50 ML 50 ML IV SCH (18:47)
[2018-08-19 19:27] LABS: BASOPHILS % 0.3 % (0.0-1.0); EOSINOPHILS # (AUTO) 0.1 (0.0-0.4); EOSINOPHILS % 1.4 % (0.0-6.0); HEMATOCRIT 24.9 % (38.2-49.6); HEMOGLOBIN 8.5 g/dL (14.0-18.0); LYMPHOCYTES # (AUTO) 2.3 (1.0-3.2); LYMPHOCYTES % 22.2 % (18.0-39.1); MEAN CORPUSCULAR HEMOGLOBIN 29.1 pg (28-32); MEAN CORPUSCULAR HGB CONC 34.1 g/dL (31-35); MEAN CORPUSCULAR VOLUME 85.3 fL (81-99); MONOCYTES # (AUTO) 0.7 (0.2-0.8); MONOCYTES % 6.3 % (4.4-11.3); PLATELET COUNT 261 x10e3/uL (140-360); RED BLOOD COUNT 2.92 x10e6/uL (4.3-5.7); RED CELL DISTRIBUTION WIDTH 14.1 % (11.7-14.4)
[2018-08-19 19:43] LABS: BILIRUBIN,DIRECT 1.8 mg/dL (0.0-0.5)
[2018-08-20] VITALS (8 sets, daily range): BP systolic 143–163; BP diastolic 64–97
[2018-08-20] MEDS: METRONIDAZOLE 500MG/NS 100ML 100 ML IV SCH ×5 (00:49→23:50)
[2018-08-20] MEDS: METOCLOPRAMIDE HCL 10 MG/2ML VIAL IV SCH ×4 (05:07→23:50)
[2018-08-20 05:30] LABS: BASOPHILS % 0.3 % (0.0-1.0); EOSINOPHILS # (AUTO) 0.2 (0.0-0.4); EOSINOPHILS % 1.4 % (0.0-6.0); HEMATOCRIT 25.3 % (38.2-49.6); HEMOGLOBIN 8.4 g/dL (14.0-18.0); LYMPHOCYTES % 26.8 % (18.0-39.1); MEAN CORPUSCULAR HEMOGLOBIN 28.9 pg (28-32); MEAN CORPUSCULAR HGB CONC 33.2 g/dL (31-35); MEAN CORPUSCULAR VOLUME 86.9 fL (81-99); MONOCYTES # (AUTO) 0.7 (0.2-0.8); MONOCYTES % 6.1 % (4.4-11.3); NEUTROPHILS # (AUTO) 7.1 (2.1-6.9); NEUTROPHILS % 63.9 % (38.7-80.0); PLATELET COUNT 243 x10e3/uL (140-360); RED BLOOD COUNT 2.91 x10e6/uL (4.3-5.7); RED CELL DISTRIBUTION WIDTH 13.9 % (11.7-14.4)
[2018-08-20 06:58] LABS: ALBUMIN/GLOBULIN RATIO 0.5 (0.8-2.0); CALCIUM 8.2 mg/dL (8.4-10.2); CREATININE, SERUM 1.5 mg/dL (0.72-1.25)
--- NOTE | 2018-08-20 07:10 | NUR ---
BEDSIDE ROUNDS COMPLETE NO DISTRESS NOTED, UPDATED ON POC VOICED UNDERSTANDING, DENIES PAIN AT THIS TIME, 2 TROCHAR SITES TO ABDOMEN C/D/I, DSG TO R SIDE ABDOMEN C/D/I, DSG TO BUTTOCKS C/D/I, R FA 20G NO SS OF INFILTRATION NOTED, NO OTHER CO VOICED CALL LIGHT IN REACH WILL CONTINUE OT MONITOR
[2018-08-20] MEDS: INSULIN LISPRO 100 UNIT/1 ML 3ML VIAL SQ SCH ×4 (07:30→20:39)
--- NOTE | 2018-08-20 08:56 | NUR ---
SPOKE WITH PT AND PLAN IS DISCHARGE HOME TOMORROW IF PT GETS "ENOUGH CALORIES IN TODAY" ATE 90% OF BKFST PT WALKING IN ROOM REFUSES PHYSICAL THERAPY IMM EXPLAINED, SIGNED AND PLACED ON CHART COPY TO PT IN CARE TRANSITIONS FOLDER
[2018-08-20] MEDS: SPIRONOLACTONE 25 MG TAB PO SCH (09:15)
[2018-08-20] MEDS: DOCUSATE SODIUM 100 MG CAP PO SCH ×2 (09:15→17:50)
[2018-08-20] MEDS: IRON SUCROSE 100 MG in SODIUM CHLORIDE 0.9% 100 ML 100 ML IV SCH (09:15)
[2018-08-20] MEDS: PANTOPRAZOLE 40 MG 10ML VIAL IV SCH ×2 (09:15→20:43)
[2018-08-20] MEDS: COLLAGENASE 5 GM TUBE TOP SCH (11:35)
[2018-08-20] MEDS: CEFTRIAXONE SOD 1 GM/NS 50 ML 50 ML IV SCH (17:50)
[2018-08-20] MEDS: LEVOFLOXACIN 500MG/D5W 100ML 100 ML IV SCH (18:20)
--- NOTE | 2018-08-20 19:13 | NUR ---
Received bedside shift report from day shift RN. Patient is not in distress. Side rails up x2, bed low, wheels lock and call light within reach. Patient reported no pain.
[2018-08-21] VITALS (8 sets, daily range): BP systolic 126–161; BP diastolic 62–81
[2018-08-21] MEDS: ACETAMINOPHEN 325 MG TAB PO PRN (00:31)
[2018-08-21] MEDS: METRONIDAZOLE 500MG/NS 100ML 100 ML IV SCH ×3 (05:17→18:23)
[2018-08-21 05:55] LABS: BASOPHILS % 0.3 % (0.0-1.0); EOSINOPHILS # (AUTO) 0.2 (0.0-0.4); EOSINOPHILS % 1.9 % (0.0-6.0); HEMATOCRIT 24.1 % (38.2-49.6); LYMPHOCYTES # (AUTO) 2.4 (1.0-3.2); LYMPHOCYTES % 25.4 % (18.0-39.1); MEAN CORPUSCULAR HEMOGLOBIN 29.2 pg (28-32); MEAN CORPUSCULAR HGB CONC 33.2 g/dL (31-35); MONOCYTES # (AUTO) 0.6 (0.2-0.8); MONOCYTES % 6.3 % (4.4-11.3); NEUTROPHILS # (AUTO) 6.1 (2.1-6.9); NEUTROPHILS % 64.1 % (38.7-80.0); PLATELET COUNT 257 x10e3/uL (140-360); RED BLOOD COUNT 2.74 x10e6/uL (4.3-5.7); RED CELL DISTRIBUTION WIDTH 14.4 % (11.7-14.4)
[2018-08-21 06:34] LABS: ALBUMIN 1.9 g/dL (3.5-5.0); ALBUMIN/GLOBULIN RATIO 0.5 (0.8-2.0); CREATININE, SERUM 1.44 mg/dL (0.72-1.25)
--- NOTE | 2018-08-21 06:54 | Progress Note ---
DATE: 08/21/2018 SUBJECTIVE: The patient is a 77-year-old gentleman with a history of biliary leak, status post drain tubes, which has been discontinued. The patient is tolerating p.o. No nausea or vomiting. Negative bowel movements. Positive for bowel sounds. The patient also has started to eat about 80% of his meals. MEDICATIONS: He is on Rocephin, hydrocodone for pain, insulin sliding scale, iron sucrose, and Flagyl. The patient is also on Reglan for nausea and vomiting. OBJECTIVE: VITAL SIGNS: Temperature is 98.1, T-max 100.5 on at 2400, blood pressure is 137/65, pulse oximetry of 96%. HEENT: Normocephalic, atraumatic. Positive for icterus. CVS: S1, S2 normal. Regular rate and rhythm. LUNGS: Decreased air entry in lung bases. Positive for crackles. ABDOMEN: Protuberant. Fluid present, but no fluid thrill present. EXTREMITIES: No clubbing. No cyanosis. Positive for some edema. LABORATORY DATA: Laboratory values are pending today, but yesterday's hemoglobin is 8.4, hematocrit 25.3, and no left shift present. Chemistries pending again. BUN was 18 yesterday, creatinine of 1.50. ALT and AST normal. Total bilirubin is 2.7. The patient's CA-19-9 antigen was elevated. Glucoses have been running in the 200s to 387 max. ASSESSMENT: A 77-year-old gentleman with: 1. Biliary leak. 2. Obstructive jaundice. 3. CBD stent. 4. History of CA-19-9 elevation with possible obstruction versus carcinoma of the head of the pancreas. The patient will need an EUS as an outpatient basis. This has to be set up. We will coordinate with Dr. Michael Porras and have this set up at [facility] and also with MD Hurtado. 5. Acute kidney injury, which is better. 6. Hypertension. Continue on CV medication. 7. Anemia. The patient is on iron sucrose, and creatinine is trending better. Further recommendation, per clinical course. Discharge planning pending on appointments with the specialists at [facility]. Further recommendation per clinical course. We will talk with Dr. Michael Porras on discharge. MD LILIAN Urrutia/STARR /[id number]
[2018-08-21] MEDS: METOCLOPRAMIDE HCL 10 MG/2ML VIAL IV SCH ×3 (06:55→18:23)
--- NOTE | 2018-08-21 07:10 | NUR ---
pt alert resp even and unlabored at this time no distress noted, pt able to make needs known, pt sitting upright at bedside, call light in reach.
[2018-08-21] MEDS: DOCUSATE SODIUM 100 MG CAP PO SCH ×2 (09:14→17:37)
[2018-08-21] MEDS: PANTOPRAZOLE 40 MG 10ML VIAL IV SCH ×2 (09:14→21:02)
[2018-08-21] MEDS: INSULIN LISPRO 100 UNIT/1 ML 3ML VIAL SQ SCH ×4 (09:17→21:04)
[2018-08-21] MEDS: IRON SUCROSE 100 MG in SODIUM CHLORIDE 0.9% 100 ML 100 ML IV SCH (09:45)
[2018-08-21] MEDS: COLLAGENASE 5 GM TUBE TOP SCH (12:06)
--- NOTE | 2018-08-21 14:32 | NUR ---
Nutrition Follow-up Note RD Recommendation for Physician: -Continue current diet as ordered -Continue Glucerna TID as ordered Plan of Care: RD following, monitoring for tolerance and adequacy Nutrition reason for involvement: Follow up Primary Diagnose(s): 1. Biliary leak, status post cholecystectomy, status post additional lysis, status post laparoscopic evacuation of bile. 2. Ascites, probably will need another paracentesis. PMH: jaundice, ascites, HTN, DM Ht: 70in Wt: 173.5lb; 172lb BMI: 24.9kg/m2 IBW: 166lb RD Assessment: (08/21) Visited pt in the room. Pt reported fair appetite. Pt drank most of the Glucerna ordered. No complains of nausea or vomiting. Pt complained of constipation and laxatives were given. Pt denied any chewing or swallowing difficulty. Will continue to monitor and follow. (08/14) Chart reviewed. Labs and meds reviewed. 77-year-old male, who comes in with biliary leak, status post laparoscopic evacuation of bile on 08/09. Visited pt in the room but pt was sleeping. Pt was discussed during rounds. MRI is scheduled for tomorrow to check for pancreatic mass. Per RN, pt has been eating well. PCT recorded 100% meal intake today. Will continue to monitor and follow. Please consult as needed. Current Diet: ADA 1800 diet Malnutrition Evaluation (08/14/2018) The patient does not meet criteria for a specified degree of malnutrition at this time. Will re-evaluate at follow-up as appropriate. Diet Education Needs Assessment: Diet education not indicated. Nutrition Care Level: low Signed: Viola Beaver, MS, RD, LD
--- NOTE | 2018-08-21 17:14 | NUR ---
Spoke to pt and his at bedside regarding outpatient follow up in [facility]. Pt stated that Dr. Makayla Porras was setting everything up and that he told them he would provide them with appointment information. Pt's stated that they will [facility]
[2018-08-21] MEDS: LEVOFLOXACIN 500MG/D5W 100ML 100 ML IV SCH (18:23)
[2018-08-21] MEDS: CEFTRIAXONE SOD 1 GM/NS 50 ML 50 ML IV SCH (18:23)
--- NOTE | 2018-08-21 19:00 | NUR ---
RECEIVED PATIENT IN BEDSIDE REPORT. PATIENT REPORTS NO PAIN AT THIS TIME. PATIENT RESTING ON SIDE, REMINDED PATIENT TO KEEP TURNING IN BED TO PREVENT PRESSURE TO SKIN. PATIENT VERBALIZED UNDERSTANDING AND STATED HE IS TURNING WHILE AWAKE AND TURNS A LOT IN HIS SLEEP. NO S&S OF DISTRESS NOTED AT THIS TIME. BED LOCKED IN LOWEST POSITION, SIDE RAILS UPX2, CALL LIGHT IN REACH.
--- NOTE | 2018-08-21 19:24 | NUR ---
report given to oncoming nurse, for continued care.
--- NOTE | 2018-08-21 22:35 | NUR ---
MD Makayla RAMIREZ IN ROOM WITH PATIENT. NEW ORDERS RECEIVED.
[2018-08-21] MEDS ORDERED: BISACODYL 5 MG TAB EC PO ONE (22:45)
[2018-08-22] VITALS: BP 119/71
[2018-08-22] MEDS ORDERED: SODIUM CHLORIDE 0.9% 100 ML 100 ML ONE (00:27)
[2018-08-22] MEDS: METOCLOPRAMIDE HCL 10 MG/2ML VIAL IV SCH ×3 (00:36→12:00)
[2018-08-22] MEDS: METRONIDAZOLE 500MG/NS 100ML 100 ML IV SCH ×3 (00:36→12:00)
[2018-08-22 04:00] VITALS: BP 124/73
[2018-08-22 05:33] LABS: BASOPHILS % 0.4 % (0.0-1.0); EOSINOPHILS # (AUTO) 0.2 (0.0-0.4); EOSINOPHILS % 2.1 % (0.0-6.0); HEMATOCRIT 23.8 % (38.2-49.6); HEMOGLOBIN 8.2 g/dL (14.0-18.0); LYMPHOCYTES # (AUTO) 2.3 (1.0-3.2); LYMPHOCYTES % 24.4 % (18.0-39.1); MEAN CORPUSCULAR HEMOGLOBIN 31.4 pg (28-32); MEAN CORPUSCULAR HGB CONC 34.5 g/dL (31-35); MEAN CORPUSCULAR VOLUME 91.2 fL (81-99); MONOCYTES # (AUTO) 0.6 (0.2-0.8); MONOCYTES % 6.3 % (4.4-11.3); NEUTROPHILS # (AUTO) 6.2 (2.1-6.9); NEUTROPHILS % 64.9 % (38.7-80.0); PLATELET COUNT 249 x10e3/uL (140-360); RED BLOOD COUNT 2.61 x10e6/uL (4.3-5.7); RED CELL DISTRIBUTION WIDTH 14.4 % (11.7-14.4)
[2018-08-22 05:41] LABS: ALBUMIN 1.9 g/dL (3.5-5.0); ALBUMIN/GLOBULIN RATIO 0.5 (0.8-2.0); ANION GAP 13.1 mmol/L (8-16); CALCIUM 8.1 mg/dL (8.4-10.2); CREATININE, SERUM 1.38 mg/dL (0.72-1.25); POTASSIUM 4.1 mmol/L (3.5-5.1)
--- NOTE | 2018-08-22 07:29 | NUR ---
RECEIVED PATIENT RESTING IN BED NO SIGNS OF DISTRESS AT THIS TIME. BED LOW, WHEELS LOCKED, SIDE RAILS X2. CALL LIGHT IN REACH WLL CONTINUE TO MONITOR PATIENT.
[2018-08-22] MEDS ORDERED: MAGNESIUM SULFATE 2GM/50ML 50 ML IV ONE ×2 (07:30→08:45)
--- NOTE | 2018-08-22 07:31 | Progress Note ---
DATE: 08/22/2018 SUBJECTIVE: The patient is here for elevated obstructive jaundice, status post laparoscopic cholecystectomy with biliary leak, status post CBD stent insertion and history of elevated CA19-9. The patient's CA19-9 is slightly elevated, continues to be stable the same. The patient's magnesium is little low. We will replace the magnesium. All the electrolytes and vitals seem stable. OBJECTIVE: VITAL SIGNS: Temperature is 100.3, pulse of 111, respirations of 19, blood pressure is 124/73, and T-max is 100.3. HEENT: Normocephalic and atraumatic. Pupils are reactive to light and accommodation. CVS: S1 and S2 normal. Regular rate and rhythm. ABDOMEN: Slightly distended. EXTREMITIES: No clubbing, no cyanosis, no edema. LABORATORY VALUES: The patient's white count is 9.6, hemoglobin is 8.2, and hematocrit 23.2. Chemistries show a sodium of 133, potassium 4.1, BUN of 17, creatinine of 1.38. Glucoses have been running in the 250s, magnesium was 1. Total bilirubin was 2.3, which has been stable from the last time. ASSESSMENT: Biliary leak, obstructive jaundice, elevated CA19-9, CBD stent, acute kidney injury, hypertension, anemia, and hypomagnesemia. We will replace the magnesium today. The patient can be discharged on Augmentin 875 mg twice a day for 10 days. We will follow up with Dr. Porras and will need EUS and also followup with Oncology at [facility] and MD Hurtado. The patient has been given strict ER warnings and also patient is eating about half of his plate. Encourage p.o. intake and also encourage caloric intake. Further recommendation per clinical course and we will follow the patient as an outpatient. MD LILIAN Urrutia/RAMIROL /[id number]
[2018-08-22 07:51] VITALS: BP 126/69
[2018-08-22] MEDS: DOCUSATE SODIUM 100 MG CAP PO SCH (08:01)
[2018-08-22] MEDS: PANTOPRAZOLE 40 MG 10ML VIAL IV SCH (08:01)
[2018-08-22] MEDS: INSULIN LISPRO 100 UNIT/1 ML 3ML VIAL SQ SCH ×2 (08:09→12:16)
[2018-08-22] MEDS: COLLAGENASE 5 GM TUBE TOP SCH (08:11)
[2018-08-22] MEDS ORDERED: PHYTONADIONE 10 MG/ML AMP SQ NR ×2 (08:45→12:00)
--- NOTE | 2018-08-22 09:12 | NUR ---
IMM EXPLAINED, SIGNED AND PLACED ON CHART COPY TO PT IN CARE TRANSITIONS FOLDER
[2018-08-22 09:23] VITALS: BP 126/69
[2018-08-22] MEDS: IRON SUCROSE 100 MG in SODIUM CHLORIDE 0.9% 100 ML 100 ML IV SCH (10:48)
[2018-08-22 11:48] VITALS: BP 143/66
[2018-08-22] MEDS ORDERED: AUGMENTIN 875-1 EACH PO (11:58)
--- NOTE | 2018-08-22 12:00 | NUR ---
REMOVED PATIENTS IV. CATHETER TIP INTACT AND PRESSURE DRESSING APPLIED.
--- NOTE | 2018-08-22 12:29 | NUR ---
PATIENT DISCHARGED FROM FACILITY. PATIENT GATHERED ALL PERSONAL BELONGINGS, DISCHARGE INSTRUCTIONS, AND FOLLOW UP INFORMATION. PATIENT LEFT UNIT IN WHEELCHAIR AND WENT HOME VIA PRIVATE AUTO. NO SIGNS OF DISTRESS WHEN LEAVING FACILITY.
== END 2018-08-22 12:29 | disposition home or self-care (01) | DRG 856 ==
LOC: ER 13:32 → ERHOLD 17:29 → IMCU 21:15 → OBSVTOIN 08-08 11:31 → MED/SURG 08-08 15:59
PROVIDERS: ADMIT Internal Medicine; ATTEND Internal Medicine
PROC: 0W9G3ZZ Drainage of Peritoneal Cavity, Percutaneous Approach (ICD-10-PCS; 2018-08-08)
PROC: 0W9J40Z Drainage of Pelvic Cavity with Drainage Device, Percutaneous Endoscopic Approach (ICD-10-PCS; principal; 2018-08-09 12:00)
PROC: 0F798DZ Dilation of Common Bile Duct with Intraluminal Device, Via Natural or Artificial Opening Endoscopic (ICD-10-PCS; 2018-08-12)
PROC: BF101ZZ Fluoroscopy of Bile Ducts using Low Osmolar Contrast (ICD-10-PCS; 2018-08-12)
PROC: 30243N1 Transfusion of Nonautologous Red Blood Cells into Central Vein, Percutaneous Approach (ICD-10-PCS; 2018-08-18)
DX: K68.11 Postprocedural retroperitoneal abscess (principal); N17.0 Acute kidney failure with tubular necrosis; K91.89 Other postprocedural complications and disorders of digestive system; R18.8 Other ascites; C25.0 Malignant neoplasm of head of pancreas; K56.7 Ileus, unspecified; E87.1 Hypo-osmolality and hyponatremia; K91.5 Postcholecystectomy syndrome; E11.22 Type 2 diabetes mellitus with diabetic chronic kidney disease; I12.9 Hypertensive chronic kidney disease with stage 1 through stage 4 chronic kidney disease, or unspecified chronic kidney disease; N18.3 Chronic kidney disease, stage 3 (moderate); E86.0 Dehydration; Z90.49 Acquired absence of other specified parts of digestive tract; N40.0 Benign prostatic hyperplasia without lower urinary tract symptoms; K21.9 Gastro-esophageal reflux disease without esophagitis; K74.60 Unspecified cirrhosis of liver; D64.9 Anemia, unspecified; E83.42 Hypomagnesemia
CPT/HCPCS: 36415; 43260; 43274; 49083; 74018; 74019; 74176; 74181; 74328; 74470; 76700; 76770; 78226; 80053; 80076; 81001; 82040; 82150; 82550; 82570; 82607; 82728; 82746; 82945; 82948; 83540; 83605; 83615; 83690; 83735; 84100; 84156; 84157; 84300; 84466; 84550; 85007; 85025; 85027; 85045; 85610; 85730; 86301; 86850; 86900; 86920; 87070; 87071; 87075; 87102; 87205; 87206; 88112; 88305; 89051; 96361; 96372; 96376; 99284; A9537; C2625; G0378; J0696; J1756; J1940; J1956; J2001; J2250; J2405; J2765; J3430; J3475; J7030; J7050; J7070; P9016

== ENCOUNTER → 2019-01-23 | Outpatient (CLI) | payer MEDICARE ==
[~2019-01-23] MED LIST changes: +AUGMENTIN 875-1 EACH PO
== END ==
LOC: RAD 11:38
PROVIDERS: ATTEND Internal Medicine
DX: R60.9 Edema, unspecified (principal)
CPT/HCPCS: 93971

== ENCOUNTER → 2020-01-13 | Outpatient (CLI) | payer MEDICARE | LOC: RAD 14:44 | PROVIDERS: ATTEND Internal Medicine | DX: R60.0 Localized edema (principal) | CPT/HCPCS: 93970 ==

== ENCOUNTER → 2020-05-02 | Day surgery (SDC) | payer MEDICARE ==
[2020-04-29 14:54] LABS: BASOPHILS # (AUTO) 0.1 (0.0-0.1); BASOPHILS % 0.9 % (0.0-1.0); EOSINOPHILS # (AUTO) 0.3 (0.0-0.4); EOSINOPHILS % 3.5 % (0.0-6.0); HEMATOCRIT 31.3 % (38.2-49.6); HEMOGLOBIN 10.6 g/dL (14.0-18.0); LYMPHOCYTES # (AUTO) 2.4 (1.0-3.2); LYMPHOCYTES % 29.9 % (18.0-39.1); MEAN CORPUSCULAR HEMOGLOBIN 29.2 pg (28-32); MEAN CORPUSCULAR HGB CONC 33.9 g/dL (31-35); MEAN CORPUSCULAR VOLUME 86.2 fL (81-99); MONOCYTES # (AUTO) 0.7 (0.2-0.8); MONOCYTES % 8.7 % (4.4-11.3); NEUTROPHILS # (AUTO) 4.5 (2.1-6.9); NEUTROPHILS % 56.5 % (38.7-80.0); PLATELET COUNT 204 x10e3/uL (140-360); RED BLOOD COUNT 3.63 x10e6/uL (4.3-5.7); RED CELL DISTRIBUTION WIDTH 13.6 % (11.7-14.4)
[~2020-05-02] MED LIST changes: +AMLODIPINE BESY10 MG PO; +BENICAR20 MG PO; +FENTANYL CITRATE/PF 100MCG/2 ML INJ ONE; +GLUCAGON FOR INJ 1 MG VIAL ONE; +LEVEMIR FL100 UNIT/1 SC; +LIDOCAINE HCL 2% LOCAL INJ 5 ML SDV VIAL INJ ONE; +MAGNESIUM OXID400 MG PO; +MOBIC7.5 MG PO; +NOVOLOG100 UNIT/1 SC; +PROPOFOL IV EMULSION 10 MG/ML 20 ML VIAL ONE
[2020-05-02 14:50] VITALS: BP 134/80
== END | disposition home or self-care (01) ==
LOC: OR 11:28
PROVIDERS: ATTEND Internal Medicine Gastroenterology
DX: Z12.11 Encounter for screening for malignant neoplasm of colon (principal); K59.00 Constipation, unspecified; K57.30 Diverticulosis of large intestine without perforation or abscess without bleeding; K64.8 Other hemorrhoids; I10 Essential (primary) hypertension; E11.9 Type 2 diabetes mellitus without complications; E03.9 Hypothyroidism, unspecified; J45.909 Unspecified asthma, uncomplicated; H91.90 Unspecified hearing loss, unspecified ear; Z01.810 Encounter for preprocedural cardiovascular examination; Z01.812 Encounter for preprocedural laboratory examination; Z20.822 Contact with and (suspected) exposure to COVID-19; Z79.4 Long term (current) use of insulin; Z85.07 Personal history of malignant neoplasm of pancreas; Z90.411 Acquired partial absence of pancreas
CPT/HCPCS: 36415 ×2; 45380; 82948; 85025; 93005; J1610; J2001; J2704; J3010; U0002; 45378

== ENCOUNTER 2020-11-25 18:50 | Emergency (ER) | payer MEDICARE ==
[~2020-11-25] VITALS: Ht 175.3 cm; Wt 77.1 kg
[~2020-11-25 18:50] MED LIST changes: -FENTANYL CITRATE/PF 100MCG/2 ML INJ ONE; -GLUCAGON FOR INJ 1 MG VIAL ONE; -LIDOCAINE HCL 2% LOCAL INJ 5 ML SDV VIAL INJ ONE; -PROPOFOL IV EMULSION 10 MG/ML 20 ML VIAL ONE
[2020-11-25] MEDS ORDERED: CASIRIVIMAB/IMDEVIMAB 10 ML in SODIUM CHLORIDE 0.9% 100 ML IV ONE (19:15)
== END 2020-11-25 20:55 | disposition home or self-care (01) ==
LOC: ER 19:13
DX: R05 Cough (principal); U07.1 COVID-19; I10 Essential (primary) hypertension; E11.9 Type 2 diabetes mellitus without complications; E78.5 Hyperlipidemia, unspecified; J45.909 Unspecified asthma, uncomplicated
CPT/HCPCS: 99283; J7050

== ENCOUNTER → 2021-06-20 | Day surgery (SDC) | payer MEDICARE ==
[2021-06-16 14:24] LABS: BASOPHILS % 0.5 % (0.0-1.0); EOSINOPHILS # (AUTO) 0.2 (0.0-0.4); EOSINOPHILS % 3.3 % (0.0-6.0); HEMATOCRIT 30.9 % (38.2-49.6); LYMPHOCYTES # (AUTO) 1.9 (1.0-3.2); MEAN CORPUSCULAR HEMOGLOBIN 29.9 pg (28-32); MEAN CORPUSCULAR HGB CONC 32.4 g/dL (31-35); MEAN CORPUSCULAR VOLUME 92.5 fL (81-99); MONOCYTES # (AUTO) 0.5 (0.2-0.8); NEUTROPHILS # (AUTO) 4.6 (2.1-6.9); NEUTROPHILS % 62.7 % (38.7-80.0); PLATELET COUNT 206 x10e3/uL (140-360); RED BLOOD COUNT 3.34 x10e6/uL (4.3-5.7); RED CELL DISTRIBUTION WIDTH 13.9 % (11.7-14.4)
[~2021-06-20] MED LIST changes: +LEVOTHYROXINE88 MCG PO; +LIDOCAINE HCL 2% LOCAL INJ 5 ML SDV VIAL INJ ONE; +POVIDONE IODINE 0.05% 0.05 % ML PO ONE; +PROPOFOL IV EMULSION 10 MG/ML 20 ML VIAL ONE
[2021-06-20 12:45] VITALS: BP 135/83
== END | disposition home or self-care (01) ==
LOC: OR 10:30
PROVIDERS: ATTEND Internal Medicine Gastroenterology
DX: D50.9 Iron deficiency anemia, unspecified (principal); K29.70 Gastritis, unspecified, without bleeding; K20.90 Esophagitis, unspecified without bleeding; Z85.07 Personal history of malignant neoplasm of pancreas; Z90.49 Acquired absence of other specified parts of digestive tract; Z90.410 Acquired total absence of pancreas; E03.9 Hypothyroidism, unspecified; J44.9 Chronic obstructive pulmonary disease, unspecified; E11.22 Type 2 diabetes mellitus with diabetic chronic kidney disease; I12.9 Hypertensive chronic kidney disease with stage 1 through stage 4 chronic kidney disease, or unspecified chronic kidney disease; N18.9 Chronic kidney disease, unspecified; R79.89 Other specified abnormal findings of blood chemistry; Z01.810 Encounter for preprocedural cardiovascular examination; Z01.812 Encounter for preprocedural laboratory examination; Z20.822 Contact with and (suspected) exposure to COVID-19; Z79.4 Long term (current) use of insulin; Z79.899 Other long term (current) drug therapy; Z87.891 Personal history of nicotine dependence
CPT/HCPCS: 36415 ×2; 43239; 82948; 85025; 93005; C9113; J2001; J2704; U0002

== ENCOUNTER 2022-03-15 17:19 | Inpatient (IN) | payer MEDICARE ==
[~2022-03-15] VITALS: Ht 175.3 cm; Wt 93.4 kg
[~2022-03-15 17:19] MED LIST changes: -LIDOCAINE HCL 2% LOCAL INJ 5 ML SDV VIAL INJ ONE; -POVIDONE IODINE 0.05% 0.05 % ML PO ONE; -PROPOFOL IV EMULSION 10 MG/ML 20 ML VIAL ONE
[2022-03-15 18:30] LABS: BASOPHILS # (AUTO) 0.1 (0.0-0.1); BASOPHILS % 0.5 % (0.0-1.0); EOSINOPHILS # (AUTO) 0.2 (0.0-0.4); EOSINOPHILS % 2.2 % (0.0-6.0); LYMPHOCYTES # (AUTO) 1.4 (1.0-3.2); LYMPHOCYTES % 12.6 % (18.0-39.1); MEAN CORPUSCULAR HEMOGLOBIN 28.3 pg (28-32); MEAN CORPUSCULAR HGB CONC 28.5 g/dL (31-35); MEAN CORPUSCULAR VOLUME 99.6 fL (81-99); MONOCYTES # (AUTO) 0.5 (0.2-0.8); MONOCYTES % 4.7 % (4.4-11.3); NEUTROPHILS # (AUTO) 8.5 (2.1-6.9); NEUTROPHILS % 79.3 % (38.7-80.0); PLATELET COUNT 232 x10e3/uL (140-360)
[2022-03-15 18:33] LABS: HEMATOCRIT 23.9 % (38.2-49.6); HEMOGLOBIN 6.8 g/dL (14.0-18.0)
[2022-03-15 18:36] LABS: ALANINE AMINOTRANSFERASE 16 IU/L (0-55); ALBUMIN 3.1 g/dL (3.5-5.0); ALBUMIN/GLOBULIN RATIO 0.7 (0.8-2.0); ALKALINE PHOSPHATASE 62 IU/L (40-150); ANION GAP 17.2 mmol/L (8-16); BLOOD UREA NITROGEN 58 mg/dL (7-26); BUN/CREATININE RATIO 16 (6-25); CALCIUM 8.1 mg/dL (8.4-10.2); CHLORIDE 116 mmol/L (98-107); CREATININE, SERUM 3.52 mg/dL (0.72-1.25); GLUCOSE 375 mg/dL (74-118); SODIUM 135 mmol/L (136-145)
[2022-03-15 18:38] LABS: CARBON DIOXIDE 8 mmol/L (22-29); POTASSIUM 6.2 mmol/L (3.5-5.1)
[2022-03-15] MEDS ORDERED: SODIUM BICARBONATE 8.4% INJ 50 ML SYR IV STA (18:38)
[2022-03-15] MEDS ORDERED: DEXTROSE 50% SYRINGE 50 ML IV STA (18:38)
[2022-03-15] MEDS ORDERED: ALBUTEROL SULF 0.083% NEB SOLN 3 ML NEB NEB STA (18:38)
[2022-03-15] MEDS ORDERED: CEFTRIAXONE 1 GM VIAL IV ONE (18:45)
[2022-03-15] MEDS ORDERED: SODIUM CHLORIDE 0.9% 1000ML 1,000 ML IV ONE ×2 (18:45→21:30)
[2022-03-15] MEDS ORDERED: INSULIN REGULAR, HUMAN 100 UNIT/1 ML IV ONE (18:45)
[2022-03-15] MEDS ORDERED: Vancomycin IV 1 GM in SODIUM CHLORIDE 0.9% 250ML 250 ML IV STA (18:45)
[2022-03-15] MEDS ORDERED: SODIUM CHLORIDE 0.9% 250ML 250 ML IV ONE (18:45)
[2022-03-15] MEDS ORDERED: SODIUM CHLORIDE 0.9% 1000ML 1,000 ML IV SCH (19:00)
[2022-03-15] MEDS ORDERED: SOD POLYSTYRENE SULFONATE SUSP 15 GM/60 ML BTL PO ONE (19:15)
[2022-03-15] MEDS ORDERED: LACTULOSE SYRUP 20 GM/30 ML UDC PO ONE (19:15)
[2022-03-15] MEDS ORDERED: SODIUM BICARBONATE 8.4% 150 ML in DEXTROSE 5% 1,000 ML IV ONE (19:30)
[2022-03-15] MEDS: CALCIUM GLUC 1 G/50 ML NACL 50 ML IV SCH ×2 (19:44→22:00)
[2022-03-15] MEDS: ONDANSETRON HCL INJ 2MG/ML 2ML 2 MG/ML VIAL IV PRN (20:13)
[2022-03-15] MEDS ORDERED: SOD POLYSTYRENE SULFONATE SUSP 15 GM/60 ML BTL ONE (20:18)
[2022-03-15] MEDS ORDERED: ONDANSETRON HCL INJ 2MG/ML 2ML 2 MG/ML VIAL IV STA (21:19)
[2022-03-15] MEDS ORDERED: Morphine 4mg INJECTION 4 MG/ML INJ IV ONE (21:30)
[2022-03-15] MEDS ORDERED: SODIUM CHLORIDE 0.9% 250ML 250 ML ONE (23:24)
[2022-03-15] MEDS ORDERED: ACETAMINOPHEN 325 MG TAB ONE (23:48)
[2022-03-16] VITALS (34 sets, daily range): BP systolic 116–169; BP diastolic 51–83
[2022-03-16] MEDS ORDERED: HYDRALAZINE HCL 20 MG/ML VIAL IV PRN (03:00)
[2022-03-16] MEDS ORDERED: ACETAMINOPHEN 325 MG TAB PO PRN (03:00)
[2022-03-16] MEDS ORDERED: DOCUSATE SODIUM 100 MG CAP PO PRN (03:00)
[2022-03-16] MEDS ORDERED: MELATONIN 3 MG TAB PO PRN (03:00)
[2022-03-16] MEDS ORDERED: ALBUTEROL SULF 0.083% NEB SOLN 3 ML NEB NEB PRN (03:00)
[2022-03-16] MEDS ORDERED: GUAIFENESIN/DEXTROMETHORPHAN LIQD 5 ML UDC PO PRN (03:00)
[2022-03-16] MEDS ORDERED: DEXTROSE 50% SYRINGE 50 ML IV PRN ×2 (03:00→09:15)
[2022-03-16] MEDS ORDERED: SODIUM CHLORIDE 0.9% 250ML 250 ML ONE (03:37)
[2022-03-16 06:42] LABS: ANION GAP 16.1 mmol/L (8-16); CALCIUM 7.7 mg/dL (8.4-10.2); CREATININE, SERUM 3.26 mg/dL (0.72-1.25)
[2022-03-16 06:50] LABS: POTASSIUM 6.1 mmol/L (3.5-5.1)
[2022-03-16] MEDS ORDERED: SOD POLYSTYRENE SULFONATE SUSP 15 GM/60 ML BTL PO ONE (07:15)
[2022-03-16] MEDS ORDERED: INSULIN REGULAR, HUMAN 100 UNIT/1 ML IV ONE (07:15)
[2022-03-16] MEDS ORDERED: LACTULOSE SYRUP 20 GM/30 ML UDC PO ONE (07:15)
[2022-03-16] MEDS ORDERED: DEXTROSE 50% SYRINGE 50 ML IV ONE (07:15)
[2022-03-16] MEDS ORDERED: LEVOTHYROXINE SODIUM 88 MCG TAB PO SCH (07:30)
[2022-03-16] MEDS ORDERED: INSULIN REGULAR, HUMAN 100 UNIT/1 ML SQ SCH (07:30)
[2022-03-16] MEDS: MULTIVITAMINS/MINERALS TAB PO SCH (08:12)
[2022-03-16] MEDS: AMLODIPINE BESYLATE 10 MG TAB PO SCH (08:15)
[2022-03-16 08:53] LABS: ALBUMIN 2.9 g/dL (3.5-5.0); ALBUMIN/GLOBULIN RATIO 0.8 (0.8-2.0); ANION GAP 16.5 mmol/L (8-16); CALCIUM 7.9 mg/dL (8.4-10.2); CREATININE, SERUM 3.28 mg/dL (0.72-1.25); POTASSIUM 5.5 mmol/L (3.5-5.1)
[2022-03-16] MEDS ORDERED: INSULIN REGULAR, HUMAN 3ML VL 100 UNIT in SODIUM CHLORIDE 0.9% 99 ML IV SCH ×2 (09:15)
[2022-03-16 10:29] LABS: BASOPHILS % 0.5 % (0.0-1.0); EOSINOPHILS # (AUTO) 0.1 (0.0-0.4); EOSINOPHILS % 1.5 % (0.0-6.0); HEMATOCRIT 25.7 % (38.2-49.6); HEMOGLOBIN 7.5 g/dL (14.0-18.0); LYMPHOCYTES % 11.6 % (18.0-39.1); MEAN CORPUSCULAR HEMOGLOBIN 27.4 pg (28-32); MEAN CORPUSCULAR HGB CONC 29.2 g/dL (31-35); MEAN CORPUSCULAR VOLUME 93.8 fL (81-99); MONOCYTES # (AUTO) 0.5 (0.2-0.8); MONOCYTES % 5.6 % (4.4-11.3); NEUTROPHILS # (AUTO) 6.6 (2.1-6.9); NEUTROPHILS % 80.2 % (38.7-80.0); PLATELET COUNT 199 x10e3/uL (140-360); RED BLOOD COUNT 2.74 x10e6/uL (4.3-5.7); RED CELL DISTRIBUTION WIDTH 17.7 % (11.7-14.4)
[2022-03-16 10:51] LABS: CALCIUM 7.7 mg/dL (8.4-10.2); CREATININE, SERUM 3.16 mg/dL (0.72-1.25)
[2022-03-16 13:46] LABS: ANION GAP 14.8 mmol/L (8-16); CALCIUM 7.9 mg/dL (8.4-10.2); CREATININE, SERUM 3.02 mg/dL (0.72-1.25); POTASSIUM 4.8 mmol/L (3.5-5.1)
[2022-03-16] MEDS ORDERED: DEXTROSE 5% 1,000 ML IV ONE (14:00)
[2022-03-16 14:17] LABS: CLARITY,URINE CLEAR (CLEAR); COLOR,URINE YELLOW (YELLOW); KETONES,URINE NEGATIVE (NEGATIVE); LEUKOCYTE ESTERASE ,URINE NEGATIVE (NEGATIVE); NITRITE,URINE NEGATIVE (NEGATIVE); PROTEIN,URINE DIPSTICK 1+ (NEGATIVE)
[2022-03-16 14:18] LABS: URINE UROBILINOGEN 0.2 mg/dL (0.2 - 1)
[2022-03-16 14:22] LABS: BACTERIA,URINE FEW /HPF; EPITHELIAL CELLS,URINE FEW /LPF; RBC,URINE 0-5 /HPF (0-5); WBC,URINE (MAN) 0-5 /HPF (0-5)
[2022-03-16] MEDS ORDERED: DEXTROSE 5% 1,000 ML IV SCH (16:00)
[2022-03-16 18:50] LABS: ANION GAP 13.4 mmol/L (8-16); CALCIUM 7.2 mg/dL (8.4-10.2); CREATININE, SERUM 2.95 mg/dL (0.72-1.25); POTASSIUM 4.4 mmol/L (3.5-5.1)
[2022-03-16] MEDS: ONDANSETRON HCL INJ 2MG/ML 2ML 2 MG/ML VIAL IV PRN (19:59)
[2022-03-16] MEDS: Vancomycin IV 1 GM in SODIUM CHLORIDE 0.9% 250ML 250 ML IV SCH (19:59)
[2022-03-16] MEDS ORDERED: SODIUM BICARBONATE 8.4% 150 ML in DEXTROSE 5% 1,000 ML IV SCH (20:00)
[2022-03-16] MEDS: INSULIN LISPRO 100 UNIT/1 ML 3ML VIAL SQ SCH (20:35)
[2022-03-17] VITALS (16 sets, daily range): BP systolic 116–159; BP diastolic 56–98
[2022-03-17 06:08] LABS: BASOPHILS # (AUTO) 0.1 (0.0-0.1); BASOPHILS % 0.9 % (0.0-1.0); EOSINOPHILS # (AUTO) 0.4 (0.0-0.4); HEMATOCRIT 23.8 % (38.2-49.6); HEMOGLOBIN 7.1 g/dL (14.0-18.0); LYMPHOCYTES # (AUTO) 1.4 (1.0-3.2); LYMPHOCYTES % 17.4 % (18.0-39.1); MEAN CORPUSCULAR HEMOGLOBIN 27.5 pg (28-32); MEAN CORPUSCULAR HGB CONC 29.8 g/dL (31-35); MEAN CORPUSCULAR VOLUME 92.2 fL (81-99); MONOCYTES # (AUTO) 0.6 (0.2-0.8); MONOCYTES % 8.1 % (4.4-11.3); NEUTROPHILS # (AUTO) 5.3 (2.1-6.9); RED BLOOD COUNT 2.58 x10e6/uL (4.3-5.7); RED CELL DISTRIBUTION WIDTH 17.4 % (11.7-14.4)
[2022-03-17 06:15] LABS: PLATELET COUNT 194 x10e3/uL (140-360)
[2022-03-17] MEDS ORDERED: SODIUM CHLORIDE 0.9% 250ML 250 ML IV PRN (06:30)
[2022-03-17 06:31] LABS: ALBUMIN 2.5 g/dL (3.5-5.0); ALBUMIN/GLOBULIN RATIO 0.9 (0.8-2.0); ANION GAP 14.8 mmol/L (8-16); CREATININE, SERUM 2.95 mg/dL (0.72-1.25); POTASSIUM 4.8 mmol/L (3.5-5.1)
[2022-03-17 06:44] LABS: MAGNESIUM 1.2 MG/DL (1.3-2.1); PHOSPHORUS 4.8 MG/DL (2.3-4.7)
[2022-03-17] MEDS: LEVOTHYROXINE SODIUM 100 MCG TAB PO SCH (07:34)
[2022-03-17] MEDS: MULTIVITAMINS/MINERALS TAB PO SCH (07:58)
[2022-03-17] MEDS: AMLODIPINE BESYLATE 10 MG TAB PO SCH (07:58)
[2022-03-17] MEDS: INSULIN LISPRO 100 UNIT/1 ML 3ML VIAL SQ SCH ×4 (08:00→20:43)
[2022-03-17] MEDS: SODIUM BICARBONATE 650 MG TAB PO SCH ×3 (09:29→20:37)
[2022-03-17] MEDS: DEXTROSE 5%/0.45% SOD CHL 1,000 ML IV SCH (09:35)
[2022-03-17] MEDS ORDERED: SODIUM CHLORIDE 0.9% 250ML 250 ML ONE (11:51)
[2022-03-17] MEDS: Vancomycin IV 1 GM in SODIUM CHLORIDE 0.9% 250ML 250 ML IV SCH (20:37)
[2022-03-18] VITALS (7 sets, daily range): BP systolic 125–162; BP diastolic 67–78
[2022-03-18] MEDS: DEXTROSE 5%/0.45% SOD CHL 1,000 ML IV SCH ×3 (04:50→23:30)
[2022-03-18] MEDS: INSULIN LISPRO 100 UNIT/1 ML 3ML VIAL SQ SCH ×4 (08:20→21:00)
[2022-03-18] MEDS: LEVOTHYROXINE SODIUM 100 MCG TAB PO SCH (08:24)
[2022-03-18] MEDS: MULTIVITAMINS/MINERALS TAB PO SCH (08:24)
[2022-03-18] MEDS: SODIUM BICARBONATE 650 MG TAB PO SCH ×3 (08:25→21:03)
[2022-03-18] MEDS: AMLODIPINE BESYLATE 10 MG TAB PO SCH (08:25)
[2022-03-18 09:43] LABS: BASOPHILS # (AUTO) 0.1 (0.0-0.1); BASOPHILS % 0.7 % (0.0-1.0); EOSINOPHILS # (AUTO) 0.4 (0.0-0.4); EOSINOPHILS % 4.5 % (0.0-6.0); HEMATOCRIT 27.2 % (38.2-49.6); HEMOGLOBIN 8.1 g/dL (14.0-18.0); LYMPHOCYTES # (AUTO) 1.3 (1.0-3.2); LYMPHOCYTES % 14.4 % (18.0-39.1); MEAN CORPUSCULAR HEMOGLOBIN 27.1 pg (28-32); MEAN CORPUSCULAR HGB CONC 29.8 g/dL (31-35); MONOCYTES # (AUTO) 0.7 (0.2-0.8); MONOCYTES % 7.3 % (4.4-11.3); NEUTROPHILS # (AUTO) 6.6 (2.1-6.9); NEUTROPHILS % 72.6 % (38.7-80.0); PLATELET COUNT 181 x10e3/uL (140-360); RED BLOOD COUNT 2.99 x10e6/uL (4.3-5.7); RED CELL DISTRIBUTION WIDTH 17.9 % (11.7-14.4)
[2022-03-18 09:54] LABS: ALBUMIN 2.2 g/dL (3.5-5.0); ALBUMIN/GLOBULIN RATIO 0.7 (0.8-2.0); ANION GAP 14.1 mmol/L (8-16); CREATININE, SERUM 2.77 mg/dL (0.72-1.25); POTASSIUM 4.1 mmol/L (3.5-5.1)
[2022-03-18 10:05] LABS: CALCIUM 6.6 mg/dL (8.4-10.2)
[2022-03-18] MEDS ORDERED: CALCIUM GLUC 1 G/50 ML NACL 50 ML IV ONE (11:15)
[2022-03-18] MEDS: Vancomycin IV 1 GM in SODIUM CHLORIDE 0.9% 250ML 250 ML IV SCH (21:03)
[2022-03-18] MEDS: HYDROCODONE/APAP 10MG-325MG TAB PO PRN (23:26)
[2022-03-19] VITALS (7 sets, daily range): BP systolic 149–155; BP diastolic 71–82
[2022-03-19] MEDS: HYDROCODONE/APAP 10MG-325MG TAB PO PRN (05:23)
[2022-03-19 06:03] LABS: BASOPHILS # (AUTO) 0.1 (0.0-0.1); BASOPHILS % 0.5 % (0.0-1.0); EOSINOPHILS # (AUTO) 0.2 (0.0-0.4); EOSINOPHILS % 1.8 % (0.0-6.0); HEMATOCRIT 29.1 % (38.2-49.6); HEMOGLOBIN 9.4 g/dL (14.0-18.0); LYMPHOCYTES # (AUTO) 1.7 (1.0-3.2); LYMPHOCYTES % 13.7 % (18.0-39.1); MEAN CORPUSCULAR HEMOGLOBIN 27.7 pg (28-32); MEAN CORPUSCULAR HGB CONC 32.3 g/dL (31-35); MEAN CORPUSCULAR VOLUME 85.8 fL (81-99); MONOCYTES # (AUTO) 1.1 (0.2-0.8); MONOCYTES % 9.1 % (4.4-11.3); NEUTROPHILS # (AUTO) 9.2 (2.1-6.9); NEUTROPHILS % 73.9 % (38.7-80.0); PLATELET COUNT 200 x10e3/uL (140-360); RED BLOOD COUNT 3.39 x10e6/uL (4.3-5.7); RED CELL DISTRIBUTION WIDTH 17.4 % (11.7-14.4)
[2022-03-19 06:34] LABS: ALBUMIN 2.3 g/dL (3.5-5.0); ALBUMIN/GLOBULIN RATIO 0.7 (0.8-2.0); ANION GAP 15.7 mmol/L (8-16); CALCIUM 7.2 mg/dL (8.4-10.2); CREATININE, SERUM 2.74 mg/dL (0.72-1.25); POTASSIUM 3.7 mmol/L (3.5-5.1)
[2022-03-19] MEDS: LEVOTHYROXINE SODIUM 100 MCG TAB PO SCH (08:02)
[2022-03-19] MEDS: SODIUM BICARBONATE 650 MG TAB PO SCH ×3 (08:37→20:36)
[2022-03-19] MEDS: MULTIVITAMINS/MINERALS TAB PO SCH (08:37)
[2022-03-19] MEDS: METHYLPREDNISOLONE SOD SUCC 40 MG/ML VIAL 1ML IV SCH ×2 (08:38→20:36)
[2022-03-19] MEDS: INSULIN LISPRO 100 UNIT/1 ML 3ML VIAL SQ SCH ×4 (08:46→20:55)
[2022-03-19] MEDS ORDERED: SODIUM CHLORIDE 0.9% 250ML 250 ML ONE (12:31)
[2022-03-19] MEDS ORDERED: ONDANSETRON HCL 4 MG ORAL DISINTEGRATING TAB PO PRN (19:45)
[2022-03-19] MEDS: Vancomycin IV 1 GM in SODIUM CHLORIDE 0.9% 250ML 250 ML IV SCH (20:37)
[2022-03-20] VITALS (8 sets, daily range): BP systolic 133–154; BP diastolic 69–76
[2022-03-20 06:11] LABS: BASOPHILS % 0.1 % (0.0-1.0); HEMATOCRIT 30.4 % (38.2-49.6); HEMOGLOBIN 9.3 g/dL (14.0-18.0); LYMPHOCYTES # (AUTO) 1.2 (1.0-3.2); MEAN CORPUSCULAR HEMOGLOBIN 27.3 pg (28-32); MEAN CORPUSCULAR HGB CONC 30.6 g/dL (31-35); MEAN CORPUSCULAR VOLUME 89.1 fL (81-99); MONOCYTES # (AUTO) 0.3 (0.2-0.8); NEUTROPHILS # (AUTO) 13.2 (2.1-6.9); NEUTROPHILS % 88.8 % (38.7-80.0); PLATELET COUNT 191 x10e3/uL (140-360); RED BLOOD COUNT 3.41 x10e6/uL (4.3-5.7); RED CELL DISTRIBUTION WIDTH 16.6 % (11.7-14.4)
[2022-03-20 06:31] LABS: ALBUMIN 2.2 g/dL (3.5-5.0); ALBUMIN/GLOBULIN RATIO 0.6 (0.8-2.0); ANION GAP 15.4 mmol/L (8-16); CALCIUM 7.1 mg/dL (8.4-10.2); CREATININE, SERUM 2.7 mg/dL (0.72-1.25); POTASSIUM 3.4 mmol/L (3.5-5.1)
[2022-03-20] MEDS ORDERED: POTASSIUM CHLORIDE 20 MEQ TAB CR PO STA (08:00)
[2022-03-20] MEDS: METHYLPREDNISOLONE SOD SUCC 40 MG/ML VIAL 1ML IV SCH ×2 (08:34→21:43)
[2022-03-20] MEDS: SODIUM BICARBONATE 650 MG TAB PO SCH ×3 (08:34→21:43)
[2022-03-20] MEDS: MULTIVITAMINS/MINERALS TAB PO SCH (08:34)
[2022-03-20] MEDS: INSULIN LISPRO 100 UNIT/1 ML 3ML VIAL SQ SCH ×4 (08:44→21:58)
[2022-03-20] MEDS: LEVOTHYROXINE SODIUM 100 MCG TAB PO SCH (09:06)
[2022-03-20] MEDS ORDERED: POTASSIUM CHLORIDE 20 MEQ TAB CR PO ONE (16:00)
[2022-03-20] MEDS ORDERED: MAGNESIUM SULFATE 2GM/50ML 50 ML IV ONE (16:00)
[2022-03-20] MEDS: Vancomycin IV 1 GM in SODIUM CHLORIDE 0.9% 250ML 250 ML IV SCH (21:00)
[2022-03-21] VITALS (7 sets, daily range): BP systolic 135–158; BP diastolic 67–79
[2022-03-21 06:22] LABS: MAGNESIUM 1.7 MG/DL (1.3-2.1); PHOSPHORUS 5.2 MG/DL (2.3-4.7)
[2022-03-21 07:09] LABS: BASOPHILS % 0.1 % (0.0-1.0); HEMATOCRIT 27.6 % (38.2-49.6); LYMPHOCYTES # (AUTO) 1.3 (1.0-3.2); LYMPHOCYTES % 8.5 % (18.0-39.1); MEAN CORPUSCULAR HEMOGLOBIN 30.6 pg (28-32); MEAN CORPUSCULAR HGB CONC 32.6 g/dL (31-35); MEAN CORPUSCULAR VOLUME 93.9 fL (81-99); MONOCYTES # (AUTO) 0.3 (0.2-0.8); MONOCYTES % 1.9 % (4.4-11.3); NEUTROPHILS % 88.3 % (38.7-80.0); PLATELET COUNT 246 x10e3/uL (140-360); RED BLOOD COUNT 2.94 x10e6/uL (4.3-5.7); RED CELL DISTRIBUTION WIDTH 15.7 % (11.7-14.4)
[2022-03-21 07:21] LABS: ALBUMIN 2.1 g/dL (3.5-5.0); ALBUMIN/GLOBULIN RATIO 0.6 (0.8-2.0); ANION GAP 16.6 mmol/L (8-16); CALCIUM 7.2 mg/dL (8.4-10.2); CREATININE, SERUM 2.96 mg/dL (0.72-1.25); POTASSIUM 3.6 mmol/L (3.5-5.1)
[2022-03-21] MEDS: INSULIN LISPRO 100 UNIT/1 ML 3ML VIAL SQ SCH ×4 (07:30→21:49)
[2022-03-21] MEDS: SODIUM BICARBONATE 650 MG TAB PO SCH ×3 (08:40→21:38)
[2022-03-21] MEDS: MULTIVITAMINS/MINERALS TAB PO SCH (08:41)
[2022-03-21] MEDS: LEVOTHYROXINE SODIUM 100 MCG TAB PO SCH (08:42)
[2022-03-21 20:31] LABS: % IRON SATURATION 44 % (15-50); IRON 65 ug/dL (65-175); TOTAL IRON BINDING CAPACITY 147 ug/dL (261-478); TRANSFERRIN 105 mg/dL (174-364)
[2022-03-21] MEDS: Vancomycin IV 1 GM in SODIUM CHLORIDE 0.9% 250ML 250 ML IV SCH (21:38)
[2022-03-21] MEDS ORDERED: FOLIC ACID 1 MG TAB PO ONE (22:45)
[2022-03-22] VITALS: BP 125/54
[2022-03-22 04:00] VITALS: BP 170/78
[2022-03-22] MEDS: LEVOTHYROXINE SODIUM 100 MCG TAB PO SCH (06:39)
[2022-03-22 08:35] VITALS: BP 136/80
[2022-03-22] MEDS: SODIUM BICARBONATE 650 MG TAB PO SCH (08:43)
[2022-03-22] MEDS: MULTIVITAMINS/MINERALS TAB PO SCH (08:43)
[2022-03-22] MEDS ORDERED: FOLIC ACID 1 MG TAB PO SCH (09:00)
== END 2022-03-22 09:06 | disposition home or self-care (01) | DRG 872 ==
LOC: ER 17:43 → ERHOLD 19:22 → ICU 03-16 00:12 → MED/SURG3 03-17 08:42
PROVIDERS: ADMIT Internal Medicine; ATTEND Internal Medicine
PROC: 30233N1 Transfusion of Nonautologous Red Blood Cells into Peripheral Vein, Percutaneous Approach (ICD-10-PCS; principal; 2022-03-15)
PROC: 3E03329 Introduction of Other Anti-infective into Peripheral Vein, Percutaneous Approach (ICD-10-PCS; 2022-03-15)
DX: A41.9 Sepsis, unspecified organism (principal); N17.9 Acute kidney failure, unspecified; E87.20 Acidosis, unspecified; K92.2 Gastrointestinal hemorrhage, unspecified; E87.1 Hypo-osmolality and hyponatremia; N18.4 Chronic kidney disease, stage 4 (severe); E11.22 Type 2 diabetes mellitus with diabetic chronic kidney disease; I12.9 Hypertensive chronic kidney disease with stage 1 through stage 4 chronic kidney disease, or unspecified chronic kidney disease; Z79.4 Long term (current) use of insulin; D50.9 Iron deficiency anemia, unspecified; E87.5 Hyperkalemia; N20.0 Calculus of kidney; Z85.07 Personal history of malignant neoplasm of pancreas; E78.5 Hyperlipidemia, unspecified; E11.69 Type 2 diabetes mellitus with other specified complication; E03.9 Hypothyroidism, unspecified; Z85.05 Personal history of malignant neoplasm of liver; Q18.1 Preauricular sinus and cyst; B95.8 Unspecified staphylococcus as the cause of diseases classified elsewhere
CPT/HCPCS: 36415; 51700; 71045; 72192; 74176; 76770; 80048; 80053; 80202; 81001; 82010; 82270; 82607; 82746; 82948; 83036; 83540; 83735; 84100; 84443; 84466; 84550; 85025; 85045; 86850; 86900; 86920; 87040; 87086; 93005; 94799; 99252; 99284; J0360; J0696; J1817; J2270; J2405; J2543; J2920; J3370; J3475; J7030; J7050; J7070; J7799; P9016

== ENCOUNTER 2022-04-25 17:29 | Emergency (ER) | payer MEDICARE ==
[~2022-04-25] VITALS: Ht 175.3 cm; Wt 93.4 kg
[2022-04-25 18:35] LABS: BASOPHILS # (AUTO) 0.1 (0.0-0.1); BASOPHILS % 0.6 % (0.0-1.0); EOSINOPHILS # (AUTO) 0.3 (0.0-0.4); HEMATOCRIT 24.8 % (38.2-49.6); HEMOGLOBIN 7.8 g/dL (14.0-18.0); LYMPHOCYTES # (AUTO) 1.7 (1.0-3.2); LYMPHOCYTES % 21.8 % (18.0-39.1); MEAN CORPUSCULAR HEMOGLOBIN 28.2 pg (28-32); MEAN CORPUSCULAR HGB CONC 31.5 g/dL (31-35); MEAN CORPUSCULAR VOLUME 89.5 fL (81-99); MONOCYTES # (AUTO) 0.5 (0.2-0.8); MONOCYTES % 6.2 % (4.4-11.3); NEUTROPHILS # (AUTO) 5.2 (2.1-6.9); NEUTROPHILS % 65.5 % (38.7-80.0); PLATELET COUNT 170 x10e3/uL (140-360); RED BLOOD COUNT 2.77 x10e6/uL (4.3-5.7); RED CELL DISTRIBUTION WIDTH 18.2 % (11.7-14.4)
[2022-04-25 18:57] LABS: ALBUMIN 3.7 g/dL (3.5-5.0); ALBUMIN/GLOBULIN RATIO 0.9 (0.8-2.0); ANION GAP 15.9 mmol/L (8-16); CALCIUM 8.5 mg/dL (8.4-10.2); CREATININE, SERUM 3.43 mg/dL (0.72-1.25)
[2022-04-25 19:05] LABS: POTASSIUM 6.9 mmol/L (3.5-5.1)
[2022-04-25] MEDS ORDERED: SODIUM BICARBONATE 8.4% INJ 50 ML SYR IV STA (19:06)
[2022-04-25] MEDS ORDERED: ALBUTEROL SULF 0.083% NEB SOLN 3 ML NEB NEB STA (19:06)
[2022-04-25] MEDS ORDERED: DEXTROSE 50% SYRINGE 50 ML IV STA (19:06)
[2022-04-25] MEDS ORDERED: INSULIN REGULAR, HUMAN 100 UNIT/1 ML IV ONE (19:15)
[2022-04-25] MEDS: CALCIUM GLUC 1 G/50 ML NACL 50 ML IV SCH ×2 (19:48→20:26)
== END 2022-04-25 23:23 | disposition other institution (70) ==
LOC: ER 17:48
DX: E87.5 Hyperkalemia (principal); N17.9 Acute kidney failure, unspecified; E11.65 Type 2 diabetes mellitus with hyperglycemia; I10 Essential (primary) hypertension; E78.5 Hyperlipidemia, unspecified; D64.9 Anemia, unspecified; J45.909 Unspecified asthma, uncomplicated; Z85.07 Personal history of malignant neoplasm of pancreas; Z20.822 Contact with and (suspected) exposure to COVID-19
CPT/HCPCS: 36415; 80053; 82948; 85025; 93005; 94799; 99284; J1817; J7799; U0002

== ENCOUNTER 2022-07-23 11:41 | Inpatient (IN) | payer MEDICARE ==
[~2022-07-23] VITALS: Ht 175.3 cm; Wt 61.2 kg
[2022-07-23 12:30] LABS: BASOPHILS % 0.6 % (0.0-1.0); EOSINOPHILS # (AUTO) 0.3 (0.0-0.4); EOSINOPHILS % 4.5 % (0.0-6.0); HEMATOCRIT 21.5 % (38.2-49.6); LYMPHOCYTES # (AUTO) 2.1 (1.0-3.2); LYMPHOCYTES % 31.7 % (18.0-39.1); MEAN CORPUSCULAR HEMOGLOBIN 29.6 pg (28-32); MEAN CORPUSCULAR HGB CONC 31.2 g/dL (31-35); MEAN CORPUSCULAR VOLUME 95.1 fL (81-99); MONOCYTES # (AUTO) 0.4 (0.2-0.8); MONOCYTES % 6.5 % (4.4-11.3); NEUTROPHILS # (AUTO) 3.6 (2.1-6.9); NEUTROPHILS % 54.9 % (38.7-80.0); RED BLOOD COUNT 2.26 x10e6/uL (4.3-5.7); RED CELL DISTRIBUTION WIDTH 15.1 % (11.7-14.4)
[2022-07-23 12:34] LABS: HEMOGLOBIN 6.7 g/dL (14.0-18.0)
[2022-07-23 12:35] LABS: PLATELET COUNT 199 x10e3/uL (140-360)
[2022-07-23] MEDS ORDERED: SEVOFLURANE INHAL SOLN 250 ML PEN BTL ONE (12:36)
[2022-07-23] MEDS ORDERED: PROPOFOL IV EMULSION 10 MG/ML 20 ML VIAL ONE (12:36)
[2022-07-23] MEDS ORDERED: ONDANSETRON HCL INJ 2MG/ML 2ML 2 MG/ML VIAL ONE (12:36)
[2022-07-23] MEDS ORDERED: POVIDONE IODINE 0.05% 0.05 % ML PO ONE (12:36)
[2022-07-23] MEDS ORDERED: LIDOCAINE HCL 2% LOCAL INJ 5 ML SDV VIAL INJ ONE (12:36)
[2022-07-23] MEDS ORDERED: SODIUM CHLORIDE 0.9% 250ML 250 ML IV ONE (12:45)
[2022-07-23] MEDS ORDERED: SODIUM CHLORIDE FLUSH 10 ML SYR INJ PRN (12:45)
[2022-07-23 12:50] LABS: ALBUMIN 3.5 g/dL (3.5-5.0); ALBUMIN/GLOBULIN RATIO 0.8 (0.8-2.0); ANION GAP 14.4 mmol/L (8-16); CREATININE, SERUM 4.2 mg/dL (0.72-1.25)
[2022-07-23 12:54] LABS: POTASSIUM 6.4 mmol/L (3.5-5.1)
[2022-07-23] MEDS ORDERED: SODIUM BICARBONATE 8.4% 50 ML VIAL IV STA (12:54)
[2022-07-23] MEDS ORDERED: ALBUTEROL SULFATE HFA 8GM INHALATION AEROSOL INH PRN (13:00)
[2022-07-23] MEDS ORDERED: DEXTROSE 50% SYRINGE 50 ML IV STA (13:05)
[2022-07-23] MEDS ORDERED: INSULIN REGULAR, HUMAN 100 UNIT/1 ML IV ONE (13:15)
[2022-07-23 13:19] LABS: INR 1.21; PROTHROMBIN TIME 15.8 seconds (11.9-14.5)
[2022-07-23 13:20] LABS: PARTIAL THROMBOPLASTIN TIME 36.6 seconds (23.8-35.5)
[2022-07-23] MEDS ORDERED: CALCIUM GLUC 1 G/50 ML NACL 50 ML IV ONE (13:30)
[2022-07-23 14:03] LABS: % IRON SATURATION 90 % (15-50); IRON 163 ug/dL (65-175); TOTAL IRON BINDING CAPACITY 182 ug/dL (261-478); TRANSFERRIN 130 mg/dL (174-364)
[2022-07-23] MEDS: SODIUM BICARBONATE 8.4% SYRING 150 ML in DEXTROSE 5% 1,000 ML IV SCH (14:07)
[2022-07-23] MEDS ORDERED: LIDOCAINE HCL 1% LOCAL INJ 20 ML VIAL ONE (15:10)
[2022-07-23] MEDS: SODIUM BICARBONATE 650 MG TAB PO SCH ×2 (15:12→20:46)
[2022-07-23] MEDS ORDERED: HEPARIN SOD (PORCINE) 1000 UNIT/ML SDV ONE ×2 (15:20→17:00)
[2022-07-23 16:01] VITALS: PULSE 70; RESP 18; O2SAT 97
[2022-07-23] MEDS ORDERED: SODIUM CHLORIDE 0.9% 1000ML 2,000 ML ONE (16:55)
[2022-07-23] MEDS ORDERED: MANNITOL 20% 500ML 500 ML IV ONE (16:55)
[2022-07-23] MEDS ORDERED: HEPARIN SOD (PORCINE) 5,000 UNIT/ML VIAL ONE (16:58)
[2022-07-23] MEDS ORDERED: MANNITOL 25% 12.5GM/50 ML VIAL IV PRN (17:30)
[2022-07-23] MEDS ORDERED: HEPARIN SOD (PORCINE) 1000 UNIT/ML SDV IV PRN (17:30)
[2022-07-23] MEDS ORDERED: SODIUM CHLORIDE 0.9% 1000ML 2,000 ML IV PRN (17:30)
[2022-07-23] MEDS ORDERED: SODIUM CHLORIDE 0.9% 250ML 500 ML IV PRN (17:30)
[2022-07-23 20:12] VITALS: PULSE 94; RESP 15; O2SAT 100
[2022-07-23] MEDS: BUDESONIDE/FORMOTEROL 160/4.5MCG INHALER INH SCH (20:12)
[2022-07-23 20:33] LABS: BASOPHILS % 0.6 % (0.0-1.0); EOSINOPHILS # (AUTO) 0.2 (0.0-0.4); EOSINOPHILS % 3.5 % (0.0-6.0); HEMOGLOBIN 7.9 g/dL (14.0-18.0); LYMPHOCYTES # (AUTO) 1.9 (1.0-3.2); LYMPHOCYTES % 34.4 % (18.0-39.1); MEAN CORPUSCULAR HEMOGLOBIN 29.3 pg (28-32); MEAN CORPUSCULAR HGB CONC 34.3 g/dL (31-35); MEAN CORPUSCULAR VOLUME 85.2 fL (81-99); MONOCYTES # (AUTO) 0.4 (0.2-0.8); MONOCYTES % 6.9 % (4.4-11.3); NEUTROPHILS # (AUTO) 2.9 (2.1-6.9); NEUTROPHILS % 52.9 % (38.7-80.0); PLATELET COUNT 138 x10e3/uL (140-360); RED CELL DISTRIBUTION WIDTH 14.6 % (11.7-14.4)
[2022-07-23 20:50] LABS: ALBUMIN 3.1 g/dL (3.5-5.0); ALBUMIN/GLOBULIN RATIO 0.9 (0.8-2.0); ANION GAP 15.4 mmol/L (8-16); CREATININE, SERUM 2.31 mg/dL (0.72-1.25); POTASSIUM 3.4 mmol/L (3.5-5.1)
[2022-07-24] VITALS (7 sets, daily range): BP systolic 167–172; BP diastolic 74; PULSE 65–89; RESP 17–21; TEMP 98.2; O2SAT 97–99
[2022-07-24] MEDS: SODIUM BICARBONATE 8.4% SYRING 150 ML in DEXTROSE 5% 1,000 ML IV SCH (04:25)
[2022-07-24 04:43] LABS: BASOPHILS % 0.8 % (0.0-1.0); EOSINOPHILS # (AUTO) 0.2 (0.0-0.4); EOSINOPHILS % 3.1 % (0.0-6.0); HEMOGLOBIN 7.6 g/dL (14.0-18.0); LYMPHOCYTES # (AUTO) 1.5 (1.0-3.2); LYMPHOCYTES % 30.5 % (18.0-39.1); MEAN CORPUSCULAR HEMOGLOBIN 34.1 pg (28-32); MEAN CORPUSCULAR HGB CONC 36.9 g/dL (31-35); MEAN CORPUSCULAR VOLUME 92.4 fL (81-99); MONOCYTES # (AUTO) 0.4 (0.2-0.8); MONOCYTES % 8.5 % (4.4-11.3); NEUTROPHILS # (AUTO) 2.7 (2.1-6.9); NEUTROPHILS % 55.9 % (38.7-80.0); PLATELET COUNT 134 x10e3/uL (140-360); RED BLOOD COUNT 2.23 x10e6/uL (4.3-5.7); RED CELL DISTRIBUTION WIDTH 15.6 % (11.7-14.4)
[2022-07-24 04:46] LABS: HEMATOCRIT 21.1 % (38.2-49.6)
[2022-07-24 05:00] LABS: ANION GAP 12.9 mmol/L (8-16); CALCIUM 7.7 mg/dL (8.4-10.2); CREATININE, SERUM 2.66 mg/dL (0.72-1.25); POTASSIUM 3.9 mmol/L (3.5-5.1)
[2022-07-24] MEDS ORDERED: SODIUM CHLORIDE 0.9% 250ML 250 ML IV ONE (05:00)
[2022-07-24] MEDS: LEVOTHYROXINE SODIUM 88 MCG TAB PO SCH (06:58)
[2022-07-24] MEDS: PANTOPRAZOLE SOD 40 MG TABEC PO SCH (07:30)
[2022-07-24] MEDS: BUDESONIDE/FORMOTEROL 160/4.5MCG INHALER INH SCH ×2 (08:00→19:07)
[2022-07-24] MEDS: SODIUM BICARBONATE 650 MG TAB PO SCH ×3 (08:34→20:26)
[2022-07-24] MEDS ORDERED: HEPARIN SOD (PORCINE) 1000 UNIT/ML SDV ONE (09:49)
[2022-07-24] MEDS ORDERED: SODIUM CHLORIDE 0.9% 1000ML 1,000 ML ONE (09:49)
[2022-07-24] MEDS ORDERED: LEVOTHYROXINE112 MCG PO (14:55)
[2022-07-24] MEDS ORDERED: SODIUM BICARBONATE 8.4% SYRING 150 ML in DEXTROSE 5% 1,000 ML IV SCH (18:30)
[2022-07-24] MEDS ORDERED: DEXTROSE 50% SYRINGE 50 ML IV PRN (22:00)
[2022-07-24] MEDS: INSULIN LISPRO 100 UNIT/1 ML 3ML VIAL SQ SCH (22:27)
[2022-07-25] VITALS (9 sets, daily range): BP systolic 113–163; BP diastolic 68–86; PULSE 68–86; RESP 18–20; TEMP 97.6–98.8; O2SAT 92–99
[2022-07-25] MEDS ORDERED: HYDRALAZINE HCL 20 MG/ML VIAL IV PRN (04:15)
[2022-07-25] MEDS ORDERED: METHYLPREDNISOLONE SOD SUCC 40 MG/ML VIAL 1ML IV ONE (04:45)
[2022-07-25] MEDS: LEVOTHYROXINE SODIUM 88 MCG TAB PO SCH (05:23)
[2022-07-25 05:32] LABS: BASOPHILS % 0.6 % (0.0-1.0); EOSINOPHILS # (AUTO) 0.1 (0.0-0.4); EOSINOPHILS % 1.5 % (0.0-6.0); HEMATOCRIT 21.2 % (38.2-49.6); HEMOGLOBIN 8.1 g/dL (14.0-18.0); LYMPHOCYTES # (AUTO) 1.6 (1.0-3.2); LYMPHOCYTES % 31.2 % (18.0-39.1); MEAN CORPUSCULAR HEMOGLOBIN 35.2 pg (28-32); MEAN CORPUSCULAR HGB CONC 38.2 g/dL (31-35); MEAN CORPUSCULAR VOLUME 92.2 fL (81-99); MONOCYTES # (AUTO) 0.7 (0.2-0.8); MONOCYTES % 13.4 % (4.4-11.3); NEUTROPHILS # (AUTO) 2.8 (2.1-6.9); NEUTROPHILS % 52.9 % (38.7-80.0); PLATELET COUNT 133 x10e3/uL (140-360); RED CELL DISTRIBUTION WIDTH 14.6 % (11.7-14.4)
[2022-07-25 07:10] LABS: ALBUMIN 2.6 g/dL (3.5-5.0); ALBUMIN/GLOBULIN RATIO 0.8 (0.8-2.0); ANION GAP 12.5 mmol/L (8-16); CREATININE, SERUM 2.13 mg/dL (0.72-1.25); MAGNESIUM 1.3 MG/DL (1.3-2.1); POTASSIUM 3.5 mmol/L (3.5-5.1)
[2022-07-25 07:13] LABS: CALCIUM 6.8 mg/dL (8.4-10.2)
[2022-07-25] MEDS: BUDESONIDE/FORMOTEROL 160/4.5MCG INHALER INH SCH ×2 (07:38→19:05)
[2022-07-25] MEDS: PANTOPRAZOLE SOD 40 MG TABEC PO SCH (09:25)
[2022-07-25] MEDS: INSULIN LISPRO 100 UNIT/1 ML 3ML VIAL SQ SCH ×4 (09:32→21:25)
[2022-07-25] MEDS: CALCITRIOL 0.25 MCG CAP PO SCH (09:41)
[2022-07-25] MEDS: CALCIUM CARBONATE 500 MG CHEWABLE TABS PO SCH ×3 (09:42→21:16)
[2022-07-25] MEDS: FOLIC ACID/CYANOCOB/PYRIDOXINE TAB PO SCH (09:54)
[2022-07-25] MEDS: ALBUTEROL/IPRATROPIUM 3 ML NEB NEB SCH ×2 (13:32→19:05)
[2022-07-25] MEDS: INSULIN GLARGINE 100 UNITS/ML VIAL SQ SCH (21:24)
[2022-07-26] VITALS (10 sets, daily range): BP systolic 156–165; BP diastolic 68–85; PULSE 77–90; RESP 18–20; TEMP 98–100; O2SAT 95–98
[2022-07-26] MEDS: ALBUTEROL/IPRATROPIUM 3 ML NEB NEB SCH ×4 (01:00→19:00)
[2022-07-26] MEDS ORDERED: IOPAMIDOL 370 MG/ML 100 ML INFUS..BTL INJ ONE (03:31)
[2022-07-26] MEDS: LEVOTHYROXINE SODIUM 88 MCG TAB PO SCH (06:19)
[2022-07-26 06:21] LABS: ALBUMIN 2.7 g/dL (3.5-5.0); ALBUMIN/GLOBULIN RATIO 0.8 (0.8-2.0); ANION GAP 11.7 mmol/L (8-16); CALCIUM 7.5 mg/dL (8.4-10.2); CREATININE, SERUM 2.38 mg/dL (0.72-1.25); POTASSIUM 3.7 mmol/L (3.5-5.1)
[2022-07-26 06:34] LABS: BASOPHILS % 0.6 % (0.0-1.0); EOSINOPHILS # (AUTO) 0.1 (0.0-0.4); EOSINOPHILS % 1.5 % (0.0-6.0); HEMATOCRIT 27.4 % (38.2-49.6); HEMOGLOBIN 9.1 g/dL (14.0-18.0); LYMPHOCYTES # (AUTO) 2.4 (1.0-3.2); LYMPHOCYTES % 36.2 % (18.0-39.1); MEAN CORPUSCULAR HEMOGLOBIN 29.3 pg (28-32); MEAN CORPUSCULAR HGB CONC 33.2 g/dL (31-35); MONOCYTES # (AUTO) 0.6 (0.2-0.8); MONOCYTES % 9.5 % (4.4-11.3); NEUTROPHILS # (AUTO) 3.4 (2.1-6.9); NEUTROPHILS % 51.6 % (38.7-80.0); PLATELET COUNT 115 x10e3/uL (140-360); RED BLOOD COUNT 3.11 x10e6/uL (4.3-5.7)
[2022-07-26 06:36] LABS: MEAN CORPUSCULAR VOLUME 88.1 fL (81-99)
[2022-07-26] MEDS: BUDESONIDE/FORMOTEROL 160/4.5MCG INHALER INH SCH ×2 (07:08→19:00)
[2022-07-26] MEDS: INSULIN LISPRO 100 UNIT/1 ML 3ML VIAL SQ SCH ×4 (07:30→21:00)
[2022-07-26] MEDS: CALCIUM CARBONATE 500 MG CHEWABLE TABS PO SCH ×3 (08:58→20:40)
[2022-07-26] MEDS: PANTOPRAZOLE SOD 40 MG TABEC PO SCH (08:58)
[2022-07-26] MEDS: FOLIC ACID/CYANOCOB/PYRIDOXINE TAB PO SCH (08:58)
[2022-07-26] MEDS: CALCITRIOL 0.25 MCG CAP PO SCH (08:58)
[2022-07-26] MEDS: INSULIN GLARGINE 100 UNITS/ML VIAL SQ SCH (21:00)
[2022-07-27] VITALS (9 sets, daily range): BP systolic 144–169; BP diastolic 79–88; PULSE 69–90; RESP 14–19; TEMP 97.9–98.8; O2SAT 95–98
[2022-07-27] MEDS: ALBUTEROL/IPRATROPIUM 3 ML NEB NEB SCH ×5 (01:00→23:51)
[2022-07-27] MEDS: LEVOTHYROXINE SODIUM 88 MCG TAB PO SCH (06:00)
[2022-07-27] MEDS: BUDESONIDE/FORMOTEROL 160/4.5MCG INHALER INH SCH ×2 (07:00→19:00)
[2022-07-27] MEDS: PANTOPRAZOLE SOD 40 MG TABEC PO SCH ×2 (07:30→17:40)
[2022-07-27] MEDS: INSULIN LISPRO 100 UNIT/1 ML 3ML VIAL SQ SCH ×4 (07:30→21:00)
[2022-07-27] MEDS: CALCIUM CARBONATE 500 MG CHEWABLE TABS PO SCH ×3 (09:00→21:07)
[2022-07-27] MEDS ORDERED: EPINEPHRINE 1 MG/ML 30ML VIAL ONE (11:33)
[2022-07-27] MEDS ORDERED: SODIUM CHLORIDE 0.9% 500ML 500 ML ONE (11:42)
[2022-07-27] MEDS ORDERED: HEPARIN SOD (PORCINE) 5,000 UNIT/ML VIAL ONE (11:44)
[2022-07-27] MEDS ORDERED: SODIUM CHLORIDE 0.9% 0 ML ONE (11:44)
[2022-07-27] MEDS ORDERED: SODIUM CHLORIDE 0.9% 250ML 250 ML ONE ×2 (12:10→12:18)
[2022-07-27] MEDS ORDERED: SODIUM CHLORIDE 0.9% 100 ML ONE (12:11)
[2022-07-27] MEDS ORDERED: MIDAZOLAM HCL 2 MG/2 ML VIAL ONE (12:17)
[2022-07-27] MEDS ORDERED: CEFTRIAXONE 1 GM VIAL ONE (12:17)
[2022-07-27] MEDS ORDERED: FENTANYL CITRATE/PF 100MCG/2 ML INJ ONE ×3 (12:18→14:08)
[2022-07-27] MEDS ORDERED: HYDROCODONE/APAP 5MG-325MG TAB PO PRN (13:45)
[2022-07-27] MEDS ORDERED: HYDRALAZINE HCL 20 MG/ML VIAL ONE (14:02)
[2022-07-27] MEDS: FOLIC ACID/CYANOCOB/PYRIDOXINE TAB PO SCH (17:38)
[2022-07-27] MEDS: CALCITRIOL 0.25 MCG CAP PO SCH (17:39)
[2022-07-27 18:10] LABS: ANION GAP 14.9 mmol/L (8-16); CALCIUM 7.5 mg/dL (8.4-10.2); CREATININE, SERUM 3.1 mg/dL (0.72-1.25); POTASSIUM 3.9 mmol/L (3.5-5.1)
[2022-07-27] MEDS: INSULIN GLARGINE 100 UNITS/ML VIAL SQ SCH (22:32)
[2022-07-28] MEDS: LEVOTHYROXINE SODIUM 88 MCG TAB PO SCH (05:43)
[2022-07-28] MEDS: BUDESONIDE/FORMOTEROL 160/4.5MCG INHALER INH SCH (07:00)
[2022-07-28] MEDS: ALBUTEROL/IPRATROPIUM 3 ML NEB NEB SCH ×2 (07:00→11:47)
[2022-07-28] MEDS: INSULIN LISPRO 100 UNIT/1 ML 3ML VIAL SQ SCH ×3 (07:30→17:00)
[2022-07-28 08:00] VITALS: BP 146/75; PULSE 75; RESP 20; TEMP 98.2; O2SAT 100
[2022-07-28 08:20] VITALS: PULSE 66; RESP 16; O2SAT 99
[2022-07-28 08:47] VITALS: BP 146/75; PULSE 75; RESP 20; TEMP 98.2; O2SAT 100
[2022-07-28] MEDS: CALCIUM CARBONATE 500 MG CHEWABLE TABS PO SCH ×2 (09:59→15:37)
[2022-07-28] MEDS: PANTOPRAZOLE SOD 40 MG TABEC PO SCH (09:59)
[2022-07-28] MEDS: CALCITRIOL 0.25 MCG CAP PO SCH (09:59)
[2022-07-28] MEDS: FOLIC ACID/CYANOCOB/PYRIDOXINE TAB PO SCH (09:59)
[2022-07-28] MEDS ORDERED: CLONIDINE HCL 0.1 MG TAB PO ONE (12:45)
[2022-07-28 13:18] VITALS: BP 170/93; PULSE 74; RESP 21; TEMP 98; O2SAT 100
== END 2022-07-28 18:28 | disposition home or self-care (01) | DRG 628 ==
LOC: ER 11:57 → ERHOLD 12:42 → MED/SURG3 07-24 13:50
PROVIDERS: ADMIT Internal Medicine; ATTEND Internal Medicine
PROC: 02HV33Z Insertion of Infusion Device into Superior Vena Cava, Percutaneous Approach (ICD-10-PCS; principal; 2022-07-23)
PROC: B548ZZA Ultrasonography of Superior Vena Cava, Guidance (ICD-10-PCS; 2022-07-23)
PROC: 5A1D70Z Performance of Urinary Filtration, Intermittent, Less than 6 Hours Per Day (ICD-10-PCS; 2022-07-23)
PROC: B5181ZA Fluoroscopy of Superior Vena Cava using Low Osmolar Contrast, Guidance (ICD-10-PCS; 2022-07-23)
PROC: 30233N1 Transfusion of Nonautologous Red Blood Cells into Peripheral Vein, Percutaneous Approach (ICD-10-PCS; 2022-07-23)
PROC: 031C09F Bypass Left Radial Artery to Lower Arm Vein with Autologous Venous Tissue, Open Approach (ICD-10-PCS; 2022-07-27)
PROC: 0JH63XZ Insertion of Tunneled Vascular Access Device into Chest Subcutaneous Tissue and Fascia, Percutaneous Approach (ICD-10-PCS; 2022-07-27)
PROC: 02HV33Z Insertion of Infusion Device into Superior Vena Cava, Percutaneous Approach (ICD-10-PCS; 2022-07-27)
PROC: B5181ZA Fluoroscopy of Superior Vena Cava using Low Osmolar Contrast, Guidance (ICD-10-PCS; 2022-07-27)
PROC: 05JY0ZZ Inspection of Upper Vein, Open Approach (ICD-10-PCS; 2022-07-27)
DX: E87.5 Hyperkalemia (principal); N18.6 End stage renal disease; N17.9 Acute kidney failure, unspecified; I12.0 Hypertensive chronic kidney disease with stage 5 chronic kidney disease or end stage renal disease; E87.20 Acidosis, unspecified; D63.1 Anemia in chronic kidney disease; N25.89 Other disorders resulting from impaired renal tubular function; E11.22 Type 2 diabetes mellitus with diabetic chronic kidney disease; J44.9 Chronic obstructive pulmonary disease, unspecified; K21.9 Gastro-esophageal reflux disease without esophagitis; Z99.2 Dependence on renal dialysis; Z79.4 Long term (current) use of insulin; Z85.07 Personal history of malignant neoplasm of pancreas
CPT/HCPCS: 0223U; 36415; 36556; 36558; 71045; 74176; 74470; 76937; 77001; 80048; 80053; 82728; 82948; 83036; 83540; 83735; 84443; 84466; 85025; 85610; 85730; 86704; 86706; 86707; 86850; 86900; 86920; 87350; 93005; 94640; 94664; 94799; 99152; 99252; 99285; C1752; C1769; C1892; J0696; J1644; J2001; J2250; J2405; J2920; J7030; J7040; J7050; J7070; J7799; P9016; Q9967